=== PATIENT | female | born 1985 | race Caucasian/White ===

== ENCOUNTER 2019-01-09 08:20 | Inpatient (IN) | payer OTHER ==
--- NOTE | 2019-01-08 20:30 | Pre-op HX & Phy Repo 2 SIG ---
DATE OF ADMISSION: 01/09/2019 DATE OF SCHEDULED ADMISSION: 01/09/2019. HISTORY OF PRESENT ILLNESS: The patient is a 33-year-old female in overall stable health with a malfunctioning Canseco continent ileostomy with severe difficulty with intubation. The patient developed ulcerative colitis and in 2013 underwent abdominal colectomy with creation of a conventional Kady ileostomy. In July 2017, she underwent surgery in [place] including removal of the remaining sigmoid colon, rectum, and anus involving abdomino-perineal proctectomy and creation of a Canseco continent ileostomy. The patient did well intubating three times a day and not at all at night with her Canseco pouch. However, in 06/09/2018 in [place] she underwent total abdominal hysterectomy and revision of her Canseco continent ileostomy because of some difficulty with intubation. After that surgery, the patient had an infection, wound separation which was re-sutured and packed. Following this, the patient had more difficulty intubating and on 12/01/2018 and 12/13/2018 at her home in [place], she had to go to the emergency room and finally underwent a Canseco pouch endoscopy and a 26-[place]an Malagon catheter was placed with the inflated balloon so it could not come out. Since that time, she keeps the indwelling catheter to a drainage bag, but she has stool leaking around it and increasing peristomal skin irritation and peristomal pain. She is scheduled to undergo admission, pouch endoscopy and surgical revision of her malfunctioning Canseco continent ileostomy. She states that she does not have any incontinence despite the difficulty with intubation except leaking stool around the indwelling catheter. The patient states that she has had pouchitis since November 2018, which she says is chronic and she takes cefdinir. PAST MEDICAL HISTORY: Medications: albuterol, spironolactone for cystic acne, Xanax, cefdinir for pouchitis, Cleocin vaginal gel, Bentyl, atarax, lamotrigine for depression, methenamine-hyoscyamine for bladder spasms, and Elmiron for her bladder. ALLERGIES: Codeine, Reglan, sulfa and Vicryl sutures, which she was told by her surgeon when she got a wound infection. OPERATIONS: In addition to the above, she has undergone cholecystectomy, removal of a pilonidal cyst, and section. REVIEW OF SYSTEMS: She is 1, para 1. She has a history of interstitial cystitis, fibromyalgia, some chronic drainage from the perineum, and history of endometriosis. She states that she has perineal sinus. PHYSICAL EXAMINATION: The patient is 5 feet and 3 inches, approximately 150 pounds. She is arriving from [place] of [place] and will be examined upon arrival and dictated separately. IMPRESSION: 1. Malfunctioning Canseco continent intestinal reservoir continent ileostomy with severe difficulty with intubation. 2. History of ulcerative colitis. 3. STATUS POST MULTIPLE ABDOMINAL OPERATIONS: 3.1. Cholecystectomy. 3.2. section. 3.3. Abdominal colectomy and Kady ileostomy in 2013. 3.4. Canseco continent intestinal reservoir and abdomino-perineal proctectomy in 07/27/2017 3.5. Total abdominal hysterectomy with revision of Canseco continent ileostomy in 06/09/2018. (All of these operations done in other states). PLAN: The patient will be admitted and undergo insertion of a dual lumen PICC line, bowel prep with intravenous hydration to prevent otherwise inevitable dehydration in this patient with ileostomy, pouch endoscopy, and continuous drainage of the pouch to suction or gravity drainage in preparation for surgery 01/10/2019. I have had a full discussion with the patient regarding the nature of her condition, the nature of the surgery, indications, alternatives, options, and risks including bleeding, infection, injury to adjacent structures or organs, additional difficulties that could occur with her Canseco pouch function or structure, etc. I will have another complete discussion in person when she arrives from out of state. Jose Aceves M.D. : YEVGENIY JOB#: [id number] CC: FIDENCIO
[~2019-01-09] VITALS: Ht 165.1 cm; Wt 64.9 kg
[2019-01-09 09:20] VITALS: BP 110/66
--- NOTE | 2019-01-09 09:20 | NUR ---
NURSE NOTES: PATIENT RECEIVED A DIRECT ADMISSION TO ROOM 306-2. PT. AOX4, AMBULATORY. PATIENT AND SPOUSE ORIENTED TO ROOM. DISCUSSED PLAN OF CARE FOR THE DAY. QUESTIONS ANSWERED, NEEDS MET. WILL BE SEEN BY DR. CLAYTON TODAY. CALL LIGHT WITHIN REACH, BED IN LOWEST AND LOCKED POSITION.
[2019-01-09 10:09] LABS: BASOPHILS % (AUTO) 1.3 % (0.0-2.0); EOSINOPHILS % (AUTO) 8.4 % (0.0-3.0); HEMATOCRIT 40.7 % (37.0-47.0); HEMOGLOBIN 13.1 G/DL (12.0-16.0); LYMPHOCYTES % (AUTO) 28.4 % (20.0-45.0); MEAN CORPUSCULAR VOLUME 79 FL (80-99); MONOCYTES % (AUTO) 6.7 % (1.0-10.0); NEUTROPHILS % (AUTO) 55.2 % (45.0-75.0); PLATELET COUNT 464 K/UL (150-450); RED BLOOD COUNT 5.15 M/UL (4.20-5.40); WHITE BLOOD COUNT 8.3 K/UL (4.8-10.8)
[2019-01-09 10:12] LABS: APPEARANCE,URINE CLEAR; BILIRUBIN, URINE NEGATIVE (NEGATIVE); COLOR,URINE PALE YELLOW; GLUCOSE, URINE (UA) NEGATIVE (NEGATIVE); KETONES,URINE NEGATIVE (NEGATIVE); LEUKOCYTE ESTERASE ,URINE NEGATIVE (NEGATIVE); NITRITE,URINE NEGATIVE (NEGATIVE); PH,URINE 6 (4.5-8.0); PROTEIN,URINE NEGATIVE (NEGATIVE); UROBILINOGEN,URINE NORMAL MG/DL (0.0-1.0)
[2019-01-09 10:19] LABS: INR 0.9 (0.9-1.1)
[2019-01-09 10:23] LABS: ANION GAP 10 mmol/L (5-15); BLOOD UREA NITROGEN 5 mg/dL (7-18); CARBON DIOXIDE 27 MMOL/L (21-32); CHLORIDE 105 MMOL/L (98-107); CREATININE 0.7 MG/DL (0.55-1.30); POTASSIUM 3.7 MMOL/L (3.5-5.1); SODIUM 142 MMOL/L (136-145)
[2019-01-09 10:28] LABS: ALANINE AMINOTRANSFERASE 31 U/L (12-78); ALBUMIN 4.2 G/DL (3.4-5.0); ALKALINE PHOSPHATASE 60 U/L (46-116); ASPARTATE AMINO TRANSFERASE 18 U/L (15-37); BILIRUBIN,TOTAL 0.3 MG/DL (0.2-1.0)
[2019-01-09] MEDS ORDERED: Lidocaine 1% Plain 30 ml INJ ONE (10:30)
[2019-01-09] MEDS ORDERED: Heparin1,000 units/500ml Premix(Conc:2 units/ml) IV ONE (10:30)
--- NOTE | 2019-01-09 11:20 | NUR ---
RADIOLOGY DEPT., CHEST X-RAY DONE.-P.DYE
--- NOTE | 2019-01-09 11:20 | Diagnostic Imaging Report ---
Indication: Shortness of breath Technique: One view of the chest Comparison: none Findings: Lungs and pleural spaces are clear. Heart size is normal Impression: No acute process
[2019-01-09 11:28] VITALS: BP 121/78
--- NOTE | 2019-01-09 11:58 | NUR ---
*-* CASE MANAGEMENT NOTES *-* EMAIL RECEIVED FROM OMAR MAYO TO FAX CLINICALS AFTER 2N DAY IN HOUSE. JOVANNI POPE ASSIGNED PLS FAX CLINICALS TO [phone]
[2019-01-09] MEDS: Neomycin Sulfate 500mg Tab ORAL SCH ×3 (12:07→20:51)
--- NOTE | 2019-01-09 12:07 | Pre-Procedure Note/Attestation ---
Pre-Procedure Note/Attestation Complete Prior to Procedure Planned Procedure: not applicable Procedure Narrative: Canseco continent ileostomy pouch endoscopy Indications for Procedure Pre-Operative Diagnosis: malfunctioning Canseco continent ileostomy with inability to intubate Attestation I attest that I discussed the nature of the procedure; its benefits; risks and complications; and alternatives (and the risks and benefits of such alternatives ), prior to the procedure, with the patient (or the patient's legal malt liquors sales representative). I attest that, if there was a reasonable possibility of needing a blood transfusion, the patient (or the patient's legal malt liquors sales representative) was given the [facility] standardized written summary, pursuant to the Francisco Javier [place] Blood Safety Act ([place] Health and Safety Code # 1645, as amended). I attest that I re-evaluated the patient just prior to the surgery and that there has been no change in the patient's H&P, except as documented below: none Jose Aceves MD Jan 09, 2019 12:07
--- NOTE | 2019-01-09 13:31 | Brief Operative Note ---
Immediate Post Operative Note Operative Note Pre-op Diagnosis: malfunctioning Canseco continent ileostomy with inability to intubate Procedure: Canseco continent ileostomy pouch endoscopy Post-op Diagnosis: redundant and angulated access segment Post-op Diagnosis: same as pre-op Findings: consistent w/pre-op dx studies Surgeon: farida Anesthesia: other - none Specimen: none Complications: none Condition: stable Fluids: none Estimated Blood Loss: none Drains: other - 28 Malagon to Canseco pouch Implant(s) used?: No Jose Aceves MD Jan 09, 2019 13:31
--- NOTE | 2019-01-09 14:15 | Pre-Procedure Note/Attestation ---
Pre-Procedure Note/Attestation Complete Prior to Procedure Planned Procedure: left Procedure Narrative: PICC Indications for Procedure Pre-Operative Diagnosis: needs extermination inspector IV access Attestation I attest that I discussed the nature of the procedure; its benefits; risks and complications; and alternatives (and the risks and benefits of such alternatives ), prior to the procedure, with the patient (or the patient's legal wire rope sales representative). I attest that, if there was a reasonable possibility of needing a blood transfusion, the patient (or the patient's legal wire rope sales representative) was given the [facility] standardized written summary, pursuant to the Francisco Javier [place] Blood Safety Act ([place] Health and Safety Code # 1645, as amended). I attest that I re-evaluated the patient just prior to the surgery and that there has been no change in the patient's H&P, except as documented below: Will Cee MD Jan 09, 2019 14:15
--- NOTE | 2019-01-09 14:16 | Brief Operative Note ---
Immediate Post Operative Note Operative Note Pre-op Diagnosis: needs long term care pharmacist IV access Procedure: PICC Post-op Diagnosis: same as pre-op Surgeon: Jose Armando Wilcox Anesthesia: local Specimen: none Complications: none Condition: stable Fluids: none Implant(s) used?: No Will Wilcox MD Jan 09, 2019 14:16
--- NOTE | 2019-01-09 14:18 | NUR ---
LEFT UPPER EXTREMITY PICC LINE PLACEMENT BY DR. NURIS AMATO. FA
--- NOTE | 2019-01-09 14:23 | Diagnostic Imaging Report ---
Indications: Needs long-term IV access Technique: Ultrasound confirms patent compressible left basilic vein. Total sterile technique, including sterile probe cover and sterile gel, hat, mask, sterile gown, large sterile drape, and preparation with 2% chlorhexidine utilized. Local anesthesia with 1% lidocaine. Under real-time ultrasound guidance, puncture basilic vein using 21-gauge needle, documented and archived, passage 0.018 guidewire under direct fluoroscopy, which was used to determine appropriate catheter length, exchange for 4 Maldivian peel-away sheath. 4 Maldivian Bard dual-lumen power PICC cut to 46 cm. It was inserted through the peel-away sheath. Peel-away sheath and guidewire removed. Catheter fixed to the skin. Both catheter ports aspirated and flushed. Patient tolerated procedure well, without immediate complication. Digital radiograph documents satisfactory catheter tip position, at the cavoatrial junction. Total fluoroscopy time 13.4 seconds. Total dose area product [id number] [id number] Total number of images: 1 Impression: Successful placement of left arm PICC under sonographic and fluoroscopic guidance, as described above.
[2019-01-09 14:25] VITALS: BP 108/67
--- NOTE | 2019-01-09 14:26 | NUR ---
NURSE NOTES: PATIENT RETURNED FROM GI LAB AND PLACEMENT OF PICC LINE TO LEFT UPPER EXTREMITY. AOX4. UP TO BEDSIDE HAVING LUNCH. DENIES PAIN. VSS. AFEBRILE . ILEOSTOMY CONNECTED TO DRAINAGE BAG. DISCUSSED PLAN OF CARE THIS EVENING. VERBALIZED UNDERSTANDING. CALL LIGHT WITHIN REACH. SPOUSE AT BEDSIDE.
[2019-01-09] MEDS ORDERED: BENTYL10 MG/1 ML PO (15:04)
[2019-01-09] MEDS ORDERED: CEFDINIR300 MG PO (15:04)
[2019-01-09] MEDS ORDERED: VISTARIL50 MG ORAL (15:04)
[2019-01-09] MEDS ORDERED: LAMICTAL100 MG ORAL (15:04)
[2019-01-09] MEDS ORDERED: NEXPLANON68 MG SQ (15:04)
[2019-01-09] MEDS ORDERED: ELMIRON100 MG ORAL (15:04)
[2019-01-09] MEDS ORDERED: ALBUTEROL SULF8.5 GM INH (15:04)
[2019-01-09] MEDS ORDERED: SPIRONOLACTONE100 MG ORAL (15:04)
[2019-01-09] MEDS ORDERED: ESTRADIOL-NORE1 EACH PO (15:04)
[2019-01-09] MEDS ORDERED: XANAX0.25 MG ORAL (15:04)
[2019-01-09 16:00] VITALS: BP 99/66
--- NOTE | 2019-01-09 16:45 | Procedure Note ---
DATE OF PROCEDURE: 01/09/2019 ENDOSCOPY PROCEDURE REPORT ENDOSCOPIST: Jose Aceves M.D. ANESTHESIA: None. SEDATION: None. PRE-ENDOSCOPY DIAGNOSES: 1. Malfunctioning Canseco continent ileostomy with inability to intubate to evacuate stool. 2. History of ulcerative colitis. 3. Status post multiple abdominal operations including proctocolectomy and Canseco pouch with most recently surgery June 09, 2018, total abdominal hysterectomy and Canseco pouch revision, all done elsewhere. POST-ENDOSCOPY DIAGNOSES: 1. Malfunctioning Canseco continent ileostomy with inability to intubate to evacuate stool. 2. History of ulcerative colitis. 3. Status post multiple abdominal operations including proctocolectomy and Canseco pouch with most recently surgery June 09, 2018, total abdominal hysterectomy and Canseco pouch revision, all done elsewhere. ENDOSCOPY PERFORMED: Canseco continent ileostomy pouch endoscopy. FINDINGS: Elongated, redundant and angulated access segment. The pouch mucosa is completely normal. The nipple valve is well formed circumferentially. DESCRIPTION OF PROCEDURE: The patient was taken to the GI lab and without any anesthesia or sedation given or required, she was positioned supine. Initially, I irrigated her indwelling 26-[place]raltarian Malagon catheter placed several weeks ago during an emergency endoscopy in [place] when she could not get a catheter into her pouch. Once I irrigated this clear, I decompressed the balloon and took out the catheter. I used a GIF-P140 endoscope entering the stoma and under direct vision, the distance to the tip of the valve was 12 cm which in this patient should be approximately 7 cm. The pouch is entered. The pouch is distensible and well-formed. The mucosa is completely normal throughout. Retroflexed views revealed a circumferentially well-formed nipple valve although slightly shortened perhaps 3.5 to 4 cm instead of 5. Withdrawal views confirmed the above findings. After removing the endoscope, I was readily able to insert a 28-Gibralt[place] Malagon catheter into the pouch confirmed by irrigation, taped to the skin, dressing over the stoma and connected to a gravity drainage bag. The patient will be prepared for surgery laparotomy with revision of Canseco continent ileostomy in the morning. She tolerated the endoscopy well. Jose Aceves M.D. DR: Jerry JOB#: [id number] CC: FIDENCIO
--- NOTE | 2019-01-09 16:51 | Anethesia Preoperative Eval ---
Anesthesia Pre-op PMH/ROS General Date of Evaluation: Jan 09, 2019 Time of Evaluation: 16:47 Anesthesiologist: Gutierrez ASA Score: ASA 2 Mallampati Score Class I : Soft palate, uvula, fauces, pillars visible Class II: Soft palate, uvula, fauces visible Class III: Soft palate, base of uvula visible Class IV: Only hard plate visible Mallampati Classification: Class II Surgeon: Yola Diagnosis: Malfunctioning continent pouch Surgical Procedure: Revision of continent pouch Anesthesia History: none Family History: no anesthesia problems Allergies: Coded Allergies: CODEINE (Verified Allergy, Unknown, 01/09/19) METOCLOPRAMIDE (Verified Allergy, Unknown, 01/09/19) SULFA (SULFONAMIDE ANTIBIOTICS) (Verified Allergy, Unknown, 01/09/19) SUTURE (Verified Allergy, Unknown, 01/09/19) VICRYL CIPROFLOXACIN (Verified Adverse Reaction, Unknown, 01/09/19) ANGRY, CRYING, VERY EMOTIONAL. Medications: see eMAR Patient NPO?: Yes Past Medical History Cardiovascular: Denies: HTN, CAD, [place], valve dz, arrhythmia, other Pulmonary: Denies: asthma, COPD, TAMAR, other Gastrointestinal/Genitourinary: Reports: GERD, other - h/o UC s/p total colectomy; Denies: CRI, ESRD Neurologic/Psychiatric: Reports: depression/anxiety; Denies: dementia, CVA, TIA, other Endocrine: Denies: DM, hypothyroidism, steroids, other HEENT: Denies: cataract (L), cataract (R), glaucoma, EGEGIK (L), EGEGIK (R), other Hematology/Immune: Reports: anemia - mild; Denies: DVT, bleeding disorder, other Musculoskeletal/Integumentary: Denies: OA, RA, DJD, DDD, edema, other PMH Narrative: as above PSxH Narrative: multiple abdominal Sx, see H&P Anesthesia Pre-op Phys. Exam Physician Exam Last Vital Signs Date Time Temp Pulse Resp B/P (MAP) Pulse Ox O2 Delivery O2 Flow Rate FiO2 01/09/19 16:00 98.3 74 20 99/66 (77) 97 01/09/19 09:37 Room Air Constitutional: NAD Neurologic: CN 2-12 intact Cardiovascular: RRR, no M/R/G Respiratory: CTA Gastrointestinal: S/NT/ND Airway Exam Mallampati Score: Class II MO: full Neck: flexible ROM: full Teeth: intact Dentures: no upper, no lower Anesthesia Pre-op A/P Labs Hematology Test 01/09/19 10:00 White Blood Count 8.3 K/UL (4.8-10.8) Red Blood Count 5.15 M/UL (4.20-5.40) Hemoglobin 13.1 G/DL (12.0-16.0) Hematocrit 40.7 % (37.0-47.0) Mean Corpuscular Volume 79 FL (80-99) L Mean Corpuscular Hemoglobin 25.4 PG (27.0-31.0) L Mean Corpuscular Hemoglobin Concent 32.2 G/DL (32.0-36.0) Red Cell Distribution Width 12.0 % (11.6-14.8) Platelet Count 464 K/UL (150-450) H Mean Platelet Volume 5.5 FL (6.5-10.1) L Neutrophils (%) (Auto) 55.2 % (45.0-75.0) Lymphocytes (%) (Auto) 28.4 % (20.0-45.0) Monocytes (%) (Auto) 6.7 % (1.0-10.0) Eosinophils (%) (Auto) 8.4 % (0.0-3.0) H Basophils (%) (Auto) 1.3 % (0.0-2.0) Coagulation Test 01/09/19 10:00 Prothrombin Time 9.9 SEC (9.30-11.50) Prothromb Time International Ratio 0.9 (0.9-1.1) Activated Partial Thromboplast Time 32 SEC (23-33) Chemistry Test 01/09/19 10:00 Sodium Level 142 MMOL/L (136-145) Potassium Level 3.7 MMOL/L (3.5-5.1) Chloride Level 105 MMOL/L (98-107) Carbon Dioxide Level 27 MMOL/L (21-32) Anion Gap 10 mmol/L (5-15) Blood Urea Nitrogen 5 mg/dL (7-18) L Creatinine 0.7 MG/DL (0.55-1.30) Estimat Glomerular Filtration Rate > 60 mL/min (>60) Glucose Level 91 MG/DL (74-106) Calcium Level 9.0 MG/DL (8.5-10.1) Total Bilirubin 0.3 MG/DL (0.2-1.0) Aspartate Amino Transf (AST/SGOT) 18 U/L (15-37) Alanine Aminotransferase (ALT/SGPT) 31 U/L (12-78) Alkaline Phosphatase 60 U/L (46-116) Total Protein 8.3 G/DL (6.4-8.2) H Albumin 4.2 G/DL (3.4-5.0) Globulin 4.1 g/dL Albumin/Globulin Ratio 1.0 (1.0-2.7) Risk Assessment & Plan Assessment: ASA 2 Plan: GA with ETT, PONV prevention Status Change Before Surgery: No Pre-Antibiotics Drug: as scheduled Valentin Whitley MD Jan 09, 2019 16:51
--- NOTE | 2019-01-09 16:56 | General Progress Note ---
Progress Note Progress Note H&P dictated. Full discussion with patient and Endoscopy revealed elongated, redundant and angulated access segment. Normal pouch and valve Jose Aceves MD Jan 09, 2019 16:56
[2019-01-09] MEDS: D5 1/2NS w/KCl 20mEq 1,000 ML IV SCH (17:46)
[2019-01-09] MEDS ORDERED: NS Irrig 1000ml ONE (18:33)
--- NOTE | 2019-01-09 18:35 | NUR ---
NURSE NOTES: PATIENT DOING WELL. TOLERATING CLEAR LIQUIDS. PRE-OP COMPLETED. SEEN BY FORREST PEPE THIS EVENING. SPUSE PRESENT AT THE TIME. AMBULATING AROUND UNIT.
--- NOTE | 2019-01-09 19:39 | NUR ---
HAND-OFF: Report given to SAMAN HIRSCH RN.
[2019-01-09 20:00] VITALS: BP 110/76
[2019-01-09] MEDS: Ampicillin/Sulbactam Sod 3 GM in NS 110 ML IV SCH (23:13)
[2019-01-10] VITALS (17 sets, daily range): BP systolic 90–129; BP diastolic 50–70
[2019-01-10] MEDS: D5 1/2NS w/KCl 20mEq 1,000 ML IV SCH (03:00)
--- NOTE | 2019-01-10 03:15 | Pre-op HX & Phy Repo 2 SIG ---
DATE OF ADMISSION: 01/09/2019 SUBJECTIVE: The [place] and is examined. She is well developed and well nourished, 5 foot 3 inches, approximately 150 pounds, in stable condition with an indwelling catheter in her Canseco continent ileostomy pouch, which is plugged. OBJECTIVE: HEENT: Within normal limits. LUNGS: Clear. HEART: Regular rhythm. BREASTS: Without masses. ABDOMEN: Soft. There is a lower midline scar and a transverse suprapubic scar from her prior operations. There is no evidence of abdominal wall hernia. The stoma of her Canseco continent ileostomy is low in the right lower quadrant and well-formed. PELVIC: Status post hysterectomy. RECTAL: Status post proctectomy. EXTREMITIES: Without edema. Pulses 2+ femoral to pedal bilaterally. NEUROLOGIC: Physiologic. IMPRESSION: 1. Malfunctioning Canseco continent ileostomy with severe inability to intubate, to evacuate stool. 2. History of ulcerative colitis. 3. Depression. 4. Interstitial cystitis. 5. Fibromyalgia. 6. STATUS POST MULTIPLE ABDOMINAL OPERATIONS: 6.1. Cholecystectomy. 6.2. section. 6.3. Abdominal colectomy and Kady ileostomy in 2013. 6.4. Canseco continent intestinal reservoir and abdominoperineal proctectomy performed in [place] July 27, 2017. 6.5. Total abdominal hysterectomy with revision of Canseco continent ileostomy performed in [place] June 09, 2018. PLAN: The patient will be admitted and undergo insertion of a dual lumen PICC line. She will receive intravenous hydration during her bowel prep. A pouch endoscopy will be performed and she will have a catheter inserted to continuous gravity drainage in preparation for surgery 01/10/2019. I have had a complete discussion with the patient regarding her surgery indications, alternatives, options, and risks. Jose Aceves M.D. DR: CYNTHIA/GAYATRI JOB#: [id number] CC:
[2019-01-10] MEDS: Ampicillin/Sulbactam Sod 3 GM in NS 110 ML IV SCH ×4 (05:28→23:29)
[2019-01-10] MEDS ORDERED: Heparin 5000 units/ml inj SUBQ SCH (05:30)
[2019-01-10 05:46] LABS: BASOPHILS % (AUTO) 1.1 % (0.0-2.0); HEMATOCRIT 38.2 % (37.0-47.0); HEMOGLOBIN 12.5 G/DL (12.0-16.0); LYMPHOCYTES % (AUTO) 23.4 % (20.0-45.0); MEAN CORPUSCULAR VOLUME 79 FL (80-99); MONOCYTES % (AUTO) 8.8 % (1.0-10.0); NEUTROPHILS % (AUTO) 55.8 % (45.0-75.0); PLATELET COUNT 402 K/UL (150-450); RED BLOOD COUNT 4.82 M/UL (4.20-5.40); RED CELL DISTRIBUTION WIDTH 13.2 % (11.6-14.8); WHITE BLOOD COUNT 7.3 K/UL (4.8-10.8)
[2019-01-10 06:09] LABS: ALANINE AMINOTRANSFERASE 28 U/L (12-78); ALBUMIN 3.6 G/DL (3.4-5.0); ALKALINE PHOSPHATASE 52 U/L (46-116); ANION GAP 8 mmol/L (5-15); ASPARTATE AMINO TRANSFERASE 20 U/L (15-37); BILIRUBIN,TOTAL 0.6 MG/DL (0.2-1.0); BLOOD UREA NITROGEN 3 mg/dL (7-18); CALCIUM 8.3 MG/DL (8.5-10.1); CARBON DIOXIDE 26 MMOL/L (21-32); CHLORIDE 107 MMOL/L (98-107); CREATININE 0.7 MG/DL (0.55-1.30); FERRITIN 31 NG/ML (8-388); POTASSIUM 3.5 MMOL/L (3.5-5.1); SODIUM 141 MMOL/L (136-145)
--- NOTE | 2019-01-10 07:00 | Pre-Procedure Note/Attestation ---
Pre-Procedure Note/Attestation Complete Prior to Procedure Planned Procedure: not applicable Procedure Narrative: laparotomy and revision of Canseco Continent Ileostomy; possible gastrostomy; curette and cauterize perineal and pilonidal sinus tracts Indications for Procedure Pre-Operative Diagnosis: malfunctioning Canseco continent ileostomy; chronic perineal and pilonidal sinus tracts Attestation I attest that I discussed the nature of the procedure; its benefits; risks and complications; and alternatives (and the risks and benefits of such alternatives ), prior to the procedure, with the patient (or the patient's legal career representative). I attest that, if there was a reasonable possibility of needing a blood transfusion, the patient (or the patient's legal career representative) was given the [place] [facility] standardized written summary, pursuant to the Francisco Javier [place] Blood Safety Act ([place] Health and Safety Code # 1645, as amended). I attest that I re-evaluated the patient just prior to the surgery and that there has been no change in the patient's H&P, except as documented below: none Jose Aceves MD Jan 10, 2019 07:00
[2019-01-10] MEDS ORDERED: NeoSporin Gu Irrig 1ml Amp IRRIG ONE (07:20)
[2019-01-10] MEDS ORDERED: Bacitracin 50000 Units Vial ONE (07:20)
[2019-01-10] MEDS ORDERED: Rocuronium Bromide 50mg/5ml Inj IV ONE (07:26)
[2019-01-10] MEDS ORDERED: fentaNYL 100 mcg/2 mL IV ONE (07:27)
[2019-01-10] MEDS ORDERED: Propofol 200mg/20ml IV ONE (07:27)
[2019-01-10] MEDS ORDERED: Lidocaine 1% MPF 10mg/ml 5ml ONE (07:27)
[2019-01-10] MEDS ORDERED: Midazolam 2mg/2ml Inj ONE ×2 (07:27→09:20)
[2019-01-10] MEDS ORDERED: LR 1000ml ONE (07:30)
[2019-01-10] MEDS ORDERED: NS Irrig 1000ml ONE ×2 (07:30→18:32)
[2019-01-10] MEDS ORDERED: Sterile Water Irrig 1000ml IRRIG ONE (07:30)
--- NOTE | 2019-01-10 07:30 | NUR ---
NURSE NOTES: PATIENT SENT TO SURGERY PRIOR TO DAY SHIFT. REPORT RECEIVED FROM NIGHT RN.
[2019-01-10] MEDS ORDERED: Dexamethasone 4mg/ml vial ONE (07:40)
[2019-01-10] MEDS ORDERED: LR 1000ml 1,000 ML IVLG SCH (08:01)
[2019-01-10] MEDS ORDERED: LORazepam Inj 2mg/ml 1ml IV PRN (08:15)
[2019-01-10] MEDS ORDERED: fentaNYL 100 mcg/2 mL IV PRN (08:15)
[2019-01-10] MEDS ORDERED: Hydromorphone 0.5mg/0.5ml inj IVP PRN (08:15)
[2019-01-10] MEDS ORDERED: DiphenhydrAMINE 50mg/ml Inj IVP PRN ×2 (08:15→10:00)
[2019-01-10] MEDS ORDERED: Ketorolac 30mg Inj IV PRN ×2 (08:15→14:00)
[2019-01-10] MEDS ORDERED: Midazolam 2mg/2ml Inj IVP PRN (08:15)
--- NOTE | 2019-01-10 08:18 | NUR ---
HAND-OFF: Report given to CARIE Woodard. Patient sent to surgery in stable condition. True ileo output of 820cc. Urine output of 1800cc.
--- NOTE | 2019-01-10 09:44 | Immediate Post-Op Evaluation ---
Immediate Post-Op Evalulation Immediate Post-Op Evalulation Procedure: continent intestinal reservoir repair Date of Evaluation: Jan 10, 2019 Time of Evaluation: 09:44 IV Fluids: 1.5L Blood Products: 0 Estimated Blood Loss: 50 Urinary Output: 150 Blood Pressure Systolic: 112 Blood Pressure Diastolic: 65 Pulse Rate: 86 Respiratory Rate: 16 O2 Sat by Pulse Oximetry: 100 Temperature (Fahrenheit): 97.6 Pain Score (1-10): 0 Nausea: No Vomiting: No Complications 0 Patient Status: awake, reacts, patent, none Hydration Status: adequate Drug: On floor Given Within 1 Hr of Incision: Yes Leslie Craft MD Jan 10, 2019 09:44
--- NOTE | 2019-01-10 09:48 | Brief Operative Note ---
Immediate Post Operative Note Operative Note Pre-op Diagnosis: malfunctioning Canseco continent ileostomy; chronic perineal and pilonidal sinus tracts Procedure: laparotomy and revision of Canseco Pouch partial valve desussception; curette and cauterize perineal and pilonidal sinus tracts Post-op Diagnosis: same Post-op Diagnosis: same as pre-op Findings: consistent w/pre-op dx studies Surgeon: farida Special Librarian: jose m Anesthesiologist: sylwia Anesthesia: general Specimen: yes - portion of omentum, pelvic cyst Complications: none Condition: stable Fluids: see anesthesia record Estimated Blood Loss: volume - 50cc Drains: other - 28 Malagon to Canseco Pouch Implant(s) used?: No Jose Aceves MD Jan 10, 2019 09:48
[2019-01-10] MEDS ORDERED: PCA HYDROmorphone 1mg/ml 30 ML IV PRN (10:00)
[2019-01-10] MEDS ORDERED: LORazepam 1mg tab SL PRN (10:00)
[2019-01-10] MEDS ORDERED: Naloxone 0.4mg/ml Inj IVP PRN (10:00)
[2019-01-10] MEDS ORDERED: Rate Change PCA 1 Each MISC PRN (10:00)
--- NOTE | 2019-01-10 11:16 | NUR ---
*-* INSURANCE *-* ALL CLINICALS AND REVIEWS HAVE BEEN FAXED TO: AYLEEN TAYLOR ASSIGNED PLS FAX CLINICALS TO [phone]
--- NOTE | 2019-01-10 11:20 | NUR ---
NURSE NOTES: PATIENT RETURNED FROM SURGERY VIA PACU ON BED. AOX4. ABDOMINAL SURGICAL SITE C/D/I. LUNGS BILATERALLY DIMINISHED. SKIN WARM AND DRY.ILEOSTOMY CATHETER ATTACHED TO DRAINAGE BAG PATENT AND SECURED. RICE CATHETER PATENT AND SECURED TO RIGHT THIGH. STRAW-COLORED URINE WITH NO SEDIMENTS PRESENT.STEVEN PICC INTACT WITH IVFS AND RESEARCH DIETITIAN DILAUDID ATTACHED. SETTINGS VERIFIED AGAINST MD ORDER. PATIENT STATES PAIN 5/10 ON PAIN SCALE. RETURN DEMONSTRATION SUCCESSFUL. QUESTIONS ANSWERED AND NEEDS MET AT THIS TIME. BED IN LOW AND LOCKED POSITION. CALL LIGHT WITHIN REACH. SPOUSE AT BEDSIDE. REPORT RECEIVED FROM KRIS [employer] SCIENCE TECHNICIAN.
[2019-01-10] MEDS: D5 1/4NS w/KCl 20mEq 1,000 ML IV SCH ×2 (13:09→21:23)
[2019-01-10] MEDS ORDERED: Tubing IV Secondary IV ONE (13:42)
[2019-01-10] MEDS ORDERED: NS 275ml ONE (13:42)
--- NOTE | 2019-01-10 14:20 | NUR ---
CASE MANAGEMENT:REVIEW 01/09/19 33 YR OLD FEMALE HERE FOR ELECTIVE SURGERY SI:ILEOSTOMY MALFUNCTION 97.9 77 20 110/66 100% ON RA IS: COLMENARES CONTINENT ILEOSTOMY POUCH ENDOSCOPY : TO MED/SURG POST OP 3 01/10/19 SI: MALFUNCTIONING COLMENARES CONTINENT ILEOSTOMY CHRONIC PERINEAL AND PILONIDAL SINUS TRACTS 98.3 75 18 92/57 98% on ra IS: TO SURGERY FOR: REVISION OF POUCH PARTIAL VALVE DESSUSCEPTION CURETTE & CAUTERIZE PERINEAL AND PILONIDAL SINUS TRACTS : TO MED/SURG POST OP INTERQUAL CRITERIA MET
--- NOTE | 2019-01-10 16:45 | Operative Note - Dictated ---
DATE OF OPERATION: 01/10/2019 SURGEON: Jose Aceves M.D. RESPIRATORY COORDINATOR SURGEON: Mark Villarreal M.D. ANESTHESIOLOGIST: Dr. Leslie Zapata. TYPE OF ANESTHESIA: General endotracheal. PREOPERATIVE DIAGNOSES: 1. 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 2. History of ulcerative colitis. 3. Chronic perineal and pilonidal sinus tracts. 4. STATUS POST MULTIPLE ABDOMINAL OPERATIONS: 4.1. Cholecystectomy. 4.2. section. 4.3. Abdominal colectomy and Kady ileostomy in 2013. 4.4. Canseco continent ileostomy and abdominal-perineal proctectomy in July 2017. 4.5. Total abdominal hysterectomy with revision of Canseco continent ileostomy in May 2018. (All these operations were done in other states). POSTOPERATIVE DIAGNOSES: 1. 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 2. History of ulcerative colitis. 3. Chronic perineal and pilonidal sinus tracts. 4. STATUS POST MULTIPLE ABDOMINAL OPERATIONS: 4.1. Cholecystectomy. 4.2. section. 4.3. Abdominal colectomy and Kady ileostomy in 2013. 4.4. Canseco continent ileostomy and abdominal-perineal proctectomy in July 2017. 4.5. Total abdominal hysterectomy with revision of Canseco continent ileostomy in May 2018. (All these operations were done in other states). OPERATION PERFORMED: 1. Laparotomy with revision of Canseco continent ileostomy partial valve dessusception. 2. Excision of pelvic cyst and omental remnant. 3. Curetting and cauterization of chronic perineal and pilonidal sinus tracts. DESCRIPTION OF PROCEDURE: The patient was taken to the operating room and under general endotracheal anesthesia with sequential compression device stockings and Malagon catheter in place, she had been given preoperative intravenous antibiotics and subcutaneous heparin. After initiating general anesthesia, the patient was turned into the left lateral decubitus position. The pilonidal sinus was curetted and cauterized and packed. There was a cavity down to the sacrum approximately 1.5 cm. Near the anterior part of the proctectomy scar is a chronic sinus tract that was cauterized and dressed with dry gauze. The patient was then returned to supine position and prepped and draped in usual fashion. Previous lower midline incision was reopened extending upwards above the umbilicus ultimately down to the pubis. The patient had a lower midline prior scar and a Pfannenstiel scar. The stoma of the Canseco pouch was to the right of midline in the Pfannenstiel scar itself very close to the pubis. There were only a few adhesions from the omental remnant to the abdominal wall which were taken down and a small portion of omentum resected ligating with 0 silk. There were adhesions of the pouch to the pelvis that were mobilized elevating the pouch and the afferent bowel. There was a small loculated fluid cystic collection and the wall was excised given for pathology. The 28-Nigerian Malagon catheter was put through the stoma into the pouch and the afferent bowel manually occluded. The pouch was distended with 400 mL of saline, but there was incontinence around the catheter and when the catheter was removed, there was significant incontinence. Catheter was reinserted and the pouch decompressed. The pouch anatomy was unusual because it appeared that the pouch was created in a rotated fashion with the mesentery anterior and the pouch wall posterior. Initially I made a pouch enterotomy, which was ultimately recognized to be in the collar and it was closed with continuous locking 2-0 chromic imbricated by 3-0 silk. The pouch was rotated so we could see more of the posterior aspect and made another pouch enterotomy. The 28-Nigerian Malagon catheter was readily grasped and brought through. The nipple valve was grasped with [place] clamps and readily reformed to nearly 6 cm in length. Using the linear stapler 60 blue cartridge, a row of debbie was placed away from the mesentery. The mesentery was actually anterior rather than the typical posterior. Through a separate small pouch enterotomy at the apex of the pouch the linear stapler 60 lower blade placed through the enterotomy into the lumen of the valve and then fired to staple the valve to the anterior pouch wall. The small enterotomy was closed with continuous locking 3-0 chromic imbricated with 3-0 silk. Now, the pouch enterotomy was closed with continuous locking 2-0 chromic imbricated with 3-0 silk. The afferent bowel was manually occluded. Pouch was again distended with 400 mL of saline. There was no sign of any extravasation. There was slight incontinence around the catheter. Catheter was removed and there was minimal incontinence. Catheter was reintroduced and the pouch decompressed. The patient has had an indwelling catheter for over a month and stenting the nipple valve open. I felt this would resolve with a short period of healing time. The field was irrigated and hemostasis was secured. The bladder and ureters had been avoided. The pouch was positioned back in the pelvis transversely and the bowel loops were placed anatomically. A 28-Nigerian Malagon positioned in the apex of the pouch and sutured to the skin with two sutures of 2-0 silk. It was flushed and connected to a gravity drainage bag. After ascertaining that hemostasis was secure, the midline incision was closed in one layer with continuous #1 looped PDS. Antibiotic soaked laps had been used to protect the incision during the procedure and the [place] retractor had been used. Now additional antibiotic irrigation was utilized and the skin closed with debbie. Dry sterile dressings were applied. Final sponge and needle counts were correct. The patient tolerated the procedure well and left the operating room in good condition. Jose Aceves M.D. DR: YEVGENIY JOB#: [id number] CC: FIDENCIO
--- NOTE | 2019-01-10 16:47 | NUR ---
NURSE NOTES: PATIENT DOING VERY WELL POST OPERATIVELY. PAIN MANAGED WHILE ON DILAUDID DIRECTOR OF OPTIMIZATION. VSS. USING INCENTIVE SPIROMETRY DIRECTED. RETURN DEMONSTRATION SUCCESSFUL. PATIENT REMAINS STABLE.BED IN LOW AND LOCKED IN POSITION. CALL LIGHT WITHIN REACH.
[2019-01-10] MEDS ORDERED: PCA Education Pamphlet MISC ONE (17:00)
--- NOTE | 2019-01-10 18:55 | NUR ---
HAND-OFF: Report given to SAMAN HIRSCH RN.
[2019-01-10] MEDS: PCA shift volume MISC SCH (19:11)
--- NOTE | 2019-01-10 19:30 | NUR ---
NURSE NOTES: Received report from CARIE Woodard. Patient is resting in bed alert and oriented with ileo draining serosanguineous fluid to gravity bag. Flushed 20cc of NS per protocol. PLANT PATHOLOGIST Dilaudid pump and remote at patient's side. Instructed patient to press button when green to deliver medication. PICC line dressing is c/d/i with no c/o of pain at this time. No SOB on room air. SCDs are on bilateral lower legs. at bedside. Will continue plan of care.
[2019-01-10] MEDS: LORazepam 1mg tab SL PRN (23:38)
[2019-01-11] VITALS (7 sets, daily range): BP systolic 90–101; BP diastolic 55–65
[2019-01-11] MEDS: Ampicillin/Sulbactam Sod 3 GM in NS 110 ML IV SCH ×4 (05:07→23:56)
[2019-01-11 06:02] LABS: BASOPHILS % (AUTO) 0.3 % (0.0-2.0); EOSINOPHILS % (AUTO) 0.2 % (0.0-3.0); HEMATOCRIT 33.9 % (37.0-47.0); HEMOGLOBIN 11.2 G/DL (12.0-16.0); LYMPHOCYTES % (AUTO) 10.4 % (20.0-45.0); MEAN CORPUSCULAR VOLUME 79 FL (80-99); NEUTROPHILS % (AUTO) 80.1 % (45.0-75.0); PLATELET COUNT 374 K/UL (150-450); RED BLOOD COUNT 4.28 M/UL (4.20-5.40); RED CELL DISTRIBUTION WIDTH 13.1 % (11.6-14.8); WHITE BLOOD COUNT 15.3 K/UL (4.8-10.8)
[2019-01-11 06:20] LABS: ANION GAP 2 mmol/L (5-15); BLOOD UREA NITROGEN 4 mg/dL (7-18); CALCIUM 8.3 MG/DL (8.5-10.1); CARBON DIOXIDE 29 MMOL/L (21-32); CHLORIDE 107 MMOL/L (98-107); CREATININE 0.7 MG/DL (0.55-1.30); POTASSIUM 4.1 MMOL/L (3.5-5.1); SODIUM 138 MMOL/L (136-145)
--- NOTE | 2019-01-11 07:13 | NUR ---
HAND-OFF: Report given to CARIE Aguirre. Patient is in stable condition. MD Aceves notified of elevated WBCs from AM CBC labs. No c/o nausea, cramping, or bloating during the PM shift. Tolerating APPLE PACKING HEADER dilaudid.
[2019-01-11] MEDS: PCA shift volume MISC SCH ×2 (07:16→19:00)
--- NOTE | 2019-01-11 07:21 | NUR ---
NURSE NOTES: Pt awake is at bedside. Plan of care to include pain management, monitoring of intake , and output
[2019-01-11] MEDS: D5 1/4NS w/KCl 20mEq 1,000 ML IV SCH ×2 (09:04→17:58)
--- NOTE | 2019-01-11 09:45 | NUR ---
NURSE NOTES: Pain was initially 4/10 pain increased as she returned to bed to separate locations rectum, and abdomen
--- NOTE | 2019-01-11 09:49 | NUR ---
increased to 08/30 Addendum: 01/11/19 at 1044 by Carla Renee RN will reassess pain level. Pt verbalized pain after ambulating down hallway, when returned to bed could not get comfortable.
--- NOTE | 2019-01-11 10:57 | General Progress Note ---
Progress Note Progress Note AVSS Comfortable with Dilaudid LEGAL ADMINISTRATOR. Ambulated already Chest clear Cor reg rhythm Abdomen soft, mildly distended, incision clean, stoma pink 12 hrs overnight: urine 1650 BCIR ileo neg - small amount enteric fluid WBC 15,300 Hgb 11.2 BMP-wnl Ferritin 31 Imp. Ileus Plan: NPO, continuous drainage of Canseco pouch; continue colindres f/u labs with iron/B12/folic acid Jose Aceves MD Jan 11, 2019 10:57
[2019-01-11] MEDS ORDERED: Naloxone 0.4mg/ml Inj IVP PRN (11:00)
[2019-01-11] MEDS ORDERED: DiphenhydrAMINE 50mg/ml Inj IVP PRN (11:00)
[2019-01-11] MEDS ORDERED: Rate Change PCA 1 Each MISC PRN (11:00)
[2019-01-11] MEDS ORDERED: PCA HYDROmorphone 1mg/ml 30 ML IV PRN (11:00)
--- NOTE | 2019-01-11 11:49 | NUR ---
NURSE NOTES: Pt is currently comfortable. Provided with antibiotic therapy at this time denies nausea /vomiting. No noted dermatological note or reported. Call light is in reach. SCD on and functioning. IS is at bedside, instructions provided. Current plan will be followed
--- NOTE | 2019-01-11 14:31 | NUR ---
*-* INSURANCE *-* ALL CLINICALS AND REVIEWS HAVE BEEN FAXED TO: AYLEEN TAYLOR ASSIGNED PLS FAX CLINICALS TO [phone]
--- NOTE | 2019-01-11 15:23 | 48 Hour Post Anesthesia Eval ---
Post Anesthesia Evaluation Procedure: continent intestinal reservoir repair Date of Evaluation: Jan 11, 2019 Time of Evaluation: 15:22 Blood Pressure Systolic: 102 0: 56 Pulse Rate: 74 Respiratory Rate: 20 Temperature (Fahrenheit): 97.6 O2 Sat by Pulse Oximetry: 98 Airway: patent Nausea: No Vomiting: No Pain Intensity: 3 Hydration Status: adequate Cardiopulmonary Status: stable Mental Status/LOC: patient returned to baseline Follow-up Care/Observations: n/a Post-Anesthesia Complications: none Follow-up care needed: N/A Valentin Whitley MD Jan 11, 2019 15:23
--- NOTE | 2019-01-11 15:49 | NUR ---
NURSE NOTES: Zofran given for nausea , pt denies feeling a sensation of fullness or bloating. Informed of importance of letting me know if nausea is unrelieved, So Dr Aceves could be contacted immediately. Verbalized understanding, ice chips given do to dry mouth, educated on importance to only eat the ice chips ,and if the ice was to melt not to drink the water. Pt repositioned in bed, legs elevated and pillow placed under small of back. Call light in reach. Pt walked full hallway prior to returning to bed walking 3 separate times
--- NOTE | 2019-01-11 17:21 | Cardiology Report ---
APPROVED REPORT EKG Measurement Heart [id number] NM [id number] Normal sinus rhythm Normal ECG
--- NOTE | 2019-01-11 18:21 | NUR ---
NURSE NOTES: Perineal bandages changed, presence of moderate serous sanguineus drainage . Pt experienced some discomfort flinching while gauze was removed. States she is reluctant to use PALEOBOTANIST pump due to sensation of nausea and drowsiness. " I do not like how it makes me feel, I am in pain 4/10 but I feel drowsy afterwards.
--- NOTE | 2019-01-11 20:02 | NUR ---
HAND-OFF: Report given to Alma made aware that bandage, was changed, Pt true ileostomy output was 10 cc with flush of 80cc green in color urine output 1700 remains npo . Complained of abdominal cramping ativan offered and refused stated she will take it later in evening
[2019-01-11] MEDS: LORazepam 1mg tab SL PRN (20:19)
[2019-01-12] VITALS (9 sets, daily range): BP systolic 91–102; BP diastolic 54–62
--- NOTE | 2019-01-12 00:24 | NUR ---
NURSE NOTE: Pt is A/Ox4 with stable VS. Her is at the bedside. Orders reviewed, physical assessment completed. Pt states that her pain is minimal, 3/10. Abdominal bandages are clean, dry, and intact. Ileo and Malagon catheter are intact. PICC line dressing is clean, dry, and intact. Call trejo is within reach, will continue to monitor.
[2019-01-12] MEDS: D5 1/4NS w/KCl 20mEq 1,000 ML IV SCH ×2 (03:53→13:34)
[2019-01-12] MEDS: Ampicillin/Sulbactam Sod 3 GM in NS 110 ML IV SCH ×3 (05:47→18:16)
--- NOTE | 2019-01-12 06:25 | NUR ---
NURSE NOTE: Pt refused filing writer to do her posterior dressing. She requested for Dr. Aceves to do the dressing change this AM.
[2019-01-12 06:43] LABS: EOSINOPHILS % (AUTO) 9.5 % (0.0-3.0); HEMATOCRIT 33.5 % (37.0-47.0); HEMOGLOBIN 10.7 G/DL (12.0-16.0); LYMPHOCYTES % (AUTO) 23.9 % (20.0-45.0); MEAN CORPUSCULAR VOLUME 80 FL (80-99); NEUTROPHILS % (AUTO) 55.7 % (45.0-75.0); PLATELET COUNT 330 K/UL (150-450); RED BLOOD COUNT 4.21 M/UL (4.20-5.40); RED CELL DISTRIBUTION WIDTH 13.7 % (11.6-14.8); WHITE BLOOD COUNT 11.7 K/UL (4.8-10.8)
[2019-01-12] MEDS: PCA shift volume MISC SCH ×2 (07:06→19:14)
--- NOTE | 2019-01-12 07:23 | NUR ---
HAND-OFF: Report given to Cara.
[2019-01-12 07:34] LABS: ANION GAP 2 mmol/L (5-15); BLOOD UREA NITROGEN 3 mg/dL (7-18); CALCIUM 7.8 MG/DL (8.5-10.1); CARBON DIOXIDE 31 MMOL/L (21-32); CHLORIDE 107 MMOL/L (98-107); CREATININE 0.7 MG/DL (0.55-1.30); POTASSIUM 3.7 MMOL/L (3.5-5.1); SODIUM 140 MMOL/L (136-145)
--- NOTE | 2019-01-12 07:38 | NUR ---
NURSE NOTES: Current plan will be followed to include pain management, and monitoring of intake and output. Pt remains NPO
--- NOTE | 2019-01-12 08:12 | NUR ---
CASE MANAGEMENT:REVIEW 01/11/19 SI:DARRIAN CONTINENT ILEOSTOMY POUCH ENDOSCOPY 98.0 64 14 95/57 98% ON RA WBC 15.3 BUN 4 CA+ 8.3 IS: IV CHIROPRACTIC PHYSICIAN IV FLAGYL @6HR IV ZOSYN @HR IV DEXTROSE @100ML/HR LAMICTAL PO QHS IV TORADOL Q6HR/PRN : TO MED/SURG POST OP 3 [facility] CASE MANAGEMENT:REVIEW 01/12/19 SI:DARRIAN CONTINENT ILEOSTOMY POUCH ENDOSCOPY 98.5 90 16 91/59 97% ON RA H/H 10.7/33.5 BUN 3 CA+ 7.8 IS: IV CHIROPRACTIC PHYSICIAN IV FLAGYL @6HR IV ZOSYN @HR IV DEXTROSE @100ML/HR LAMICTAL PO QHS IV TORADOL Q6HR/PRN : TO MED/SURG POST OP 3 [facility]
[2019-01-12 08:30] LABS: IRON 14 ug/dL (50-175)
[2019-01-12] MEDS ORDERED: Naloxone 0.4mg/ml Inj IVP PRN (09:48)
[2019-01-12] MEDS ORDERED: Vitamin B12 1000mcg/ml Inj IM SCH (10:00)
[2019-01-12] MEDS ORDERED: Rate Change PCA 1 Each MISC PRN (10:00)
--- NOTE | 2019-01-12 10:23 | General Progress Note ---
Progress Note Progress Note AVSS Ambulated Abdomen soft, mild distention, incision clean, stoma pink Urine 3150 BCIR ileo 70 enteric WBC down 11,700 Hgb down 10.7 Iron 14 Ferritin 31 B12 489 Folic acid 14.1 Imp. Ileus Severe pre-admission iron deficiency Plan: NPO, continue Malagon, SALES CENTER MANAGER + toradol prn Venofer IV B12 IM x 1 f/u labs Jose Aceves MD Jan 12, 2019 10:23
[2019-01-12] MEDS ORDERED: PCA HYDROmorphone 1mg/ml 30 ML IV PRN ×2 (11:00)
--- NOTE | 2019-01-12 13:31 | NUR ---
RD ASSESSMENT & RECOMMENDATIONS SEE CARE ACTIVITY FOR COMPLETE ASSESSMENT DAILY ESTIMATED NEEDS: Needs based on Surgery/ 56.7kg abw 25-30 kcals/kg 6742-6158 total kcals 1-2 g protein/kg 57-114 g total protein 25-30 mL/kg 4618-9208 total fluid mLs NUTRITION DIAGNOSIS: Altered GI function R/T h/o UC, admitted w/ malfunctioning Canseco continent intestinal reservoir continent ileostomy with severe difficulty with intubation as evidenced by s/p ex lap, revision of Canseco Pouch partial valve dessusception, w/ post op ileus, NPO. CURRENT DIET:NPO PO DIET RECOMMENDATIONS: DIET PER MD ADDITIONAL RECOMMENDATIONS: * Weekly standing weight monitoring * Monitor NPO status -> ability to start oral diet vs need for TPN * Monitor lytes, replete as needed
[2019-01-12] MEDS: Ketorolac 30mg Inj IV PRN (13:35)
[2019-01-12] MEDS ORDERED: NS Irrig 1000ml ONE (13:42)
--- NOTE | 2019-01-12 14:02 | NUR ---
*-* INSURANCE *-* ALL CLINICALS AND REVIEWS HAVE BEEN FAXED TO: AYLEEN TAYLOR ASSIGNED PLS FAX CLINICALS TO [phone]
--- NOTE | 2019-01-12 16:00 | NUR ---
NURSE NOTES: Pt ambulated in hallway x3 , states she feels better , requires minimal moderate assistance to return to bed. Toradol given x i no further complaints of pain at this time. Assisted with repositioning. No verbalizations of n/v
--- NOTE | 2019-01-12 19:36 | NUR ---
NURSE NOTES: Dressing to perineal area less drainage than yesterday serous in color, more comfortable to dressing change. Ileostomy output is progressing color is darker and consistency is not longer translucent. Remains not have an odor. Ice chips provided. IS encouraged. No noted side effects related to antibiotic use. Pt is inquiring about when she can eat informed her that Dr Aceves determines that by evaluating output ratio, and if he feels intake will be tolerated. True Ileostomy Output 220 Urine Output 2220
--- NOTE | 2019-01-12 19:42 | NUR ---
HAND-OFF: Report given to Alma DARNELL made cabral that pt had to be repostioned picc line would not fuction with pt laying on her left side Toradol x1 Zofran x1 True Ileostomy output 220 flushed with 80cc Urine Output 2220 Ambulated x 3 Perineal Dressing Changed .
[2019-01-12] MEDS: Iron Sucrose 100 MG in NS 55 ML IV SCH (20:23)
[2019-01-12] MEDS: Dyna-Hex 2% Top Sol 2oz TOPIC SCH (21:52)
--- NOTE | 2019-01-12 22:33 | NUR ---
NURSE NOTE: PICC line was not functioning. After multiple attempts of repositioning, flushing, and deep breathing Dr. Aceves was paged at 2100 for Cathflo order. Pt complained of nausea, Zofran given x1. Pt expressed that the INCOME TAX ADVISOR bolus makes her feel "too sleepy". Pt reassured that she can request Toradol PRN. Pt score is 3/10. Will continue to monitor.
[2019-01-12] MEDS ORDERED: Cathflo Alteplase 2mg Inj INJ SCH (23:00)
--- NOTE | 2019-01-12 23:10 | NUR ---
NURSE NOTE: Cathflo usage was successful, the PICC line is functional. Both lumens are patent and blood return is present. IV fluids resumed.
[2019-01-13] VITALS (8 sets, daily range): BP systolic 88–102; BP diastolic 56–65
[2019-01-13] MEDS: D5 1/4NS w/KCl 20mEq 1,000 ML IV SCH (00:25)
[2019-01-13] MEDS: Ampicillin/Sulbactam Sod 3 GM in NS 110 ML IV SCH ×5 (00:25→23:59)
[2019-01-13] MEDS: Ketorolac 30mg Inj IV PRN ×4 (00:26→20:30)
[2019-01-13] MEDS: PCA shift volume MISC SCH ×2 (07:00→19:00)
[2019-01-13 07:03] LABS: ALANINE AMINOTRANSFERASE 17 U/L (12-78); ALBUMIN 2.5 G/DL (3.4-5.0); ALBUMIN/GLOBULIN RATIO 0.8 (1.0-2.7); ALKALINE PHOSPHATASE 39 U/L (46-116); ANION GAP 9 mmol/L (5-15); ASPARTATE AMINO TRANSFERASE 12 U/L (15-37); BILIRUBIN,TOTAL 0.4 MG/DL (0.2-1.0); BLOOD UREA NITROGEN 3 mg/dL (7-18); CALCIUM 7.2 MG/DL (8.5-10.1); CARBON DIOXIDE 24 MMOL/L (21-32); CHLORIDE 111 MMOL/L (98-107); CREATININE 0.5 MG/DL (0.55-1.30); POTASSIUM 3.3 MMOL/L (3.5-5.1); SODIUM 144 MMOL/L (136-145)
[2019-01-13 07:09] LABS: BASOPHILS % (AUTO) 0.8 % (0.0-2.0); EOSINOPHILS % (AUTO) 11.3 % (0.0-3.0); HEMATOCRIT 29.3 % (37.0-47.0); HEMOGLOBIN 9.9 G/DL (12.0-16.0); LYMPHOCYTES % (AUTO) 16.1 % (20.0-45.0); MEAN CORPUSCULAR VOLUME 78 FL (80-99); MONOCYTES % (AUTO) 10.3 % (1.0-10.0); NEUTROPHILS % (AUTO) 61.5 % (45.0-75.0); PLATELET COUNT 281 K/UL (150-450); RED BLOOD COUNT 3.75 M/UL (4.20-5.40); WHITE BLOOD COUNT 10.2 K/UL (4.8-10.8)
--- NOTE | 2019-01-13 07:27 | NUR ---
HAND-OFF: Report given to Carla.
[2019-01-13] MEDS ORDERED: Naloxone 0.4mg/ml Inj IVP PRN (09:06)
[2019-01-13] MEDS ORDERED: Rate Change PCA 1 Each MISC PRN (09:15)
--- NOTE | 2019-01-13 09:20 | General Progress Note ---
Progress Note Progress Note AVSS Feeling well. Need for her albuterol inhaler prn asthma. Also takes urogesic blue for interstitial cystitis - will resume after colindres removed Abdomen soft, incision clean. Pilonidal and perineal sinus tracts clean Urine 3570 BCIR ileo 400 WBC down 10.200 Hgb down 9.9 - on Venofer K 3.3 Imp. Ileus resolving Plan; continue npo, indwelling catheter to Vesna Price Venofer f/u labs Jose Aceves MD Jan 13, 2019 09:20
--- NOTE | 2019-01-13 09:28 | NUR ---
NURSE NOTES: RT called at 1569 for stat orders for nebulizer, per Dr Aceves States s she feels as if she is having an asthma flare up. Current plan to include pain management, monitoring of intake and output. Urine clear yellow no signs of sediment or odor. Ileostomy output has increased consistency is thicker in comparison to yesterday. Able to flush catheter freely rapid return of ileostomy output
--- NOTE | 2019-01-13 09:28 | NUR ---
RESPIRATORY NOTE: No respiratory medication ordered. Cara DARNELL aware. Waiting for orders.
[2019-01-13] MEDS ORDERED: Albuterol/Ipratropium 3ml neb HHN ONE (09:45)
[2019-01-13] MEDS ORDERED: Albuterol/Ipratropium 3ml neb HHN PRN (09:45)
[2019-01-13] MEDS ORDERED: Tubing IV Secondary IV ONE (09:59)
[2019-01-13] MEDS ORDERED: NS Irrig 1000ml ONE (09:59)
[2019-01-13] MEDS: D5 1/2NS w/KCl 40meq 1000ml 1,000 ML IV SCH ×2 (10:36→22:30)
[2019-01-13] MEDS ORDERED: PCA HYDROmorphone 1mg/ml 30 ML IV PRN (11:00)
--- NOTE | 2019-01-13 14:52 | NUR ---
NURSE NOTES: Pt urine inocencio , darker than output from start of shift, will follow up with Dr Brennen Aceves Pt stated " I am starving, when is he going to let me eat, conversation had in am with Dr Aceves reinforced 1-[address] Aceves.
[2019-01-13 17:04] LABS: APPEARANCE,URINE CLEAR; BILIRUBIN, URINE NEGATIVE (NEGATIVE); GLUCOSE, URINE (UA) NEGATIVE (NEGATIVE); KETONES,URINE 3+ (NEGATIVE); LEUKOCYTE ESTERASE ,URINE 2+ (NEGATIVE); NITRITE,URINE NEGATIVE (NEGATIVE); PH,URINE 7 (4.5-8.0); PROTEIN,URINE NEGATIVE (NEGATIVE); UROBILINOGEN,URINE NORMAL MG/DL (0.0-1.0)
[2019-01-13 17:06] LABS: COLOR,URINE YELLOW
--- NOTE | 2019-01-13 17:12 | NUR ---
NURSE NOTES: Will reassess v/s due to low results pt baseline diastolic blood pressure at times recorded in the 90 range
--- NOTE | 2019-01-13 17:36 | NUR ---
CASE MANAGEMENT: REVIEW SI: MALFUNCTIONING COLMENARES CONTINENT ILEOSTOMY WITH INABILITY TO INTUBATE COLMENARES CONTINENT ILEOSTOMY POUCH ENDOSCOPY 01/10 T 98.4 HR 79 RR 15 BP 88/62 SAT 97% ROOM AIR H/H 9.9/29.3 K 3.3 IS: STAFF AIR TACTICAL OFFICER DILAUDID D5 1/2 NS w/KCl IVF @ 100ML/HR VENOFER IV QHS FLAGYL IV Q6HR UNASYN IV Q6HR NPO MED/SURG STATUS DCP: PATIENT IS FROM HOME
--- NOTE | 2019-01-13 20:17 | NUR ---
NURSE NOTES: Pt urine taken to lab. Pt has not used WIRE STRIPPER all shift . Toradol is q6 hours , will follow up with Dr Aceves. Bandages to abdomen changed, due to gauze falling out while walking. Very minimal drainage, around stoma. Urine Remains Emily In Color No Sediment True Ileostomy Output 370 thin gel like consistency no odor , dark brown , rust, in color PICC Line required trouble shoot x 1 , due to positioning of pt arm Refused rectal bandages to be changed
--- NOTE | 2019-01-13 20:23 | NUR ---
HAND-OFF: Report given to Madison DARNELL.
[2019-01-13] MEDS: Iron Sucrose 100 MG in NS 55 ML IV SCH (20:29)
[2019-01-13] MEDS: Dyna-Hex 2% Top Sol 2oz TOPIC SCH (20:41)
--- NOTE | 2019-01-13 20:52 | NUR ---
NURSE NOTES: Dr Aceves returned call gave instruction to encourage CREDENTIALING ASSISTANT Toradol could not be increased
--- NOTE | 2019-01-13 23:24 | NUR ---
NURSES NOTE: Met pt in bed, A/OX4, able to let needs be known. Pt shows no outward s/s of distress. Breathing pattern is even and unlabored on RA. PICC line in L arm is clean, intact, with no symptoms of infection. Malagon is draining appropriately. Urine is dark in color. Urine sample collected and awaiting results. Ileo is flushed Q3H, patent, draining appropriately. Pt on LOG ROPER Dilaudid however does not prefer to use pump as she feels too sedated. Pt made aware Dr would like her to use pump and Toradol order would not be increased. All due meds given. Dressing at abdomen and rectal area changed. Patient will continue to be monitored. Bed at lowest level. Call light within reach.
[2019-01-14] VITALS: BP 94/60
[2019-01-14 04:00] VITALS: BP 90/60
[2019-01-14] MEDS: D5 1/2NS w/KCl 40meq 1000ml 1,000 ML IV SCH ×3 (05:15→22:53)
[2019-01-14] MEDS: Ketorolac 30mg Inj IV PRN ×3 (05:29→20:07)
[2019-01-14] MEDS: Ampicillin/Sulbactam Sod 3 GM in NS 110 ML IV SCH ×4 (05:29→19:33)
[2019-01-14 05:47] LABS: BASOPHILS % (AUTO) 1.2 % (0.0-2.0); EOSINOPHILS % (AUTO) 13.2 % (0.0-3.0); HEMOGLOBIN 8.8 G/DL (12.0-16.0); LYMPHOCYTES % (AUTO) 15.2 % (20.0-45.0); MEAN CORPUSCULAR VOLUME 84 FL (80-99); MONOCYTES % (AUTO) 6.9 % (1.0-10.0); NEUTROPHILS % (AUTO) 63.7 % (45.0-75.0); PLATELET COUNT 278 K/UL (150-450); RED BLOOD COUNT 3.45 M/UL (4.20-5.40); RED CELL DISTRIBUTION WIDTH 14.1 % (11.6-14.8); WHITE BLOOD COUNT 9.5 K/UL (4.8-10.8)
[2019-01-14] MEDS: PCA shift volume MISC SCH (07:00)
--- NOTE | 2019-01-14 07:45 | NUR ---
HAND OFF: Report given to CARIE FORD Patient left in stable condition. Endorsed f/u with labs due to numbers being skewed from PICC line draw. A traditional lab draw to be made by lab department for successful lab numbers. MACHINIST/MACHINE BUILDER pump not used by pt entire NOC shift.
[2019-01-14 08:00] VITALS: BP 109/65
[2019-01-14 08:13] LABS: ALANINE AMINOTRANSFERASE 24 U/L (12-78); ALBUMIN 3.3 G/DL (3.4-5.0); ALBUMIN/GLOBULIN RATIO 0.8 (1.0-2.7); ALKALINE PHOSPHATASE 50 U/L (46-116); ANION GAP 9 mmol/L (5-15); ASPARTATE AMINO TRANSFERASE 17 U/L (15-37); BILIRUBIN,TOTAL 0.5 MG/DL (0.2-1.0); BLOOD UREA NITROGEN 3 mg/dL (7-18); CALCIUM 8.8 MG/DL (8.5-10.1); CARBON DIOXIDE 26 MMOL/L (21-32); CHLORIDE 107 MMOL/L (98-107); CREATININE 0.7 MG/DL (0.55-1.30); POTASSIUM 4.4 MMOL/L (3.5-5.1); SODIUM 142 MMOL/L (136-145)
[2019-01-14] MEDS ORDERED: Rate Change PCA 1 Each MISC PRN (09:30)
[2019-01-14] MEDS ORDERED: Naloxone 0.4mg/ml Inj IVP PRN (09:30)
[2019-01-14] MEDS ORDERED: PCA HYDROmorphone 1mg/ml 30 ML IV PRN (09:33)
--- NOTE | 2019-01-14 09:44 | General Progress Note ---
Progress Note Progress Note AVSS Ambulating often. Pain controlled with Toradol Abdomen soft, incision clean Urine 1825 BCIR ileo 940 WBC 9500 Hgb down j8.8 albumin 3.3 U/A - ? UTI Imp: Resolving ileus Plan: continue NPO Urine C&S and d/c Malagon Resume her urogesic blue for interstitial cystitis prn f/u labs - continue Jose Myrick MD Jan 14, 2019 09:44
[2019-01-14 11:51] VITALS: BP 103/64
[2019-01-14] MEDS: [UNRECOGNIZED DRUG - MIXTURE] ORAL PRN (12:08)
[2019-01-14 15:50] VITALS: BP 95/62
[2019-01-14] MEDS ORDERED: PCA shift volume MISC SCH (19:00)
--- NOTE | 2019-01-14 19:45 | NUR ---
HAND-OFF: Report given to CARIE Gunderson.
[2019-01-14 20:00] VITALS: BP 112/64
--- NOTE | 2019-01-14 20:00 | NUR ---
NURSE NOTES: Received report from AM RN Ester Eastman. Patient lying in bed with at bedside. Patient is alert and oriented and lethargic. Ileostomy is draining green fluid to collection drainage bag. AM RN emptied 600cc of fluid at 1930. Patient states they are voiding fine via the bedside commode. Patient c/o abdominal pain 5/10. Medication administered per eMAR. Abdominal dressing is c/d/i. STEVEN PICC is c/d/i and asymptomatic running fluids at 100ml/hr. Call light within reach will continue plan of care.
[2019-01-14] MEDS: Dyna-Hex 2% Top Sol 2oz TOPIC SCH (20:06)
[2019-01-14] MEDS: NS IV SCH ×2 (20:59→22:54)
[2019-01-14] MEDS: IRON SUCROSE IV SCH ×2 (20:59→22:54)
--- NOTE | 2019-01-14 22:00 | NUR ---
NURSE NOTES: Patient c/o strong nausea not relieved by Zofran. MD Aceves contacted for orders. New medication administered via eMAR.
[2019-01-14] MEDS: LORazepam 1mg tab SL PRN (22:22)
--- NOTE | 2019-01-14 22:22 | NUR ---
NURSE NOTES: Patient ambulating in hallways with , steady gait. C/o of "jitteriness" and restlessness. VSS checked and stable. Ativan PRN given per eMAR. Will continue to monitor.
[2019-01-15] VITALS: BP 113/66
[2019-01-15] MEDS: Ampicillin/Sulbactam Sod 3 GM in NS 110 ML IV SCH ×2 (00:07→05:21)
[2019-01-15 04:00] VITALS: BP 95/69
[2019-01-15 06:28] LABS: EOSINOPHILS % (AUTO) 12.2 % (0.0-3.0); HEMOGLOBIN 10.5 G/DL (12.0-16.0); LYMPHOCYTES % (AUTO) 17.3 % (20.0-45.0); MEAN CORPUSCULAR VOLUME 79 FL (80-99); MONOCYTES % (AUTO) 7.6 % (1.0-10.0); PLATELET COUNT 376 K/UL (150-450); RED BLOOD COUNT 4.03 M/UL (4.20-5.40); RED CELL DISTRIBUTION WIDTH 13.1 % (11.6-14.8); WHITE BLOOD COUNT 10.2 K/UL (4.8-10.8)
[2019-01-15 06:48] LABS: ANION GAP 10 mmol/L (5-15); BLOOD UREA NITROGEN 3 mg/dL (7-18); CALCIUM 8.5 MG/DL (8.5-10.1); CARBON DIOXIDE 24 MMOL/L (21-32); CHLORIDE 109 MMOL/L (98-107); CREATININE 0.6 MG/DL (0.55-1.30); POTASSIUM 4.1 MMOL/L (3.5-5.1); SODIUM 143 MMOL/L (136-145)
--- NOTE | 2019-01-15 07:42 | NUR ---
HAND-OFF: Report given to CARIE Aguirre. Patient resting in bed in stable condition.
[2019-01-15 08:00] VITALS: BP 149/75
--- NOTE | 2019-01-15 08:03 | NUR ---
NURSE NOTES: FC is no longer present, states she is not having difficulty urinating. Continues NPO, with ileostomy flush at q3. Current paln will be followed to include , monitoring of I and O
--- NOTE | 2019-01-15 08:42 | General Progress Note ---
Progress Note Progress Note AVSS Had nausea last night but resolved. Abdomen soft, flat, healing nicely Urine 2049 (voiding well) BCIR ileo 740 Hgb up 10.5 Imp. Improved Plan: clear liquid diet d/c antibiotics Jose Aceves MD Jan 15, 2019 08:42
[2019-01-15] MEDS ORDERED: LORazepam 1mg tab SL PRN ×2 (08:45→10:00)
[2019-01-15] MEDS ORDERED: Ketorolac 30mg Inj IV PRN (09:30)
[2019-01-15] MEDS: D5 1/2NS w/KCl 40meq 1000ml 1,000 ML IV SCH ×2 (11:12→21:07)
[2019-01-15 12:00] VITALS: BP 100/69
--- NOTE | 2019-01-15 12:17 | NUR ---
CASE MANAGEMENT: REVIEW 01/15/19 SI: POD# 5 COLMENARES CONTINENT ILEOSTOMY POUCH ENDOSCOPY 97.8 83 18 95/69 97% ON RA BUN 3 H/H 10.5/32. IS: IVF DEXTROSE @100ML/HR IV FE SUCROSE @HS X5 BAGS : 3E MED/SURG UNIT DCP: PATIENT IS FROM HOME PLAN: START ON CLEAR Addendum: 01/15/19 at 1233 by HI GARCIA LVN CASE MANAGEMENT: REVIEW 01/14/19 SI: POD# 4 COLMENARES CONTINENT ILEOSTOMY POUCH ENDOSCOPY 98.5 88 19 109/65 98% ON RA BUN 3 H/H 8.8/29.0 IS: IVF DEXTROSE @100ML/HR IV FE SUCROSE @HS X5 BAGS IV CORK PAINTER AND GRADER BID IV METRONIDAZOLE Q6HR IV UNASYN 26HR : 3E MED/SURG UNIT DCP: PATIENT IS FROM HOME PLAN: START ON CLEAR IN AM MARY RICE
--- NOTE | 2019-01-15 13:20 | NUR ---
NURSE NOTES: Pt tolerated breakfast without complaints of nausea. Lunch served stated she was still full. popsicle and apple juice consumed . Given Zofran for verbalizations of nausea states it is unrelated to meals
--- NOTE | 2019-01-15 15:35 | NUR ---
NURSE NOTES: Pt ambulated in hallway several times this shift. Ranulfoan given IVP for concerns with nausea. Verbalized effectiveness. States she does not to take COMPAZINE .per pt could not handle her bx after t was administered.
--- NOTE | 2019-01-15 15:36 | NUR ---
RD ASSESSMENT & RECOMMENDATIONS SEE CARE ACTIVITY FOR COMPLETE ASSESSMENT DAILY ESTIMATED NEEDS: Needs based on Surgery/ 56.7kg abw 25-30 kcals/kg 1669-9623 total kcals 1-2 g protein/kg 57-114 g total protein 25-30 mL/kg 0922-0289 total fluid mLs NUTRITION DIAGNOSIS: Altered GI function R/T h/o UC, admitted w/ malfunctioning Canseco continent intestinal reservoir continent ileostomy with severe difficulty with intubation as evidenced by s/p ex lap, revision of Canseco Pouch partial valve dessusception, diet now advanced to CLD. CURRENT DIET:CLEAR LIQUID DIET PO DIET RECOMMENDATIONS: Advance diet per MD -> BCIR LOW RESIDUE ADDITIONAL RECOMMENDATIONS: * Weekly standing weight monitoring * Diet advancement per MD * Monitor PO acceptance and tolerance * Monitor lytes, replete as needed
--- NOTE | 2019-01-15 15:40 | NUR ---
*-* INSURANCE *-* ALL CLINICALS AND REVIEWS HAVE BEEN FAXED TO: AYLEEN TAYLOR ASSIGNED PLS FAX CLINICALS TO [phone]
[2019-01-15 16:00] VITALS: BP 99/63
--- NOTE | 2019-01-15 19:44 | NUR ---
NURSE NOTES: Pt reach 100c cc at end of shift. Took over one hour to eat each meal, tolerated . Verbalized nausea x1. Oncoming nurse made aware to decrease fluids to 50cc/hr. Pt ambulated several times in hallway. Urine output 1800 dark yellow in color. True Ileostomy output 570, flushed with 80cc. Color sandra brown gel like consistency , but flowing well, no odor. Bandages changed by charge nurse. Complained pain 4/ yet stated she wanted the Toradol later. Will continue to be monitored , for possible GI distress related to resumption of meal intake. Pt is aware not to throw away urine for urine to be monitored. Current plan of care will be followed
--- NOTE | 2019-01-15 19:52 | NUR ---
HAND-OFF: Report given to Chavez DARNELL.
[2019-01-15 20:00] VITALS: BP 101/71
--- NOTE | 2019-01-15 20:30 | NUR ---
NURSE NOTES: Receive report from CARIE Aguirre. Patient is ambulating in hallways with at side. Tolerating well with no c/o pain or SOB on room air. Feeling slightly nauseous, given Zofran x1. ileostomy draining light brown liquid to gravity collection bag. Flushed 20cc of NS per order. Perineal dressing replaced and abdominal dressing reinforced. Surgical site intact. Drinking liquids and tolerating well. Patient urinating without complication. Will continue plan of care.
[2019-01-15] MEDS: Dyna-Hex 2% Top Sol 2oz TOPIC SCH (21:06)
[2019-01-15] MEDS: NS IV SCH (21:07)
[2019-01-15] MEDS: IRON SUCROSE IV SCH (21:07)
[2019-01-16] VITALS: BP 99/73
[2019-01-16] MEDS ORDERED: D5 1/2NS w/KCl 40meq 1000ml 1,000 ML IV SCH (00:15)
[2019-01-16 04:00] VITALS: BP 115/75
[2019-01-16 05:32] LABS: BASOPHILS % (AUTO) 0.9 % (0.0-2.0); EOSINOPHILS % (AUTO) 11.1 % (0.0-3.0); HEMATOCRIT 34.8 % (37.0-47.0); HEMOGLOBIN 11.3 G/DL (12.0-16.0); LYMPHOCYTES % (AUTO) 19.7 % (20.0-45.0); MEAN CORPUSCULAR VOLUME 80 FL (80-99); MONOCYTES % (AUTO) 9.8 % (1.0-10.0); NEUTROPHILS % (AUTO) 58.5 % (45.0-75.0); PLATELET COUNT 428 K/UL (150-450); RED BLOOD COUNT 4.38 M/UL (4.20-5.40); RED CELL DISTRIBUTION WIDTH 13.2 % (11.6-14.8); WHITE BLOOD COUNT 10.5 K/UL (4.8-10.8)
[2019-01-16 05:33] LABS: ANION GAP 9 mmol/L (5-15); BLOOD UREA NITROGEN 2 mg/dL (7-18); CALCIUM 8.9 MG/DL (8.5-10.1); CARBON DIOXIDE 25 MMOL/L (21-32); CHLORIDE 107 MMOL/L (98-107); CREATININE 0.6 MG/DL (0.55-1.30); POTASSIUM 4.6 MMOL/L (3.5-5.1); SODIUM 141 MMOL/L (136-145)
--- NOTE | 2019-01-16 07:30 | NUR ---
NURSE NOTES: Patient is up in room awake and able to verbalize needs. Stable. Denies severe pain or SOB. Patient encouraged to use call light for assistance, verbalized understanding. Patient's PICC is running IVF as ordered. Patient's ileo is draining to bag as ordered, will monitor output. Plan of care discussed with patient. Will continue to monitor.
--- NOTE | 2019-01-16 07:54 | NUR ---
HAND-OFF: Report given to CARIE Sanders. Patient in stable condition.
[2019-01-16 08:00] VITALS: BP 114/73
--- NOTE | 2019-01-16 09:00 | NUR ---
NURSE NOTES: Patient ambulated around hallway. Linens and towels provided. Bed changed. Will continue to monitor.
--- NOTE | 2019-01-16 11:34 | NUR ---
*-* INSURANCE *-* UPDATED CLINICALS AND REVIEWS HAVE BEEN FAXED TO: AYLEEN TAYLOR ASSIGNED PLS FAX CLINICALS TO [phone]
--- NOTE | 2019-01-16 11:47 | NUR ---
NURSE NOTES: D/C IV fluids as ordered. PICC flushed, patent, difficulty getting blood return. Dressing changed by surgeon. Will continue to monitor.
--- NOTE | 2019-01-16 11:51 | General Progress Note ---
Progress Note Progress Note AVSS Tolerated clear liquid diet well. Abdomen soft, flat, incision clean urine 3100 BCIR ileo 1140 WBC 15,300 Hgb 11.2 Platelets down 374,000 Urine C&S no growth so far Imp: Leukocytosis ? etiology Plan: full liquid diet blood C&S for any temp elevation f/u labs - may need CT scan abd+pelvis Maintain continuous drainage of Canseco Pouch Jose Aceves MD Jan 16, 2019 11:51
[2019-01-16 12:00] VITALS: BP 102/67
[2019-01-16] MEDS ORDERED: Albuterol/Ipratropium 3ml neb HHN PRN (12:00)
--- NOTE | 2019-01-16 12:43 | NUR ---
CASE MANAGEMENT: REVIEW 01/16/19 SI: POD# 6 COLMENARES CONTINENT ILEOSTOMY POUCH ENDOSCOPY 98.2 78 15 114/73 98% ON RA BUN 2 H/H 11.3/34.8. IS: IV FE SUCROSE @HS X3 BAGS LAMICTAL PO QHS : 3E MED/SURG UNIT DCP: PATIENT IS FROM HOME PLAN: START ON FULL LIQ DIET MAINTAIN CONT DRAINAGE OF COLMENARES POUCH
[2019-01-16] MEDS ORDERED: Fluconazole 150mg tab ORAL SCH (13:00)
[2019-01-16] MEDS: Nystatin Susp 500,000 units/5ml ORAL SCH ×3 (13:42→21:18)
[2019-01-16 16:00] VITALS: BP 119/77
--- NOTE | 2019-01-16 16:36 | NUR ---
NURSE NOTES: Spoke to to clarify lab order and new order received. Order read back and carried out.
--- NOTE | 2019-01-16 19:30 | NUR ---
HAND-OFF: Report given to Venus DARNELL. Patient is stable.
--- NOTE | 2019-01-16 19:38 | NUR ---
NURSES NOTE: Pt in bed, with by her side. A/O X4, communicative, able to express needs. No outward s/s of distress noted. Breathing pattern is even and unlabored on RA. Ileo is patent, draining via gravity to be flushed Q3H. Dressing, abdominal area, is dry, clean, intact. Patient denies pain at this moment. PICC line STEVEN hep locked. All due meds will be given. Patient will continue to be monitored. Bed at lowest level, call light within reach.
[2019-01-16 20:00] VITALS: BP 109/94
[2019-01-16] MEDS: Dyna-Hex 2% Top Sol 2oz TOPIC SCH (20:55)
[2019-01-16] MEDS: IRON SUCROSE IV SCH (21:18)
[2019-01-16] MEDS: NS IV SCH (21:18)
[2019-01-16] MEDS: Ketorolac 30mg Inj IV PRN (22:20)
[2019-01-17] VITALS: BP 104/62
[2019-01-17 04:00] VITALS: BP 98/55
[2019-01-17 05:23] LABS: BASOPHILS % (AUTO) 1.2 % (0.0-2.0); EOSINOPHILS % (AUTO) 10.7 % (0.0-3.0); HEMATOCRIT 35.7 % (37.0-47.0); HEMOGLOBIN 11.4 G/DL (12.0-16.0); LYMPHOCYTES % (AUTO) 19.1 % (20.0-45.0); MEAN CORPUSCULAR VOLUME 80 FL (80-99); MONOCYTES % (AUTO) 8.8 % (1.0-10.0); NEUTROPHILS % (AUTO) 60.2 % (45.0-75.0); PLATELET COUNT 446 K/UL (150-450); RED BLOOD COUNT 4.46 M/UL (4.20-5.40); RED CELL DISTRIBUTION WIDTH 13.5 % (11.6-14.8); WHITE BLOOD COUNT 11.3 K/UL (4.8-10.8)
[2019-01-17 06:20] LABS: ALANINE AMINOTRANSFERASE 24 U/L (12-78); ALBUMIN 3.3 G/DL (3.4-5.0); ALBUMIN/GLOBULIN RATIO 0.9 (1.0-2.7); ALKALINE PHOSPHATASE 45 U/L (46-116); ANION GAP 11 mmol/L (5-15); ASPARTATE AMINO TRANSFERASE 17 U/L (15-37); BILIRUBIN,TOTAL 0.4 MG/DL (0.2-1.0); BLOOD UREA NITROGEN 6 mg/dL (7-18); CARBON DIOXIDE 25 MMOL/L (21-32); CHLORIDE 105 MMOL/L (98-107); CREATININE 0.7 MG/DL (0.55-1.30); POTASSIUM 3.6 MMOL/L (3.5-5.1); SODIUM 141 MMOL/L (136-145)
--- NOTE | 2019-01-17 07:13 | NUR ---
HAND OFF: Report given to CARIE Ordaz. Pt left in stable condition. PICC line draw successful for AM labs. No temperature noted through out NOC shift. No complaints of catheter dislodgement. Collecting bag draining appropriately with no significant report of cramping/discomfort. Full liquid diet tolerated well thus far. Slight spike in WBC count from AM labs. Endorsed to CARIE Sanders.
--- NOTE | 2019-01-17 07:30 | NUR ---
NURSE NOTES: Patient is in bed awake and able to verbalize needs. Stable. Denies pain or SOB. Plan of care discussed with patient. Catheter in place, no c/o cramping or discomfort, will continue to monitor placement of catheter as well as output. Dressing is c/d/i. Patient's PICC is patent, dressing is c/d/i. Patient in bed in locked and lowest position with call light within reach. Will continue to monitor.
[2019-01-17 08:00] VITALS: BP 107/67
[2019-01-17] MEDS: [UNRECOGNIZED DRUG - MIXTURE] ORAL PRN (08:05)
[2019-01-17] MEDS: Nystatin Susp 500,000 units/5ml ORAL SCH ×4 (08:06→20:22)
--- NOTE | 2019-01-17 09:41 | NUR ---
*-* INSURANCE *-* UPDATED CLINICALS AND REVIEWS HAVE BEEN FAXED TO: [facility] ASSIGNED P[facility] FAX CLINICALS TO [phone]
--- NOTE | 2019-01-17 11:36 | NUR ---
CASE MANAGEMENT: REVIEW 01/17/19 SI: POD# 7 COLMENARES CONTINENT ILEOSTOMY POUCH ENDOSCOPY 97.7 81 20 107/67 98 % ON RA; FIO2 21 WBC 11.3 BUN 6 H/H 11.4/35.7 IS: IV TORADOL Q6/PRN IV ZOFRAN Q4/PRN LAMICTAL PO QHS NYSTATIN PO QID : 3E MED/SURG UNIT DCP: PATIENT IS FROM HOME PLAN: MAY NEED CT ABD/PEL MAINTAIN CONT DRAINAGE OF COLMENARES POUCH
[2019-01-17 12:00] VITALS: BP 97/63
--- NOTE | 2019-01-17 13:58 | NUR ---
RD ASSESSMENT & RECOMMENDATIONS SEE CARE ACTIVITY FOR COMPLETE ASSESSMENT DAILY ESTIMATED NEEDS: Needs based on Surgery/ 56.7kg abw 25-30 kcals/kg 3456-8675 total kcals 1-2 g protein/kg 57-114 g total protein 25-30 mL/kg 2131-2668 total fluid mLs NUTRITION DIAGNOSIS: Altered GI function R/T h/o UC, admitted w/ malfunctioning Canseco continent intestinal reservoir continent ileostomy with severe difficulty with intubation as evidenced by s/p ex lap, revision of Canseco Pouch partial valve dessusception, diet now advanced to FLD. CURRENT DIET:FULL LIQUID DIET PO DIET RECOMMENDATIONS: Advance diet per MD -> BCIR LOW RESIDUE ADDITIONAL RECOMMENDATIONS: * Weekly standing weight monitoring * Diet advancement per MD * Monitor PO acceptance and tolerance * Monitor lytes, replete as needed
--- NOTE | 2019-01-17 15:29 | General Progress Note ---
Progress Note Progress Note AVSS Tolerating full liquid diet Rash of left anterior chest ? irritation from gown Abdomen soft, healing nicely Urine 1800 BCIR ileo 1390 WBC 11,300 Hgb 11.4 urine C&S no growth Imp. Improving Plan: BCIR low residue diet f/u labs maintain indwelling catheter to Canseco pouch to continuous drainage Jose Aceves MD Jan 17, 2019 15:29
[2019-01-17] MEDS ORDERED: Hydrocortisone 1% Cr 15gm TOPIC PRN (15:30)
[2019-01-17 16:00] VITALS: BP 103/66
[2019-01-17] MEDS ORDERED: Tubing IV Secondary IV ONE (16:20)
[2019-01-17] MEDS ORDERED: NS 500ML ONE (16:20)
[2019-01-17] MEDS ORDERED: NS Irrig 1000ml ONE (16:20)
--- NOTE | 2019-01-17 19:20 | NUR ---
HAND-OFF: Report given to Leonieo RN. Patient is stable.
--- NOTE | 2019-01-17 19:20 | NUR ---
NURSE NOTES: Receive a report from CARIE Sanders. Round is done. Pt is awake and alert. No acute distress noted. Denies pain at this moment but will request if needed. Ileostomy is drained with natural gravity with dark greenish drainage. PICC lines are on H/L. No N/V noted. Call light within reach. Will continue to monitor.
[2019-01-17 20:00] VITALS: BP 106/68
--- NOTE | 2019-01-17 20:20 | NUR ---
NURSE NOTES: Request Zofran before Venofer running 15-20min in advance. Pt states that she had some reactions after Compazine IVS. Provide Zofran per pt's request. Dressing change done on ileostomy site d/t dampness. Will continue to monitor.
[2019-01-17] MEDS: Dyna-Hex 2% Top Sol 2oz TOPIC SCH (20:22)
[2019-01-17] MEDS: Ketorolac 30mg Inj IV PRN (20:22)
[2019-01-17] MEDS: Iron Sucrose 100 MG in NS 55 ML IV SCH (20:49)
--- NOTE | 2019-01-17 21:00 | NUR ---
NURSE NOTES: No nausea noted. Pain level is decreased by pt's remark. Noted less flow from ileostomy and done NS 20ml flush and flushed back with brownish drainage. Encourage for oral hydration and provide grape juice to loosen drainage. Will continue to monitor.
[2019-01-18] VITALS: BP 91/57
[2019-01-18 04:30] VITALS: BP 112/64
--- NOTE | 2019-01-18 05:10 | NUR ---
NURSE NOTES: Provide Tylenol for SEBASTIAN but denies pain on surgery area. No N/V noted. Labs are withdrawn via PICC. Ileostomy site dressing got soaked and changed with 4x4 gauze and ABD. Site is clear without discharge. Noted brownish drainage after flushing. Will continue to monitor.
--- NOTE | 2019-01-18 06:00 | NUR ---
NURSE NOTES: SEBASTIAN is getting better by pt's remark. No acute distress noted. Will continue to monitor. 12hrs output Urine: 450ml Ileostomy: 345ml
[2019-01-18 06:52] LABS: BASOPHILS % (AUTO) 1.1 % (0.0-2.0); EOSINOPHILS % (AUTO) 8.8 % (0.0-3.0); HEMATOCRIT 36.8 % (37.0-47.0); HEMOGLOBIN 11.9 G/DL (12.0-16.0); LYMPHOCYTES % (AUTO) 19.7 % (20.0-45.0); MEAN CORPUSCULAR VOLUME 79 FL (80-99); MONOCYTES % (AUTO) 9.4 % (1.0-10.0); PLATELET COUNT 485 K/UL (150-450); RED BLOOD COUNT 4.63 M/UL (4.20-5.40); RED CELL DISTRIBUTION WIDTH 13.4 % (11.6-14.8); WHITE BLOOD COUNT 10.8 K/UL (4.8-10.8)
[2019-01-18 07:08] LABS: ALANINE AMINOTRANSFERASE 20 U/L (12-78); ALBUMIN 3.4 G/DL (3.4-5.0); ALBUMIN/GLOBULIN RATIO 0.9 (1.0-2.7); ALKALINE PHOSPHATASE 51 U/L (46-116); ANION GAP 11 mmol/L (5-15); ASPARTATE AMINO TRANSFERASE 17 U/L (15-37); BILIRUBIN,TOTAL 0.2 MG/DL (0.2-1.0); BLOOD UREA NITROGEN 6 mg/dL (7-18); CALCIUM 8.9 MG/DL (8.5-10.1); CARBON DIOXIDE 24 MMOL/L (21-32); CHLORIDE 104 MMOL/L (98-107); CREATININE 0.7 MG/DL (0.55-1.30); POTASSIUM 3.8 MMOL/L (3.5-5.1); SODIUM 139 MMOL/L (136-145)
--- NOTE | 2019-01-18 07:30 | NUR ---
HAND-OFF: Report given to CARIE Ellis.
--- NOTE | 2019-01-18 07:30 | NUR ---
NURSE NOTES: Pt lying in bed w/ at bedside, bed in lowest position, and call light within reach. Pt A&Ox4, VSS, and in no apparent distress. STEVEN PICC line intact/asymptomatic & H/L'd; ileo to gravity drainage; and surgical dressing C/D/I. Pt has no complaints or concerns at this time. Will continue to monitor.
[2019-01-18 08:00] VITALS: BP 106/63
--- NOTE | 2019-01-18 09:03 | General Progress Note ---
Progress Note Progress Note AVSS Tolerated BCIR low residue diet with ileo effluent thicker now Abdomen soft, incision healing Perineum clean, pilonidal sinus tract clean Urine 1900 BCIR ileo 1265 WBC 10,800 Hgb 11.9 Platelets 485,000 albumin 3.4 Imp. Improving Plan: Maintain BCIR low residue diet and indwelling Canseco pouch catheter to continuous drainage Venofer f/u labs Begin RN supervised BCIR self-intubations 24-48 hours Jose Aceves MD Jan 18, 2019 09:03
[2019-01-18] MEDS: Nystatin Susp 500,000 units/5ml ORAL SCH ×4 (09:37→20:26)
[2019-01-18] MEDS: Ascorbic Acid 500mg tab ORAL PRN ×3 (11:17→23:52)
[2019-01-18 12:00] VITALS: BP 100/62
[2019-01-18 16:00] VITALS: BP 105/66
--- NOTE | 2019-01-18 19:10 | NUR ---
NURSE NOTES: Receive a report from CARIE Ellis. Round is done. Denies pain but request pain medication before bedtime. Noted thick drainage via ileostomy. Has been flushing with taking Vit C 500mg 1t po. Refuses to drink grape juice d/t making gas. Will provide another dose of Vit C 500mg 1 t po. Will continue to monitor.
--- NOTE | 2019-01-18 19:10 | NUR ---
HAND-OFF: Report given to CARIE Antoine.
[2019-01-18] MEDS: Dyna-Hex 2% Top Sol 2oz TOPIC SCH (19:34)
[2019-01-18 20:00] VITALS: BP 97/62
[2019-01-18] MEDS: Ketorolac 30mg Inj IV PRN (20:27)
--- NOTE | 2019-01-18 21:30 | NUR ---
NURSE NOTES: Pain relieved after Toradol 30mg IVP. Noted wet gauze around ileostomy dressing and done change dressing with gauze and ABD. Ileostomy site is clear. Still noted thick drainage via ileostomy. Flushing done with NS 20ml two times and 20ml came out. Will continue to monitor.
[2019-01-18] MEDS: Iron Sucrose 100 MG in NS 55 ML IV SCH (21:35)
--- NOTE | 2019-01-18 23:40 | NUR ---
NURSE NOTES: Pt complains for fullness. Done more flushing via ileostomy with NS 20ml+30ml+20ml. Noted slow flow of drainage. After coming out flow, pt feels a little bit comfortable. Provide Vit C 500mg 1 t po medication. Will continue to monitor.
[2019-01-19] VITALS (7 sets, daily range): BP systolic 92–108; BP diastolic 49–72
--- NOTE | 2019-01-19 04:00 | NUR ---
NURSE NOTES: Request for extra flushing despite routine and more flushing. Drainage is drained with thick conditions. Will continue to monitor.
--- NOTE | 2019-01-19 06:00 | NUR ---
NURSE NOTES: No acute distress noted. Denies pain. Done blood withdraw by peripheral line. Will continue to follow up. 12hr output Urine: 1650ml Ileostomy: 240ml-190ml(flushing)=50ml
[2019-01-19 06:26] LABS: BASOPHILS % (AUTO) 0.9 % (0.0-2.0); EOSINOPHILS % (AUTO) 6.4 % (0.0-3.0); HEMATOCRIT 36.4 % (37.0-47.0); HEMOGLOBIN 11.9 G/DL (12.0-16.0); LYMPHOCYTES % (AUTO) 20.5 % (20.0-45.0); MEAN CORPUSCULAR VOLUME 80 FL (80-99); MONOCYTES % (AUTO) 9.6 % (1.0-10.0); NEUTROPHILS % (AUTO) 62.6 % (45.0-75.0); PLATELET COUNT 522 K/UL (150-450); RED BLOOD COUNT 4.53 M/UL (4.20-5.40); RED CELL DISTRIBUTION WIDTH 13.9 % (11.6-14.8); WHITE BLOOD COUNT 11.6 K/UL (4.8-10.8)
[2019-01-19 06:36] LABS: ANION GAP 8 mmol/L (5-15); BLOOD UREA NITROGEN 6 mg/dL (7-18); CALCIUM 8.9 MG/DL (8.5-10.1); CARBON DIOXIDE 27 MMOL/L (21-32); CHLORIDE 106 MMOL/L (98-107); CREATININE 0.7 MG/DL (0.55-1.30); POTASSIUM 4.3 MMOL/L (3.5-5.1); SODIUM 141 MMOL/L (136-145)
--- NOTE | 2019-01-19 07:15 | NUR ---
HAND-OFF: Report given to Earnest Mcfadden. Round is done. Pt is about to start to have breakfast. No acute distress noted.
--- NOTE | 2019-01-19 07:26 | NUR ---
NURSE NOTES: Received report from CARIE Antoine. Rounding done with outgoing nurse. Pt a/o x 4, in bed, having breakfast. is at bedside. Rt ileostomy bag is in placed, patent. Abdominal dressing is C/D/I but pt wants us to change the dressing after she finish breakfast. Bed in lowest position, call light within reach. Will continue to monitor.
--- NOTE | 2019-01-19 08:10 | NUR ---
NURSE NOTES: Patient is ambulating hallway in stable condition.
[2019-01-19] MEDS: Nystatin Susp 500,000 units/5ml ORAL SCH ×4 (08:26→21:05)
--- NOTE | 2019-01-19 08:40 | NUR ---
NURSE NOTES: Abdominal surgical site dressing was changed. Dressing is C/D/I.
--- NOTE | 2019-01-19 10:03 | NUR ---
CASE MANAGEMENT: REVIEW 01/18/19 SI: POD# 8 COLMENARES CONTINENT ILEOSTOMY POUCH ENDOSCOPY 97.9 77 18 106/63 98 % ON RA BUN 6 IS: IV FE SUCROSE 2 OF 5 BAGS QHS IV TORADOL Q6/PRN IV ZOFRAN Q4/PRN LAMICTAL PO QHS NYSTATIN PO QID : 3E MED/SURG UNIT DCP: PATIENT IS FROM HOME PLAN: START BCIR LOW RESIDUE DIET CONT DRAINAGE OF COLMENARES POUCH BEGIN BCIR SELF INTUBATION CASE MANAGEMENT: REVIEW 01/19/19 SI: POD# 9 CLOMENARES CONTINENT ILEOSTOMY POUCH ENDOSCOPY 98.4 83 20 97/63 99% ON RA BUN 6 WBC 11.6 IS: IV FE SUCROSE 2 OF 5 BAGS QHS IV TORADOL Q6/PRN IV ZOFRAN Q4/PRN LAMICTAL PO QHS NYSTATIN PO QID : 3E MED/SURG UNIT DCP: PATIENT IS FROM HOME PLAN: BCIR SELF INTUBATION 24/48HRS
--- NOTE | 2019-01-19 10:32 | NUR ---
*-* INSURANCE *-* UPDATED CLINICALS AND REVIEWS HAVE BEEN FAXED TO: [facility] ASSIGNED PLS FAX CLINICALS TO [phone]
--- NOTE | 2019-01-19 10:59 | General Progress Note ---
Progress Note Progress Note AVSS Had cramping and thick ileo output - better now Abdomen soft, lower incision with erythema and debbie removed no fluctuance Urine 2000 BCIR ileo 470 (only 50cc overnight despite irrigating) - ate BCIR diet 60% WBC 11,600 up Hgb 11.9 Platelets up 522,000 Imp. Abdominal pain and decreased Canseco pouch ileo output Leukocytosis Plan: STAT CT scan abd+pelvis with oral and IV contrast Jose Aceves MD Jan 19, 2019 10:59
[2019-01-19] MEDS ORDERED: Omnipaque-300 100ml vial INJ PRN (11:00)
--- NOTE | 2019-01-19 13:06 | NUR ---
NURSE NOTES: patient left the unit for CT scan with stable condition.
--- NOTE | 2019-01-19 13:29 | NUR ---
NURSE NOTES: patient came back to the unit from CT scan with stable condition.
[2019-01-19] MEDS ORDERED: NS Irrig 1000ml ONE (15:26)
--- NOTE | 2019-01-19 15:52 | NUR ---
NURSE NOTES: Patient is ambulating hallway with steady gait. Pt stat "I feel better".
--- NOTE | 2019-01-19 18:52 | NUR ---
NURSE NOTES: patient is walking hallway and assists patient.
--- NOTE | 2019-01-19 19:41 | NUR ---
HAND-OFF: Report given to Frances DARNELL. Patient is A/O x4 and stable condition.
--- NOTE | 2019-01-19 19:45 | NUR ---
NURSE NOTES: Received patient on bed, awake and verbally responsive with RP on the bedside. No SOB. not in any form of respiratory distress. with ileostomy and PICC Line. bed locked and in lowest position. call light and light button within easy reach. will continue plan of care.
[2019-01-19] MEDS: Iron Sucrose 100 MG in NS 55 ML IV SCH (21:05)
[2019-01-19] MEDS: Dyna-Hex 2% Top Sol 2oz TOPIC SCH (21:06)
[2019-01-20 04:00] VITALS: BP 103/60
[2019-01-20] MEDS ORDERED: Cathflo Alteplase 2mg Inj INJ SCH ×2 (04:00)
[2019-01-20 05:23] LABS: BASOPHILS % (AUTO) 1.2 % (0.0-2.0); HEMATOCRIT 37.1 % (37.0-47.0); LYMPHOCYTES % (AUTO) 22.4 % (20.0-45.0); MEAN CORPUSCULAR VOLUME 80 FL (80-99); MONOCYTES % (AUTO) 8.5 % (1.0-10.0); NEUTROPHILS % (AUTO) 61.8 % (45.0-75.0); PLATELET COUNT 507 K/UL (150-450); RED BLOOD COUNT 4.64 M/UL (4.20-5.40); RED CELL DISTRIBUTION WIDTH 13.6 % (11.6-14.8); WHITE BLOOD COUNT 9.8 K/UL (4.8-10.8)
[2019-01-20 05:24] LABS: ANION GAP 9 mmol/L (5-15); BLOOD UREA NITROGEN 6 mg/dL (7-18); CALCIUM 8.7 MG/DL (8.5-10.1); CARBON DIOXIDE 26 MMOL/L (21-32); CHLORIDE 106 MMOL/L (98-107); CREATININE 0.7 MG/DL (0.55-1.30); POTASSIUM 3.9 MMOL/L (3.5-5.1); SODIUM 140 MMOL/L (136-145)
[2019-01-20] MEDS: Ascorbic Acid 500mg tab ORAL PRN (06:05)
[2019-01-20] MEDS: Ketorolac 30mg Inj IV PRN ×2 (06:19→20:10)
--- NOTE | 2019-01-20 06:28 | NUR ---
nurse's notes: noted thick ileo output even if flushed with 40cc NS x2; vitamin c given as ordered; true ileo output this shift was 430; total UOP was 800; will continue to monitor.
--- NOTE | 2019-01-20 07:30 | NUR ---
NURSE NOTES: Received report from Frances DARNELL. Patient is awake and oriented, no acute distress noted, reporting no pain at this time. Patient is having breakfast and states she is tolerating diet well. STEVEN PICC intact, per report from nightshift RN catheter is patent s/p cathoflo administration. Ileo to gravity drainage. Patient updated on plan of care for the day. Side rails upx2, bed low and locked, call light within reach.
--- NOTE | 2019-01-20 07:38 | NUR ---
HAND-OFF: Report given to CARIE hendricks.
[2019-01-20 08:00] VITALS: BP 111/64
[2019-01-20] MEDS: Nystatin Susp 500,000 units/5ml ORAL SCH ×4 (09:09→20:04)
[2019-01-20] MEDS ORDERED: NS Irrig 1000ml ONE (09:46)
[2019-01-20] MEDS ORDERED: Albuterol/Ipratropium 3ml neb HHN PRN (10:12)
--- NOTE | 2019-01-20 10:40 | General Progress Note ---
Progress Note Progress Note AVSS doing well overall. CT scan negative Abdomen soft. Jason removed and steristrips applied BCIR ileo catheter removed - reinserts readily Urine 1320 BCIR ileo 1770 including oral contrast WBC 9800 Hgb 12 Platelets down 507,000 BMP ok Imp. Improved Plan:RN supervised BCIR self-intubations q3h am to hs and prn anticipate discharge in AM full instructions/limitations/supplies provided/discussed Rx -- none F/U 01/23 and prn Jose Aceves MD Jan 20, 2019 10:40
--- NOTE | 2019-01-20 10:45 | NUR ---
NURSE NOTES: Medication reconciliation reviewed with Dr. Aceves and entered, patient to continue all home medications except for Cefdinir per MD.
[2019-01-20 12:00] VITALS: BP 108/68
[2019-01-20 16:00] VITALS: BP 107/70
--- NOTE | 2019-01-20 18:20 | NUR ---
NURSE NOTES: Total ileo output for shift: +350ml Total urine output: 400mL Patient self intubating without difficulty, tolerating diet, provided with discharge supplies.
--- NOTE | 2019-01-20 19:09 | NUR ---
HAND-OFF: Report given to Frances DARNELL.
[2019-01-20] MEDS: Dyna-Hex 2% Top Sol 2oz TOPIC SCH (19:38)
[2019-01-20] MEDS: Iron Sucrose 100 MG in NS 55 ML IV SCH (19:38)
--- NOTE | 2019-01-20 19:54 | NUR ---
NURSE NOTES: Received patient awake, sitting on the bedside. NO SOB. respirations even and unlabored. Denies any pain or discomfort. bed locked and in lowest position. call light and light button within easy reach.will continue plan of care.
[2019-01-20 19:58] VITALS: BP 109/68
--- NOTE | 2019-01-21 03:08 | NUR ---
Nurse's Notes: patient adept at self-intubating as witnessed by her nurses; colindres in stoma attached to a leg bag; patient discharged with spouse John; discharge instructions given; verbalized understanding; all belongings including own medications given to them; in no apparent distress at this time; stable; no complaints.
--- NOTE | 2019-01-22 09:14 | Discharge Summary ---
Discharge Summary Hospital Course Date of Admission Jan 09, 2019 at 09:04 Date of Discharge Jan 21, 2019 at 03:02 Admitting Diagnosis malfunctioning Canseco continent ileostomy Reason for Hospitalization: elective surgery LORI Martinez is a 33 year old female who was admitted on Jan 09, 2019 at 09:04 for malfunctioning Canseco continent ileostomy. 33-year-old female in overall stable health with a malfunctioning Canseco continent ileostomy with severe difficulty with intubation. The patient developed ulcerative colitis and in 2013 underwent abdominal colectomy with creation of a conventional Kady ileostomy. In July 2017, she underwent surgery in [place], including removal of the remaining sigmoid colon, rectum, and anus, involving abdomino-perineal proctectomy and creation of a Canseco continent ileostomy. The patient did well intubating three times a day and not at all at night with her Canseco pouch. However, in 06/09/2018 in [place] she underwent total abdominal hysterectomy and revision of her Canseco continent ileostomy because of some difficulty with intubation. After that surgery, the patient had an infection, wound separation which was re- sutured and packed. Following this, the patient had more difficulty intubating and on 12/01/2018 and 12/13/2018 at her home in [place], she had to go to the emergency room and finally underwent a Canseco pouch endoscopy and a 26-Togolese Malagon catheter was placed with the inflated balloon so it could not come out. Since that time, she kept the indwelling catheter to a drainage bag, but she had stool leaking around it and increasing peristomal skin irritation and peristomal pain, but no incontinence. 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 Patient was scheduled to undergo admission, pouch endoscopy and surgical revision of her malfunctioning Canseco continent ileostomy. Procedures s/p 01/09/[address] Yola Canseco continent ileostomy pouch endoscopy. s/p 01/10/[address] Aceves 1. Laparotomy with revision of Canseco continent ileostomy, partial valve dessusception. 2. Excision of pelvic cyst and omental remnant. 3. Curetting and cauterization of chronic perineal and pilonidal sinus tracts. Hospital Course patient admitted patient undergone on a day of admission 01/09 Canseco continent ileostomy pouch endoscopy, which revealed elongated, redundant and angulated access segment pouch mucosa was completely normal the nipple valve was well formed circumferentially patient subsequently undergone on 01/10 laparotomy with revision of Canseco continent ileostomy, partial valve dessusception. Excision of pelvic cyst and omental remnant. Curetting and cauterization of chronic perineal and pilonidal sinus tracts patient tolerated procedure well postoperatively pain management was addressed with Dilaudid SCIENTIFIC ADVISOR patient was on empiric antibiotics. patient initially was n.p.o. continuous drainage of Canseco pouch was maintained Malagon catheter was continued patient was ambulating without difficulties incentive spirometry was encouraged while in the bed labs and intake and output were closely monitored initial mild leukocytosis postoperatively was trending down hemoglobin trended down anemia work-up revealed low iron 14, low ferritin 31, B12 -489 and folate- 14.1 P patient continued with n.p.o. status Malagon catheter and SCIENTIFIC ADVISOR continued Toradol was added for breakthrough pain patient started on IV Venofer B12 intramuscularly x1 administered leukocytosis resolved , patient remained afebrile albuterol inhaler was on board as needed for asthma urine culture was negative ileus was gradually resolving incision remained clean labs and strict intake and output were clsoely followed patient had a history of interstitial cystitis; home medication for interstitial cystitis continued ileus resolved patient started on clear liquid diet antibiotic stopped continued drainage of Canseco pouch was maintained diet was gradually advanced to BCIR low residue diet as tolerated indwelling catheter was maintained to Canseco pouch to continuous drainage incision was healing well labs revealed mild leukocytosis debbie removed of the incision , no fluctuance noted patient reported abdominal pain , decreased Canseco pouch ileo output noted along with mild leukocytosis patient subsequently undergone CT scan of abdomen and pelvis , which revealed no acute findings patient started on RN supervised self intubation every 3 hours a.m. to hs and as needed patient was able to perform self intubation well full instruction/limitations/supplies provided/discussed patient to follow-up in the office on 01/23 and as needed patient was stable for discharge FINAL DIAGNOSES: 1. 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 2. History of ulcerative colitis. 3. Chronic perineal and pilonidal sinus tracts. 4. STATUS POST MULTIPLE ABDOMINAL OPERATIONS: 4.1. Cholecystectomy. 4.2. section. 4.3. Abdominal colectomy and Kady ileostomy in 2013. 4.4. Canseco continent ileostomy and abdominal-perineal proctectomy in July 2017. 4.5. Total abdominal hysterectomy with revision of Canseco continent ileostomy in May 2018. (All these operations were done in other states). 5. Laparotomy with revision of Canseco continent ileostomy, partial valve dessusception. Excision of pelvic cyst and omental remnant. Curetting and cauterization of chronic perineal and pilonidal sinus tracts -01/10/19 6. Ileus-resolved 7. Anemia of iron deficiency Discharge Medications Continued Medications: Albuterol Sulfate* (Albuterol Sulfate Mdi*) 8.5 Gm Hfa.aer.ad 2 PUFF INH Q3H, #1 INH 0 Refills (This prescription has been renewed) Alprazolam* (Xanax*) 0.25 Mg Tablet 0.25 MG ORAL TID PRN for PRN Agitation/Anxiety, #30 TAB 0 Refills (This prescription has been renewed) Dicyclomine Hcl (Bentyl) 10 Mg/1 Ml Ampul 10 MG PO PRN, AMP (This prescription has been renewed) Etonogestrel (Nexplanon) 68 Mg Implant 68 MG SQ, EA (This prescription has been renewed) Hydroxyzine Pamoate* (Vistaril*) 50 Mg Capsule 10 MG ORAL QHS, #20 TAB 0 Refills (This prescription has been renewed) Lamotrigine* (Lamictal*) 100 Mg Tablet 200 MG ORAL QHS, #30 TAB 0 Refills (This prescription has been renewed) Pentosan Polysulfate Sodium* (Elmiron*) 100 Mg Cap 100 MG ORAL TID, CAP (This prescription has been renewed) Spironolactone* (Spironolactone*) 100 Mg Tablet 50 MG ORAL BID, TAB (This prescription has been renewed) Discontinued Medications: Cefdinir (Cefdinir) 300 Mg Capsule 300 MG PO BID, CAP Discharge Discharge Disposition Patient was discharged home Discharge Instructions Discharge Instructions Special Instructions I have been assigned to complete a D/C Summary on this account. I was not involved in the patient management July Rivas NP Jan 22, 2019 09:14
--- NOTE | 2019-01-22 13:35 | NUR ---
*-* INSURANCE *-* UPDATED CLINICALS AND REVIEWS HAVE BEEN FAXED TO: ALYEEN FARRIS [facility] ASSIGNED PLS FAX CLINICALS TO [phone] Addendum: 01/22/19 at 1337 by MARY KEARNS CM DISCHARGE SUMMARY HAS BEEN FAXED
== END 2019-01-21 03:02 | disposition home or self-care (01) | DRG 327 ==
LOC: 3E 09:04
PROC: 02HV33Z Insertion of Infusion Device into Superior Vena Cava, Percutaneous Approach (ICD-10-PCS; principal; 2019-01-09 13:16)
PROC: 0DJD8ZZ Inspection of Lower Intestinal Tract, Via Natural or Artificial Opening Endoscopic (ICD-10-PCS; principal; 2019-01-09 13:16)
PROC: 0WQ6XZ2 Repair Neck, Stoma, External Approach (ICD-10-PCS; 2019-01-10)
PROC: 0DBU0ZZ Excision of Omentum, Open Approach (ICD-10-PCS; 2019-01-10)
PROC: 0WBH0ZZ Excision of Retroperitoneum, Open Approach (ICD-10-PCS; 2019-01-10)
DX: K94.13 Enterostomy malfunction (principal); K91.850 Pouchitis; K56.7 Ileus, unspecified; Y83.3 Surgical operation with formation of external stoma as the cause of abnormal reaction of the patient, or of later complication, without mention of misadventure at the time of the procedure; Z88.6 Allergy status to analgesic agent; Z88.2 Allergy status to sulfonamides; Z88.8 Allergy status to other drugs, medicaments and biological substances; M79.7 Fibromyalgia; Z90.49 Acquired absence of other specified parts of digestive tract; Z87.19 Personal history of other diseases of the digestive system; F32.9 Major depressive disorder, single episode, unspecified; N30.10 Interstitial cystitis (chronic) without hematuria; Z90.710 Acquired absence of both cervix and uterus; D50.9 Iron deficiency anemia, unspecified
CPT/HCPCS: 36415; 36569; 71045; 74177; 76937; 80048; 80053; 81001; 81003; 81025; 82607; 82728; 82746; 83540; 83735; 84100; 85025; 85610; 85730; 86850; 86900; 86901; 87081; 87086; 93005; 94003; 94150; 94640; 94664; J2250; J2405; J7620

== ENCOUNTER 2019-10-30 13:49 | Inpatient (IN) | payer OTHER ==
[~2019-10-30] VITALS: Ht 165.1 cm; Wt 64.5 kg
[~2019-10-30 13:49] MED LIST: ALBUTEROL SULF8.5 GM INH; BENTYL10 MG/1 ML PO; CEFDINIR300 MG PO; ELMIRON100 MG ORAL; ESTRADIOL-NORE1 EACH PO; LAMICTAL100 MG ORAL; NEXPLANON68 MG SQ; SPIRONOLACTONE100 MG ORAL; VISTARIL50 MG ORAL; XANAX0.25 MG ORAL
[2019-10-30 14:07] VITALS: BP 118/76
--- NOTE | 2019-10-30 14:11 | Emergency Room Report ---
History of Present Illness General Chief Complaint: General Complaint Source: Patient Present Illness HPI Patient is a 34-year-old female past medical history of colitis status post Hoang pouch ileostomy placement in December here with Dr. Aceves who presents to the ER for malfunctioning Hoang pouch. Per patient she started noticing occasional malfunctioning over the past month. She complains of some pain around the site. She denies any fever or chills. She denies any nausea or vomiting. Patient just flew in from [place] where she resides prior to arrival. Patient denies any chest pain or shortness of breath. Allergies: Coded Allergies: CODEINE (Verified Allergy, Unknown, 01/09/19) METOCLOPRAMIDE (Verified Allergy, Unknown, 01/09/19) SULFA (SULFONAMIDE ANTIBIOTICS) (Verified Allergy, Unknown, 01/09/19) SUTURE (Verified Allergy, Unknown, 01/09/19) VICRYL CIPROFLOXACIN (Verified Adverse Reaction, Unknown, 01/09/19) ANGRY, CRYING, VERY EMOTIONAL. COVID-19 Screening Contact w/high risk pt: No Experienced COVID-19 symptoms?: No COVID-19 Testing performed MULTIPLE RESAW OPERATOR: No Patient History Now: No Reviewed Nursing Documentation: PMH: Agreed; PSxH: Agreed Nursing Documentation-PMH Hx Cardiac Problems: No Hx Asthma: Yes Hx Cancer: No Hx Gastrointestinal Problems: Yes Hx Neurological Problems: No Review of Systems All Other Systems: negative except mentioned in HPI Physical Exam Vital Signs Date Time Temp Pulse Resp B/P (MAP) Pulse Ox O2 Delivery O2 Flow Rate FiO2 10/30/19 13:54 97.9 100 22 118/76 (90) 98 Room Air Sp02 EP Interpretation: reviewed, normal General Appearance: no apparent distress, alert, GCS 15, non-toxic Head: normocephalic, atraumatic Eyes: bilateral eye normal inspection, bilateral eye PERRL ENT: dry mucus membranes Neck: full range of motion, supple/symm/no masses Respiratory: chest non-tender, lungs clear, normal breath sounds, speaking full sentences Cardiovascular #1: regular rate, rhythm, no edema Gastrointestinal: other - Right lower quadrant ileostomy site with Malagon catheter in place mild tenderness to palpation with no guarding or rebound tenderness multiple old healed abdominal surgical incision sites Rectal: deferred Genitourinary: no CVA tenderness Musculoskeletal: normal range of motion, no calf tenderness Neurologic: network technical analyst III-XII nml as tested, oriented x3 Psychiatric: no suicidal/homicidal ideation Skin: no rash Lymphatic: no adenopathy Medical Decision Making Diagnostic Impression: Primary Impression: malfunctioning hoang continent ileostomy Additional Impression: Hypokalemia ER Course Patient given IV fluids and kept n.p.o. Patient preop. Patient mildly hypokalemic with potassium of 3.3. 10 mEq of IV potassium chloride ordered. Patient to be admitted for further treatment and evaluation. Laboratory Tests Test 10/30/19 14:14 White Blood Count 9.8 K/UL (4.8-10.8) Red Blood Count 5.10 M/UL (4.20-5.40) Hemoglobin 14.5 G/DL (12.0-16.0) Hematocrit 43.9 % (37.0-47.0) Mean Corpuscular Volume 86 FL (80-99) Mean Corpuscular Hemoglobin 28.5 PG (27.0-31.0) Mean Corpuscular Hemoglobin Concent 33.1 G/DL (32.0-36.0) Red Cell Distribution Width 11.8 % (11.6-14.8) Platelet Count 440 K/UL (150-450) Mean Platelet Volume 5.3 FL (6.5-10.1) L Neutrophils (%) (Auto) 64.2 % (45.0-75.0) Lymphocytes (%) (Auto) 25.2 % (20.0-45.0) Monocytes (%) (Auto) 6.2 % (1.0-10.0) Eosinophils (%) (Auto) 2.7 % (0.0-3.0) Basophils (%) (Auto) 1.7 % (0.0-2.0) Prothrombin Time 11.9 SEC (9.30-11.50) H Prothrombin Time INR 1.1 (0.9-1.1) Activated Partial Thromboplast Time 34 SEC (23-33) H Urine Color Yellow Urine Appearance Clear Urine pH 5 (4.5-8.0) Urine Specific [place] 1.020 (1.005-1.035) Urine Protein Negative (NEGATIVE) Urine Glucose (UA) Negative (NEGATIVE) Urine Ketones 4+ (NEGATIVE) H Urine Blood 3+ (NEGATIVE) H Urine Nitrite Negative (NEGATIVE) Urine Bilirubin Negative (NEGATIVE) Urine Urobilinogen Normal MG/DL (0.0-1.0) Urine Leukocyte Esterase Negative (NEGATIVE) Urine RBC Pending Urine WBC Pending Urine Squamous Epithelial Cells Pending Urine Bacteria Pending Urine HCG, Qualitative Negative (NEGATIVE) Sodium Level 139 MMOL/L (136-145) Potassium Level 3.3 MMOL/L (3.5-5.1) L Chloride Level 102 MMOL/L (98-107) Carbon Dioxide Level 23 MMOL/L (21-32) Anion Gap 14 mmol/L (5-15) Blood Urea Nitrogen 6 mg/dL (7-18) L Creatinine 0.7 MG/DL (0.55-1.30) Estimated Glomerular Filtration Rate > 60 mL/min (>60) Glucose Level 82 MG/DL (74-106) Calcium Level 9.1 MG/DL (8.5-10.1) Total Bilirubin 0.9 MG/DL (0.2-1.0) Aspartate Amino Transferase (AST) 24 U/L (15-37) Alanine Aminotransferase (ALT) 35 U/L (12-78) Alkaline Phosphatase 50 U/L (46-116) Total Protein 8.3 G/DL (6.4-8.2) H Albumin 4.5 G/DL (3.4-5.0) Globulin 3.8 g/dL Albumin/Globulin Ratio 1.2 (1.0-2.7) Lipase 94 U/L (73-393) Last Vital Signs Date Time Temp Pulse Resp B/P (MAP) Pulse Ox O2 Delivery O2 Flow Rate FiO2 10/30/19 14:07 100 22 Room Air 10/30/19 14:07 97.9 118/76 98 Disposition: ADMITTED INPATIENT Condition: Critical Additional Instructions: Please note that this report is being documented using 5app technology. This can lead to erroneous entry secondary to incorrect interpretation by the dictating instrument. Angie Myers M.D. Oct 30, 2019 14:11
[2019-10-30 14:54] LABS: BASOPHILS % (AUTO) 1.7 % (0.0-2.0); EOSINOPHILS % (AUTO) 2.7 % (0.0-3.0); HEMATOCRIT 43.9 % (37.0-47.0); HEMOGLOBIN 14.5 G/DL (12.0-16.0); LYMPHOCYTES % (AUTO) 25.2 % (20.0-45.0); MEAN CORPUSCULAR VOLUME 86 FL (80-99); MONOCYTES % (AUTO) 6.2 % (1.0-10.0); NEUTROPHILS % (AUTO) 64.2 % (45.0-75.0); PLATELET COUNT 440 K/UL (150-450); RED CELL DISTRIBUTION WIDTH 11.8 % (11.6-14.8); WHITE BLOOD COUNT 9.8 K/UL (4.8-10.8)
[2019-10-30 14:59] LABS: APPEARANCE,URINE CLEAR; BILIRUBIN, URINE NEGATIVE (NEGATIVE); COLOR,URINE YELLOW; GLUCOSE, URINE (UA) NEGATIVE (NEGATIVE); KETONES,URINE 4+ (NEGATIVE); LEUKOCYTE ESTERASE ,URINE NEGATIVE (NEGATIVE); NITRITE,URINE NEGATIVE (NEGATIVE); PH,URINE 5 (4.5-8.0); PROTEIN,URINE NEGATIVE (NEGATIVE); UROBILINOGEN,URINE NORMAL MG/DL (0.0-1.0)
[2019-10-30 15:04] LABS: INR 1.1 (0.9-1.1)
[2019-10-30 15:07] LABS: ANION GAP 14 mmol/L (5-15); BLOOD UREA NITROGEN 6 mg/dL (7-18); CALCIUM 9.1 MG/DL (8.5-10.1); CARBON DIOXIDE 23 MMOL/L (21-32); CHLORIDE 102 MMOL/L (98-107); CREATININE 0.7 MG/DL (0.55-1.30); POTASSIUM 3.3 MMOL/L (3.5-5.1); SODIUM 139 MMOL/L (136-145)
[2019-10-30 15:11] LABS: ALANINE AMINOTRANSFERASE 35 U/L (12-78); ALBUMIN 4.5 G/DL (3.4-5.0); ALBUMIN/GLOBULIN RATIO 1.2 (1.0-2.7); ALKALINE PHOSPHATASE 50 U/L (46-116); ASPARTATE AMINO TRANSFERASE 24 U/L (15-37); BILIRUBIN,TOTAL 0.9 MG/DL (0.2-1.0)
[2019-10-30 16:20] VITALS: BP 116/76
--- NOTE | 2019-10-30 16:27 | General Progress Note ---
Progress Note Progress Note Patient admitted via ER because of inability to intubate her Canseco continent ileostomy - local ER out of state inserted 18Fr Guthrie sump which she connected to drainage bag. Her usual 30Fr catheters and 24 Fr catheters would not enter the pouch with resistance deep into access segment Abdomen soft, mild distention. c/o natalia-umbilical pain x few months Imp: Malfunctioning Canseco continent ileostomy with inability to catheterize Plan; IV hydration; f/u labs Canseco pouch endoscopy tomorrow + PICC insertion Surgery scheduled for 11/01 - may need pre-op CT scan as well as endoscopy Jose Aceves MD Oct 30, 2019 16:27
[2019-10-30] MEDS ORDERED: Dicyclomine 10mg Cap ORAL PRN (17:45)
[2019-10-30] MEDS ORDERED: ALPRAZolam 0.25mg tab ORAL PRN (17:57)
--- NOTE | 2019-10-30 17:59 | Diagnostic Imaging Report ---
EXAM: XR Chest, 1 View CLINICAL HISTORY: PREOP TECHNIQUE: Frontal view of the chest. COMPARISON: 01/09/2019. FINDINGS: Lungs: The lungs are well aerated. Pleural space: Unremarkable. No pneumothorax. Heart: Cardiomediastinal silhouette unremarkable Mediastinum: See above. Bones/joints: Gentle levoscoliosis of the lower thoracic spine. Osteopenia. The ribs are grossly unremarkable. IMPRESSION: No active disease.
[2019-10-30] MEDS ORDERED: [UNRECOGNIZED DRUG - MIXTURE] ORAL PRN (18:15)
[2019-10-30] MEDS ORDERED: Lidocaine 1% Plain 30 ml INJ ONE (18:45)
[2019-10-30] MEDS ORDERED: Heparin1,000 units/500ml Premix(Conc:2 units/ml) IV ONE (18:45)
[2019-10-30] MEDS ORDERED: Albuterol ud Inhalation HHN PRN (19:00)
[2019-10-30 20:00] VITALS: BP 111/62
[2019-10-30] MEDS: Dyna-Hex 2% Top Sol 2oz TOPIC SCH (20:00)
[2019-10-30] MEDS: ELMIRON 100 MG ORAL SCH (20:26)
[2019-10-30] MEDS: D5 1/2NS w/KCl 20mEq 1,000 ML IV SCH (20:26)
[2019-10-31] VITALS: BP 116/69
[2019-10-31 04:00] VITALS: BP 107/68
[2019-10-31] MEDS: D5 1/2NS w/KCl 20mEq 1,000 ML IV SCH ×2 (05:54→16:00)
[2019-10-31 06:30] LABS: ANION GAP 9 mmol/L (5-15); BLOOD UREA NITROGEN 3 mg/dL (7-18); CALCIUM 8.7 MG/DL (8.5-10.1); CARBON DIOXIDE 25 MMOL/L (21-32); CHLORIDE 109 MMOL/L (98-107); CREATININE 0.7 MG/DL (0.55-1.30); POTASSIUM 4.3 MMOL/L (3.5-5.1); SODIUM 143 MMOL/L (136-145)
[2019-10-31 06:33] LABS: ALANINE AMINOTRANSFERASE 30 U/L (12-78); ALBUMIN 3.7 G/DL (3.4-5.0); ALBUMIN/GLOBULIN RATIO 1.2 (1.0-2.7); ALKALINE PHOSPHATASE 38 U/L (46-116); ASPARTATE AMINO TRANSFERASE 18 U/L (15-37); BILIRUBIN,TOTAL 0.9 MG/DL (0.2-1.0)
[2019-10-31 06:46] LABS: BASOPHILS % (AUTO) 1.9 % (0.0-2.0); EOSINOPHILS % (AUTO) 6.6 % (0.0-3.0); HEMATOCRIT 42.2 % (37.0-47.0); HEMOGLOBIN 13.8 G/DL (12.0-16.0); LYMPHOCYTES % (AUTO) 34.4 % (20.0-45.0); MEAN CORPUSCULAR VOLUME 86 FL (80-99); MONOCYTES % (AUTO) 9.9 % (1.0-10.0); NEUTROPHILS % (AUTO) 47.2 % (45.0-75.0); PLATELET COUNT 348 K/UL (150-450); RED BLOOD COUNT 4.88 M/UL (4.20-5.40); RED CELL DISTRIBUTION WIDTH 11.9 % (11.6-14.8); WHITE BLOOD COUNT 6.7 K/UL (4.8-10.8)
[2019-10-31 08:00] VITALS: BP 98/65
--- NOTE | 2019-10-31 08:22 | Pre-Procedure Note/Attestation ---
Pre-Procedure Note/Attestation Complete Prior to Procedure Planned Procedure: not applicable Procedure Narrative: Canseco continent ileostomy pouch endoscopy Indications for Procedure Pre-Operative Diagnosis: malfunctioning Canseco pouch with inability to intubate Attestation I attest that I discussed the nature of the procedure; its benefits; risks and complications; and alternatives (and the risks and benefits of such alternatives ), prior to the procedure, with the patient (or the patient's legal insurance sales representative). I attest that, if there was a reasonable possibility of needing a blood transfusion, the patient (or the patient's legal insurance sales representative) was given the [facility] of Health Services standardized written summary, pursuant to the Francisco Javier Luttrell Blood Safety Act ([place] Health and Safety Code # 1645, as amended). I attest that I re-evaluated the patient just prior to the surgery and that there has been no change in the patient's H&P, except as documented below: none Jose Aceves MD Oct 31, 2019 08:22
[2019-10-31] MEDS ORDERED: Lidocaine 1% Plain 30 ml INJ ONE (09:00)
[2019-10-31] MEDS ORDERED: Heparin1,000 units/500ml Premix(Conc:2 units/ml) IV ONE (09:00)
[2019-10-31] MEDS: ELMIRON 100 MG ORAL SCH ×3 (09:28→18:41)
--- NOTE | 2019-10-31 11:15 | Pre-op HX & Phy Repo 2 SIG ---
DATE OF ADMISSION: 10/30/2019 EMERGENCY ADMISSION FROM EMERGENCY ROOM Admitted from the emergency room on October 30, 2019. HISTORY OF PRESENT ILLNESS: The patient is a 34-year-old female in overall stable health, who presents with a malfunctioning Canseco continent ileostomy with recent acute inability to intubate her pouch to evacuate stool and gas. The patient underwent surgery in December, because of complications of prior surgery done elsewhere. All of which will be listed at the end of this dictation. She could not intubate and had an endoscopy in November 2018 and had incontinence around the catheter, underwent surgery on January 10, 2019 with revision of a partial valve involving her Canseco continent ileostomy pouch. The patient did well until recent two months when she started having difficulty with intubation, but no incontinence. She had to go to local emergency room and the only catheter they can insert was an 18-Bahamian Elbert Sump nasogastric tube. Her usual 30-Bahamian catheters or 24-Bahamian catheters could not enter the pouch. Since that time, she has kept this 18-Bahamian catheter taped in place to drainage bag and was advised to urgently come to [place]. She presented to our emergency room. The patient was stable and was admitted. She also has a history of chronic pouchitis. She usually takes cefdinir, but that did not affect her inability to catheterize her continent ileostomy pouch. PAST MEDICAL HISTORY AND MEDICATIONS: Albuterol for asthma as needed, spironolactone for cystic acne, Xanax for anxiety, cefdinir for pouchitis, clindamycin vaginal gel, Bentyl for cramping, cataracts, lamotrigine for depression, methenamine-hyoscyamine for bladder spasms and Elmiron for bladder spasms. ALLERGIES: Codeine, Reglan, and sulfa. She does not tolerate Cipro sometimes orally, but was not allergic to it. She had a wound infection in the past and her surgeon told her was because she was allergic to Vicryl without much other evidence of that. REVIEW OF SYSTEMS: 1, para 1. She has a history of interstitial cystitis, fibromyalgia, chronic perineal sinus tracts and history of endometriosis. OPERATIONS: She has had multiple abdominal operations. Please see complete list at the end of this dictation. PHYSICAL EXAMINATION: GENERAL: The patient is well developed and well nourished. VITAL SIGNS: She presents afebrile with mild tachycardia, but stable vital signs and dehydration and tachycardia, resolved. She is 5 feet 3 inches, approximately 150 pounds HEENT: Within normal limits. LUNGS: Clear. HEART: Regular rhythm. BREASTS: Without masses. ABDOMEN: Soft with a lower midline scar and a transverse suprapubic scar. The stoma of the Canseco continent ileostomy is low in the right lower quadrant with an 18-Bahamian Elbert Sump nasogastric tube in place for drainage. There is no evidence of abdominal wall hernia. PELVIC: Status post hysterectomy. RECTAL: Status post proctectomy with chronic perineal sinus tracts. EXTREMITIES: Without edema. Pulses 2+ femoral to pedal bilaterally. NEUROLOGIC: Physiologic. IMPRESSION: 1. Malfunctioning Canseco continent ileostomy with inability to intubate her pouch. 2. History of ulcerative colitis. 3. History of depression. 4. History of interstitial cystitis. 5. History of asthma. 6. History of fibromyalgia. 7. STATUS POST MULTIPLE ABDOMINAL OPERATIONS: 7.1. Cholecystectomy. 7.2. section. 7.3. Abdominal colectomy and Kady ileostomy in 2013. 7.4. Canseco continent ileostomy and abdominal perineal proctectomy performed in [place] July 27, 2017. 7.5. Total abdominal hysterectomy with revision of Canseco continent ileostomy performed in [place] June 09, 2018. 7.6. Laparotomy with revision of Canseco continent ileostomy partially slipped valve with excision of pelvic cyst and omental remnant and curetting and cauterization of chronic perineal and pilonidal sinus tracts January 10, 2019. ADDITIONAL INFORMATION: The patient presented with potassium 3.3 after hydration, it came to 4.3. White count 6700, hemoglobin 13.8. Chemistry stable within normal limits. Albumin 3.7. The patient will undergo endoscopy of her Canseco continent ileostomy and insertion of a dual lumen PICC line for stable venous access. She will then require surgical revision to correct her difficulty based on the endoscopic findings. Jose Aceves M.D. DR: FERNANDO JOB#: [id number] CC:
[2019-10-31 12:00] VITALS: BP 117/62
--- NOTE | 2019-10-31 13:36 | Brief Operative Note ---
Immediate Post Operative Note Operative Note Pre-op Diagnosis: malfunctioning Canseco pouch with inability to intubate Procedure: Canseco pouch endoscopy Post-op Diagnosis: angulation of valve segment Post-op Diagnosis: same as pre-op Findings: consistent w/pre-op dx studies Surgeon: farida Anesthesia: other - none Specimen: none Complications: none Condition: stable Fluids: none Estimated Blood Loss: none Drains: other - 26 Fr Malagon to Canseco pouch Implant(s) used?: No Jose Aceves MD Oct 31, 2019 13:36
--- NOTE | 2019-10-31 15:32 | Pre-Procedure Note/Attestation ---
Pre-Procedure Note/Attestation Complete Prior to Procedure Planned Procedure: not applicable Procedure Narrative: PICC Indications for Procedure Pre-Operative Diagnosis: needs predatory animal exterminator IV access Attestation I attest that I discussed the nature of the procedure; its benefits; risks and complications; and alternatives (and the risks and benefits of such alternatives ), prior to the procedure, with the patient (or the patient's legal student services representative). I attest that, if there was a reasonable possibility of needing a blood transfusion, the patient (or the patient's legal student services representative) was given the [facility] of Health Services standardized written summary, pursuant to the Francisco Javier Pema Blood Safety Act ([place] Health and Safety Code # 1645, as amended). I attest that I re-evaluated the patient just prior to the surgery and that there has been no change in the patient's H&P, except as documented below: Will Cee MD Oct 31, 2019 15:32
--- NOTE | 2019-10-31 15:33 | Brief Operative Note ---
Immediate Post Operative Note Operative Note Pre-op Diagnosis: needs long term care social worker IV access Procedure: PICC Post-op Diagnosis: same as pre-op Surgeon: Jose Armando Wilcox Anesthesia: local Specimen: none Complications: none Fluids: none Implant(s) used?: No Will Wilcox MD Oct 31, 2019 15:33
[2019-10-31 16:00] VITALS: BP 115/60
--- NOTE | 2019-10-31 16:14 | Procedure Note ---
DATE OF PROCEDURE: 10/31/2019 ENDOSCOPY PROCEDURE REPORT ENDOSCOPIST: Jose Aceves MD. ANESTHESIA: None. SEDATION: None. PRE-ENDOSCOPY DIAGNOSES: 1. Malfunctioning Canseco continent ileostomy with inability to catheterize. 2. History of ulcerative colitis. 3. Status post multiple operations including proctocolectomy and continent ileostomy with revision in December 2018. POST-ENDOSCOPY DIAGNOSES: 1. Malfunctioning Canseco continent ileostomy with inability to catheterize. 2. History of ulcerative colitis. 3. Status post multiple operations including proctocolectomy and continent ileostomy with revision in December 2018. ENDOSCOPY PERFORMED: Canseco continent ileostomy pouch endoscopy. DESCRIPTION OF PROCEDURE: The patient was positioned supine in the GI lab without any sedation or anesthesia given or required. I removed the indwelling 18-Irish Hemphill Sump nasogastric tube, which was placed at her home in [place] nearly two weeks ago when she could not catheterize to evacuate stool. I then used the GIF-P140 endoscope and entered the stoma. The access segment is straight, but there was a steep at least 90-degree angulation near the tip of the valve segment with the distance from the stoma orifice to the valve tip approximately 10 cm. The pouch itself is distensible and there is no evidence of pouchitis or ulcerations. Retroflexed views could not completely visualize the valve because of the patient's discomfort and . Withdrawal views confirmed the above findings. After removing the endoscope, I was able to fairly readily manipulated 26-Irish Malagon catheter into her pouch confirmed by irrigation, taped to the skin and connected to a gravity drainage bag. The patient will require surgical revision of her Canseco pouch valve angulation. She tolerated the endoscopy well. Jose Aceves M.D. DR: FERNANDO JOB#: [id number] CC:
--- NOTE | 2019-10-31 17:33 | Diagnostic Imaging Report ---
Indications: Needs long-term IV access Technique: Ultrasound confirms patent compressible left basilic vein. Total sterile technique, including sterile probe cover and sterile gel, hat, mask, sterile gown, large sterile drape, and preparation with 2% chlorhexidine utilized. Local anesthesia with 1% lidocaine. Under real-time ultrasound guidance, puncture basilic vein using 21-gauge needle, documented and archived, passage 0.018 guidewire under direct fluoroscopy, which was used to determine appropriate catheter length, exchange for 4 Rwandan peel-away sheath. 4 Rwandan Bard dual-lumen power PICC cut to 46 cm. It was inserted through the peel-away sheath. Peel-away sheath and guidewire removed. Catheter fixed to the skin. Both catheter ports aspirated and flushed. Patient tolerated procedure well, without immediate complication. Digital radiograph documents satisfactory catheter tip position, at the cavoatrial junction. Total fluoroscopy time 10.4 seconds. Total dose area product [id number] mGym2 Total number of images: 1 Impression: Successful placement of left arm PICC under sonographic and fluoroscopic guidance, as described above.
[2019-10-31 20:00] VITALS: BP 116/72
[2019-10-31] MEDS: Dyna-Hex 2% Top Sol 2oz TOPIC SCH (20:09)
[2019-11-01] VITALS: BP 96/58
[2019-11-01 04:00] VITALS: BP 99/63
[2019-11-01] MEDS: D5 1/2NS w/KCl 20mEq 1,000 ML IV SCH ×2 (04:35→13:13)
[2019-11-01 06:33] LABS: EOSINOPHILS % (AUTO) 6.7 % (0.0-3.0); HEMOGLOBIN 12.6 G/DL (12.0-16.0); LYMPHOCYTES % (AUTO) 37.6 % (20.0-45.0); MEAN CORPUSCULAR VOLUME 86 FL (80-99); MONOCYTES % (AUTO) 8.8 % (1.0-10.0); NEUTROPHILS % (AUTO) 44.9 % (45.0-75.0); PLATELET COUNT 305 K/UL (150-450); RED BLOOD COUNT 4.42 M/UL (4.20-5.40); RED CELL DISTRIBUTION WIDTH 11.8 % (11.6-14.8); WHITE BLOOD COUNT 6.5 K/UL (4.8-10.8)
[2019-11-01 07:07] LABS: ALANINE AMINOTRANSFERASE 33 U/L (12-78); ALBUMIN 3.5 G/DL (3.4-5.0); ALBUMIN/GLOBULIN RATIO 1.2 (1.0-2.7); ALKALINE PHOSPHATASE 39 U/L (46-116); ANION GAP 9 mmol/L (5-15); ASPARTATE AMINO TRANSFERASE 18 U/L (15-37); BILIRUBIN,TOTAL 0.6 MG/DL (0.2-1.0); BLOOD UREA NITROGEN 1 mg/dL (7-18); CALCIUM 8.8 MG/DL (8.5-10.1); CARBON DIOXIDE 26 MMOL/L (21-32); CHLORIDE 108 MMOL/L (98-107); CREATININE 0.7 MG/DL (0.55-1.30); PHOSPHORUS 3.8 MG/DL (2.5-4.9); POTASSIUM 3.6 MMOL/L (3.5-5.1); SODIUM 143 MMOL/L (136-145)
[2019-11-01 08:00] VITALS: BP 114/70
[2019-11-01] MEDS: ELMIRON 100 MG ORAL SCH ×3 (09:05→18:51)
[2019-11-01 12:00] VITALS: BP 112/71
--- NOTE | 2019-11-01 12:33 | General Progress Note ---
Progress Note Progress Note AVSS BCIr ileo catheter draining well Abdomen soft Urine 2700 BCIR fileo 120 Hgb 12.6 albumin 3.5 Imp: Malfunctioning Canseco continent ileostomy with inability to intubate Plan: bowel prep surgery in AM Full discussion re options (revise valve, new valve and stoma with possible relocation, possible gastrostomy) and risks (bleeding, infection, injury to adjacent structures or organs, DVT despite prophylaxis, recurrent difficulties with Canseco pouch and/or stoma, etc.; all questions answered Start IV antibiotics tonight Pre-op SQ heparin in AM Jose Aceves MD Nov 01, 2019 12:33
[2019-11-01] MEDS: Neomycin Sulfate 500mg Tab ORAL SCH ×3 (12:57→20:53)
[2019-11-01 16:00] VITALS: BP 129/80
[2019-11-01 20:00] VITALS: BP 112/74
[2019-11-01] MEDS: Dyna-Hex 2% Top Sol 2oz TOPIC SCH (20:53)
[2019-11-02] VITALS (14 sets, daily range): BP systolic 89–127; BP diastolic 46–79
[2019-11-02] MEDS: Ampicillin/Sulbactam Sod 3 GM in NS 110 ML IV SCH ×5 (00:29→23:31)
--- NOTE | 2019-11-02 07:27 | Anethesia Preoperative Eval ---
Anesthesia Pre-op PMH/ROS General Date of Evaluation: Nov 02, 2019 Time of Evaluation: 06:34 Anesthesiologist: Coleman ASA Score: ASA 2 Mallampati Score Class I : Soft palate, uvula, fauces, pillars visible Class II: Soft palate, uvula, fauces visible Class III: Soft palate, base of uvula visible Class IV: Only hard plate visible Mallampati Classification: Class II Surgeon: Yola Diagnosis: Malfunctionimg Canseco Pouch Surgical Procedure: Revision Malfunctionimg Canseco Pouch Anesthesia History: none Family History: no anesthesia problems Allergies: Coded Allergies: CODEINE (Verified Allergy, Unknown, 01/09/19) METOCLOPRAMIDE (Verified Allergy, Unknown, 01/09/19) SULFA (SULFONAMIDE ANTIBIOTICS) (Verified Allergy, Unknown, 01/09/19) SUTURE (Verified Allergy, Unknown, 01/09/19) VICRYL CIPROFLOXACIN (Verified Adverse Reaction, Unknown, 01/09/19) ANGRY, CRYING, VERY EMOTIONAL. Medications: see eMAR Patient NPO?: Yes Past Medical History Pulmonary: Reports: asthma Gastrointestinal/Genitourinary: Reports: other - Ulcerative Colitis Neurologic/Psychiatric: Reports: other - Fibromyalgia PSxH Narrative: 1. Malfunctioning Canseco continent ileostomy with inability to intubate her pouch. 2. History of ulcerative colitis. 3. History of depression. 4. History of interstitial cystitis. 5. History of asthma. 6. History of fibromyalgia. 7. STATUS POST MULTIPLE ABDOMINAL OPERATIONS: 7.1. Cholecystectomy. 7.2. section. 7.3. Abdominal colectomy and Kady ileostomy in 2013. 7.4. Canseco continent ileostomy and abdominal perineal proctectomy performed in [place] July 27, 2017. 7.5. Total abdominal hysterectomy with revision of Canseco continent ileostomy performed in [place] June 09, 2018. 7.6. Laparotomy with revision of Canseco continent ileostomy partially slipped valve with excision of pelvic cyst and omental remnant and curetting and cauterization of chronic perineal and pilonidal sinus tracts January 10, 2019. Anesthesia Pre-op Phys. Exam Physician Exam Last Vital Signs Date Time Temp Pulse Resp B/P (MAP) Pulse Ox O2 Delivery O2 Flow Rate FiO2 11/02/19 04:00 98.4 89 18 111/69 (83) 98 11/01/19 09:00 Room Air 11/01/19 08:22 21 Constitutional: NAD Neurologic: CN 2-12 intact Cardiovascular: RRR Respiratory: CTA Gastrointestinal: S/NT/ND Airway Exam Mallampati Score: Class II MO: full ROM: limited Teeth: missing, intact Anesthesia Pre-op A/P Labs Labs Test 10/30/19 14:14 10/31/19 05:30 11/01/19 04:00 White Blood Count 9.8 K/UL (4.8-10.8) 6.7 K/UL (4.8-10.8) 6.5 K/UL (4.8-10.8) Red Blood Count 5.10 M/UL (4.20-5.40) 4.88 M/UL (4.20-5.40) 4.42 M/UL (4.20-5.40) Hemoglobin 14.5 G/DL (12.0-16.0) 13.8 G/DL (12.0-16.0) 12.6 G/DL (12.0-16.0) Hematocrit 43.9 % (37.0-47.0) 42.2 % (37.0-47.0) 38.0 % (37.0-47.0) Mean Corpuscular Volume 86 FL (80-99) 86 FL (80-99) 86 FL (80-99) Mean Corpuscular Hemoglobin 28.5 PG (27.0-31.0) 28.3 PG (27.0-31.0) 28.6 PG (27.0-31.0) Mean Corpuscular Hemoglobin Concent 33.1 G/DL (32.0-36.0) 32.7 G/DL (32.0-36.0) 33.2 G/DL (32.0-36.0) Red Cell Distribution Width 11.8 % (11.6-14.8) 11.9 % (11.6-14.8) 11.8 % (11.6-14.8) Platelet Count 440 K/UL (150-450) 348 K/UL (150-450) 305 K/UL (150-450) Mean Platelet Volume 5.3 FL (6.5-10.1) 5.7 FL (6.5-10.1) 5.6 FL (6.5-10.1) Neutrophils (%) (Auto) 64.2 % (45.0-75.0) 47.2 % (45.0-75.0) 44.9 % (45.0-75.0) Lymphocytes (%) (Auto) 25.2 % (20.0-45.0) 34.4 % (20.0-45.0) 37.6 % (20.0-45.0) Monocytes (%) (Auto) 6.2 % (1.0-10.0) 9.9 % (1.0-10.0) 8.8 % (1.0-10.0) Eosinophils (%) (Auto) 2.7 % (0.0-3.0) 6.6 % (0.0-3.0) 6.7 % (0.0-3.0) Basophils (%) (Auto) 1.7 % (0.0-2.0) 1.9 % (0.0-2.0) 2.0 % (0.0-2.0) Prothrombin Time 11.9 SEC (9.30-11.50) 11.0 SEC (9.30-11.50) Prothromb Time International Ratio 1.1 (0.9-1.1) 1.0 (0.9-1.1) Activated Partial Thromboplast Time 34 SEC (23-33) 32 SEC (23-33) Urine Color Yellow Urine Appearance Clear Urine pH 5 (4.5-8.0) Urine Specific [place] 1.020 (1.005-1.035) Urine Protein Negative (NEGATIVE) Urine Glucose (UA) Negative (NEGATIVE) Urine Ketones 4+ (NEGATIVE) Urine Blood 3+ (NEGATIVE) Urine Nitrite Negative (NEGATIVE) Urine Bilirubin Negative (NEGATIVE) Urine Urobilinogen Normal MG/DL (0.0-1.0) Urine Leukocyte Esterase Negative (NEGATIVE) Urine RBC 2-4 /HPF (0 - 2) Urine WBC 0-2 /HPF (0 - 2) Urine Squamous Epithelial Cells Few /LPF (NONE/OCC) Urine Bacteria Occasional /HPF (NONE) Urine HCG, Qualitative Negative (NEGATIVE) Sodium Level 139 MMOL/L (136-145) 143 MMOL/L (136-145) 143 MMOL/L (136-145) Potassium Level 3.3 MMOL/L (3.5-5.1) 4.3 MMOL/L (3.5-5.1) 3.6 MMOL/L (3.5-5.1) Chloride Level 102 MMOL/L (98-107) 109 MMOL/L (98-107) 108 MMOL/L (98-107) Carbon Dioxide Level 23 MMOL/L (21-32) 25 MMOL/L (21-32) 26 MMOL/L (21-32) Anion Gap 14 mmol/L (5-15) 9 mmol/L (5-15) 9 mmol/L (5-15) Blood Urea Nitrogen 6 mg/dL (7-18) 3 mg/dL (7-18) 1 mg/dL (7-18) Creatinine 0.7 MG/DL (0.55-1.30) 0.7 MG/DL (0.55-1.30) 0.7 MG/DL (0.55-1.30) Estimat Glomerular Filtration Rate > 60 mL/min (>60) > 60 mL/min (>60) > 60 mL/min (>60) Glucose Level 82 MG/DL (74-106) 91 MG/DL (74-106) 79 MG/DL (74-106) Calcium Level 9.1 MG/DL (8.5-10.1) 8.7 MG/DL (8.5-10.1) 8.8 MG/DL (8.5-10.1) Total Bilirubin 0.9 MG/DL (0.2-1.0) 0.9 MG/DL (0.2-1.0) 0.6 MG/DL (0.2-1.0) Aspartate Amino Transf (AST/SGOT) 24 U/L (15-37) 18 U/L (15-37) 18 U/L (15-37) Alanine Aminotransferase (ALT/SGPT) 35 U/L (12-78) 30 U/L (12-78) 33 U/L (12-78) Alkaline Phosphatase 50 U/L (46-116) 38 U/L (46-116) 39 U/L (46-116) Total Protein 8.3 G/DL (6.4-8.2) 6.9 G/DL (6.4-8.2) 6.5 G/DL (6.4-8.2) Albumin 4.5 G/DL (3.4-5.0) 3.7 G/DL (3.4-5.0) 3.5 G/DL (3.4-5.0) Globulin 3.8 g/dL 3.2 g/dL 3.0 g/dL Albumin/Globulin Ratio 1.2 (1.0-2.7) 1.2 (1.0-2.7) 1.2 (1.0-2.7) Lipase 94 U/L (73-393) Phosphorus Level 3.8 MG/DL (2.5-4.9) Magnesium Level 2.0 MG/DL (1.8-2.4) Risk Assessment & Plan Assessment: ASA 2 Plan: GA Status Change Before Surgery: No Pre-Antibiotics Drug: Liam Barcenas MD Nov 02, 2019 07:27
[2019-11-02] MEDS ORDERED: fentaNYL 100 mcg/2 mL IV ONE ×3 (08:48→12:13)
[2019-11-02] MEDS: D5 1/2NS w/KCl 20mEq 1,000 ML IV SCH (08:55)
[2019-11-02] MEDS: ELMIRON 100 MG ORAL SCH ×4 (08:55→18:39)
[2019-11-02] MEDS ORDERED: Lidocaine 1% Plain 30 ml INJ ONE ×2 (08:56→10:39)
[2019-11-02] MEDS ORDERED: Heparin 5000 units/ml inj SUBQ ONE (10:00)
--- NOTE | 2019-11-02 11:41 | Pre-Procedure Note/Attestation ---
Pre-Procedure Note/Attestation Complete Prior to Procedure Planned Procedure: not applicable Procedure Narrative: laparotomy with revision of Canseco pouch, possible stoma relocation, possible gastrostomy Indications for Procedure Pre-Operative Diagnosis: malfunctioning Canseco pouch with inability to intubate Attestation I attest that I discussed the nature of the procedure; its benefits; risks and complications; and alternatives (and the risks and benefits of such alternatives ), prior to the procedure, with the patient (or the patient's legal security representative). I attest that, if there was a reasonable possibility of needing a blood transfusion, the patient (or the patient's legal security representative) was given the [place] [facility] standardized written summary, pursuant to the Francisco Javier Pema Blood Safety Act ([place] Health and Safety Code # 1645, as amended). I attest that I re-evaluated the patient just prior to the surgery and that there has been no change in the patient's H&P, except as documented below:none Jose Aceves MD Nov 02, 2019 11:41
[2019-11-02] MEDS ORDERED: Sterile Water Irrig 1000ml IRRIG ONE (12:00)
[2019-11-02] MEDS ORDERED: Ampicillin/Sulbactam Sod 3 GM in NS 110 ML IV SCH (12:00)
[2019-11-02] MEDS ORDERED: LR 1000ml ONE (12:00)
[2019-11-02] MEDS ORDERED: NeoSporin Gu Irrig 1ml Amp IRRIG ONE (12:09)
[2019-11-02] MEDS ORDERED: Bacitracin 50000 Units Vial ONE (12:09)
[2019-11-02] MEDS ORDERED: Rocuronium Bromide 50mg/5ml Inj IV ONE (12:12)
[2019-11-02] MEDS ORDERED: Midazolam 2mg/2ml Inj ONE ×2 (12:13→14:14)
[2019-11-02] MEDS ORDERED: Lidocaine 1% MPF 10mg/ml 5ml ONE (12:13)
[2019-11-02] MEDS ORDERED: NS Irrig 1000ml IRRIG ONE (13:00)
[2019-11-02] MEDS ORDERED: Ketorolac 30mg Inj ONE (13:02)
[2019-11-02] MEDS ORDERED: LR 1000ml 1,000 ML IVLG SCH (13:03)
--- NOTE | 2019-11-02 13:06 | Immediate Post-Op Evaluation ---
Immediate Post-Op Evalulation Immediate Post-Op Evalulation Procedure: REvision of hoang pouch Date of Evaluation: Nov 02, 2019 Time of Evaluation: 14:47 IV Fluids: 2L Blood Products: 0 Estimated Blood Loss: 50 Urinary Output: 150 Blood Pressure Systolic: 91 Blood Pressure Diastolic: 46 Pulse Rate: 90 Respiratory Rate: 16 O2 Sat by Pulse Oximetry: 100 Pain Score (1-10): 0 Nausea: No Vomiting: No Complications 0 Patient Status: awake, reacts, patent, none Hydration Status: adequate Drug: Flagyl and unasyn Given Within 1 Hr of Incision: Yes Leslie Zapata MD Nov 02, 2019 13:06
[2019-11-02] MEDS ORDERED: DiphenhydrAMINE 50mg/ml Inj IVP PRN ×2 (13:15→15:00)
[2019-11-02] MEDS ORDERED: Ketorolac 30mg Inj IV PRN (13:15)
[2019-11-02] MEDS ORDERED: LORazepam Inj 2mg/ml 1ml IV PRN (13:15)
[2019-11-02] MEDS ORDERED: Midazolam 2mg/2ml Inj IVP PRN (13:15)
[2019-11-02] MEDS ORDERED: Hydromorphone 0.5mg/0.5ml inj IVP PRN (13:15)
[2019-11-02] MEDS ORDERED: fentaNYL 100 mcg/2 mL IV PRN (13:15)
[2019-11-02] MEDS ORDERED: Surgicel 4in x 8in TOPIC ONE (14:25)
--- NOTE | 2019-11-02 14:46 | 48 Hour Post Anesthesia Eval ---
Post Anesthesia Evaluation Procedure: REvision of hoang pouch Date of Evaluation: Nov 02, 2019 Airway: patent Nausea: No Vomiting: No Hydration Status: adequate Cardiopulmonary Status: at baseline Mental Status/LOC: patient returned to baseline Post-Anesthesia Complications: 0 Follow-up care needed: N/A - further care as per primary team Leslie Zapata MD Nov 02, 2019 14:46
[2019-11-02] MEDS ORDERED: PCA HYDROmorphone 1mg/ml 30 ML IV PRN (14:52)
--- NOTE | 2019-11-02 14:56 | Brief Operative Note ---
Immediate Post Operative Note Operative Note Pre-op Diagnosis: malfunctioning Hoang continent ileostomy Procedure: revision of Hoang continent ileostomy valve and stoma Post-op Diagnosis: malfunctioning Hoang continent ileostomy Post-op Diagnosis: same as pre-op Findings: consistent w/pre-op dx studies Surgeon: farida Rover Tender: jose m Anesthesiologist: sylwia Anesthesia: general Specimen: yes - hoang pouch stoma Complications: none Condition: stable Fluids: see anesthesia record Estimated Blood Loss: volume - 50cc Drains: other - DIONNE to deep pelvis; 28 Malagon to Hoang Pouch Implant(s) used?: No Jose Aceves MD Nov 02, 2019 14:56
[2019-11-02] MEDS ORDERED: Rate Change PCA 1 Each MISC PRN (15:00)
[2019-11-02] MEDS ORDERED: PCA Education Pamphlet MISC ONE (15:00)
[2019-11-02] MEDS ORDERED: Naloxone 0.4mg/ml Inj IVP PRN (15:00)
[2019-11-02] MEDS ORDERED: HYDROmorphone 1mg/ml Carpuject SUBQ PRN (15:00)
[2019-11-02] MEDS: D5 1/4NS w/KCl 20mEq 1,000 ML IV SCH ×2 (17:44→23:31)
--- NOTE | 2019-11-02 18:29 | Operative Note - Dictated ---
DATE OF OPERATION: 11/02/2019 SURGEON: Dr. Jose Aceves MD. ADDITIONAL SURGEON: Mark Villarreal MD. ANESTHESIOLOGIST: Dr. Zapata. TYPE OF ANESTHESIA: General endotracheal. PREOPERATIVE DIAGNOSES: 1. 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 2. History of ulcerative colitis. 3. STATUS POST MULTIPLE ABDOMINAL OPERATIONS: 3.1. Cholecystectomy. 3.2. section. 3.3. Abdominal colectomy and Kady ileostomy in 2013. 3.4. Canseco continent ileostomy with abdomino-perineal proctectomy in July 2017. 3.5. Total abdominal hysterectomy with revision of Canseco continent ileostomy in May 2018 (All these operations were done in other states[place] 3.6. Laparotomy with revision of Canseco continent ileostomy, partial valve dessusception in December 2018. POSTOPERATIVE DIAGNOSES: 1. 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 2. History of ulcerative colitis. 3. STATUS POST MULTIPLE ABDOMINAL OPERATIONS: 3.1. Cholecystectomy. 3.2. section. 3.3. Abdominal colectomy and Kady ileostomy in 2013. 3.4. Canseco continent ileostomy with abdomino-perineal proctectomy in July 2017. 3.5. Total abdominal hysterectomy with revision of Canseco continent ileostomy in May 2018 (All these operations were done in other states). 3.6. Laparotomy with revision of Canseco continent ileostomy, partial valve dessusception in December 2018. OPERATION PERFORMED: Laparotomy with revision of Canseco continent ileostomy valve and stoma. DESCRIPTION OF PROCEDURE: The patient was taken to the operating room and under general anesthesia with sequential compression device stockings and Malagon catheter in place and having received preoperative intravenous antibiotics and subcutaneous heparin, she was prepped and draped in usual fashion. Previous lower midline incision was reopened from just above the umbilicus to the pubis, excising two areas of thick wide scar. There were almost no adhesions in the abdominal cavity. There were several collections of loculated peritoneal fluid in the pelvis and these were all evacuated. The pouch was elevated out of the pelvis. The afferent bowel identified was evident as I placed a 28-Moroccan Malagon through the stoma low in the right lower quadrant into the pouch that the access segment was very redundant. The afferent bowel was manually occluded and the pouch was distended with 500 mL of saline. Upon removing the catheter, there was no incontinence. The catheter was reintroduced and the pouch decompressed. The stoma was taken down with a transversely oriented elliptical incision and brought into the abdominal cavity. A pouch enterotomy was created and the nipple valve was readily identified and grasped. It was well formed measuring at least 5 cm. A row of debbie using the linear stapler 60 without the pin blue cartridge was utilized avoiding the mesentery stapling the valve. Then, several horizontal mattress sutures of 2-0 Prolene on SH needles were placed from the outer surface of the pouch through the valve and back out to help completely stabilize the valve and align it properly. The catheter could now be readily introduced into the apex of the pouch. Pouch was tested by manually occluding the afferent bowel distending the pouch with 450 mL of saline. There was no extravasation and when the catheter was removed, no incontinence. Catheter was reintroduced and the pouch decompressed. The areas of loculated fluid had been present at prior surgery and I felt it was advisable to put a drain. A large round Koko drain was placed into the deep pelvis, sutured to the skin with 2-0 nylon skin suture. Some bleeding from the epigastric artery was closed with 3-0 silk sutures from within the abdomen. The pouch in the bowel loops replaced anatomically with the pouch line transversely across the pelvis. The bladder and ureters had been protected. The collar was tightened with interrupted 3-0 silk sutures. The redundant access segment was brought back through the same site. I narrowed the skin opening medial and lateral with 4-0 Monocryl suture and then excised the redundancy and the stoma was primarily matured with continuous 2-0 chromic locking suture starting at the 3 and 9 o'clock positions. One additional [id number] was placed superiorly for complete hemostasis. A very satisfactory stoma was achieved. The catheter, 28-Moroccan Malagon was appropriately positioned in the apex of the pouch and sutured to the skin with two sutures of 2-0 silk. It was flushed and connected to gravity drainage bag. The abdomen and pelvis was carefully inspected and hemostasis was satisfactory. Midline incision was closed in one layer with #1 looped PDS. Antibiotic irrigation was utilized and skin closed with debbie. The pouch catheter was sutured in place with two sutures of 2-0 silk. The patient tolerated the procedure well and left the operating room in stable condition. Jose Aceves M.D. DR: YEVGENIY JOB#: [id number] CC:
[2019-11-02] MEDS: PCA shift volume MISC SCH (19:00)
[2019-11-02] MEDS: Dyna-Hex 2% Top Sol 2oz TOPIC SCH (20:13)
[2019-11-03] VITALS (7 sets, daily range): BP systolic 91–105; BP diastolic 57–66
[2019-11-03] MEDS: Ketorolac 30mg Inj IV PRN ×3 (02:38→23:55)
[2019-11-03] MEDS: Ampicillin/Sulbactam Sod 3 GM in NS 110 ML IV SCH ×4 (05:14→23:56)
[2019-11-03 07:01] LABS: ANION GAP 6 mmol/L (5-15); BLOOD UREA NITROGEN 3 mg/dL (7-18); CALCIUM 8.1 MG/DL (8.5-10.1); CARBON DIOXIDE 28 MMOL/L (21-32); CHLORIDE 104 MMOL/L (98-107); CREATININE 0.6 MG/DL (0.55-1.30); POTASSIUM 3.7 MMOL/L (3.5-5.1); SODIUM 138 MMOL/L (136-145)
[2019-11-03] MEDS: PCA shift volume MISC SCH ×2 (07:15→19:22)
[2019-11-03 07:36] LABS: BASOPHILS % (AUTO) 0.4 % (0.0-2.0); EOSINOPHILS % (AUTO) 0.2 % (0.0-3.0); HEMATOCRIT 35.1 % (37.0-47.0); HEMOGLOBIN 11.6 G/DL (12.0-16.0); LYMPHOCYTES % (AUTO) 9.7 % (20.0-45.0); MEAN CORPUSCULAR VOLUME 86 FL (80-99); MONOCYTES % (AUTO) 8.3 % (1.0-10.0); NEUTROPHILS % (AUTO) 81.4 % (45.0-75.0); PLATELET COUNT 305 K/UL (150-450); RED BLOOD COUNT 4.08 M/UL (4.20-5.40); RED CELL DISTRIBUTION WIDTH 11.7 % (11.6-14.8); WHITE BLOOD COUNT 13.5 K/UL (4.8-10.8)
[2019-11-03] MEDS: ELMIRON 100 MG ORAL SCH ×3 (08:54→18:46)
[2019-11-03] MEDS: D5 1/4NS w/KCl 20mEq 1,000 ML IV SCH ×3 (08:59→23:56)
[2019-11-03] MEDS ORDERED: Rate Change PCA 1 Each MISC PRN (09:00)
[2019-11-03] MEDS ORDERED: Naloxone 0.4mg/ml Inj IVP PRN (09:01)
--- NOTE | 2019-11-03 09:20 | General Progress Note ---
Progress Note Progress Note AVSS c/o pain and nausea - added Toradol IV and she stopped using OPERATIONS CHIEF dilaudid but continuous basal infusion going in. Tongue coated chest clear cor reg rhythm abdomen mild soft distention, incision clean, stoma pink, DIONNE in place LLQ overnight 12 hours: urine 400 BCIR ileo scant DIONNE 30 sang WBC 13,500 Hgb 11.6 BUN 3 Cr 0.6 Imp: Ileus with nausea Thrush Plan: continue NPO, Malagon, continuous drainage of Canseco pouch d/c basal infusion of OPERATIONS CHIEF fluconazole po daily and nystatin qid ambulate; f/u labs Jose Aceves MD Nov 03, 2019 09:20
[2019-11-03] MEDS ORDERED: DiphenhydrAMINE 50mg/ml Inj IVP PRN (09:30)
[2019-11-03] MEDS ORDERED: Albuterol ud Inhalation HHN PRN (09:30)
[2019-11-03] MEDS ORDERED: PCA HYDROmorphone 1mg/ml 30 ML IV PRN ×2 (09:30)
[2019-11-03] MEDS: Fluconazole 100mg tab ORAL SCH (09:56)
[2019-11-03] MEDS: Nystatin Susp 500,000 units/5ml ORAL SCH ×4 (09:56→20:10)
[2019-11-03] MEDS: LORazepam 1mg tab SL PRN (14:16)
[2019-11-03] MEDS ORDERED: NS Irrig 1000ml ONE (15:42)
[2019-11-03] MEDS ORDERED: Tubing IV Secondary IV ONE (15:42)
[2019-11-03] MEDS ORDERED: NS 500ML ONE (15:42)
[2019-11-03] MEDS: Dyna-Hex 2% Top Sol 2oz TOPIC SCH (20:10)
[2019-11-04] VITALS: BP 104/65
[2019-11-04 04:00] VITALS: BP 101/58
[2019-11-04] MEDS: Ampicillin/Sulbactam Sod 3 GM in NS 110 ML IV SCH ×4 (05:03→23:30)
[2019-11-04 05:43] LABS: EOSINOPHILS % (AUTO) 7.6 % (0.0-3.0); HEMATOCRIT 32.7 % (37.0-47.0); HEMOGLOBIN 10.9 G/DL (12.0-16.0); LYMPHOCYTES % (AUTO) 19.8 % (20.0-45.0); MEAN CORPUSCULAR VOLUME 87 FL (80-99); MONOCYTES % (AUTO) 10.7 % (1.0-10.0); NEUTROPHILS % (AUTO) 60.9 % (45.0-75.0); PLATELET COUNT 257 K/UL (150-450); RED BLOOD COUNT 3.78 M/UL (4.20-5.40); WHITE BLOOD COUNT 10.4 K/UL (4.8-10.8)
[2019-11-04 05:57] LABS: ALANINE AMINOTRANSFERASE 36 U/L (12-78); ALBUMIN 2.7 G/DL (3.4-5.0); ALKALINE PHOSPHATASE 34 U/L (46-116); ANION GAP 5 mmol/L (5-15); ASPARTATE AMINO TRANSFERASE 14 U/L (15-37); BILIRUBIN,TOTAL 0.5 MG/DL (0.2-1.0); BLOOD UREA NITROGEN 3 mg/dL (7-18); CALCIUM 8.2 MG/DL (8.5-10.1); CARBON DIOXIDE 29 MMOL/L (21-32); CHLORIDE 108 MMOL/L (98-107); CREATININE 0.7 MG/DL (0.55-1.30); PHOSPHORUS 2.4 MG/DL (2.5-4.9); POTASSIUM 3.7 MMOL/L (3.5-5.1); SODIUM 142 MMOL/L (136-145)
[2019-11-04] MEDS: PCA shift volume MISC SCH ×2 (07:15→19:00)
[2019-11-04 08:00] VITALS: BP 95/65
[2019-11-04] MEDS: Ketorolac 30mg Inj IV PRN ×3 (09:06→23:23)
[2019-11-04] MEDS: Fluconazole 100mg tab ORAL SCH (09:09)
[2019-11-04] MEDS: Nystatin Susp 500,000 units/5ml ORAL SCH ×4 (09:09→21:19)
[2019-11-04] MEDS: D5 1/4NS w/KCl 20mEq 1,000 ML IV SCH ×3 (09:10→21:33)
[2019-11-04] MEDS: ELMIRON 100 MG ORAL SCH ×3 (09:10→17:53)
[2019-11-04] MEDS ORDERED: NS Irrig 1000ml ONE (09:50)
[2019-11-04] MEDS ORDERED: Naloxone 0.4mg/ml Inj IVP PRN (09:55)
[2019-11-04] MEDS ORDERED: Rate Change PCA 1 Each MISC PRN (10:00)
[2019-11-04] MEDS ORDERED: PCA HYDROmorphone 1mg/ml 30 ML IV PRN (10:00)
[2019-11-04] MEDS ORDERED: ALPRAZolam 0.25mg tab ORAL PRN (10:00)
[2019-11-04] MEDS ORDERED: DiphenhydrAMINE 50mg/ml Inj IVP PRN (10:00)
--- NOTE | 2019-11-04 10:06 | General Progress Note ---
Progress Note Progress Note AVSS Ambulated in room. Feeling better today Abdomen soft, mild distention only, incision clean Urine 2100 BCIR ileo scant but now enteric fluid DIONNE 35cc sang WBC down 10,400 Hgb down 10.9 Phos 2.4 Mg 1.7 Imp: ileus Plan: Mg and phos infusions continue npo, colindres, continuous drainage of Canseco Pouch f/u labs with iron,b12 and folic acid levels Jose Aceves MD Nov 04, 2019 10:06
[2019-11-04 12:00] VITALS: BP 93/65
[2019-11-04] MEDS: Potassium Phosphate 15mm/250ml 250 ML IVPB SCH ×2 (12:57→18:58)
[2019-11-04 16:00] VITALS: BP 99/66
[2019-11-04 20:00] VITALS: BP 111/65
[2019-11-04] MEDS: Dyna-Hex 2% Top Sol 2oz TOPIC SCH (21:19)
[2019-11-04] MEDS: LORazepam 1mg tab SL PRN (22:21)
[2019-11-05] VITALS (7 sets, daily range): BP systolic 98–112; BP diastolic 66–76
[2019-11-05] MEDS: D5 1/4NS w/KCl 20mEq 1,000 ML IV SCH ×2 (05:34→15:29)
[2019-11-05] MEDS: Ampicillin/Sulbactam Sod 3 GM in NS 110 ML IV SCH ×3 (05:34→17:35)
[2019-11-05 07:16] LABS: BASOPHILS % (AUTO) 1.1 % (0.0-2.0); EOSINOPHILS % (AUTO) 10.7 % (0.0-3.0); HEMATOCRIT 32.4 % (37.0-47.0); MEAN CORPUSCULAR VOLUME 86 FL (80-99); MONOCYTES % (AUTO) 10.3 % (1.0-10.0); NEUTROPHILS % (AUTO) 53.9 % (45.0-75.0); PLATELET COUNT 248 K/UL (150-450); RED BLOOD COUNT 3.79 M/UL (4.20-5.40); RED CELL DISTRIBUTION WIDTH 11.9 % (11.6-14.8); WHITE BLOOD COUNT 8.9 K/UL (4.8-10.8)
[2019-11-05] MEDS: PCA shift volume MISC SCH ×2 (07:26→19:24)
[2019-11-05 07:34] LABS: ALANINE AMINOTRANSFERASE 27 U/L (12-78); ALBUMIN 2.7 G/DL (3.4-5.0); ALBUMIN/GLOBULIN RATIO 0.9 (1.0-2.7); ALKALINE PHOSPHATASE 33 U/L (46-116); ANION GAP 7 mmol/L (5-15); ASPARTATE AMINO TRANSFERASE 14 U/L (15-37); BILIRUBIN,TOTAL 0.4 MG/DL (0.2-1.0); BLOOD UREA NITROGEN 3 mg/dL (7-18); CALCIUM 7.9 MG/DL (8.5-10.1); CARBON DIOXIDE 26 MMOL/L (21-32); CHLORIDE 111 MMOL/L (98-107); CREATININE 0.6 MG/DL (0.55-1.30); PHOSPHORUS 3.1 MG/DL (2.5-4.9); POTASSIUM 4.1 MMOL/L (3.5-5.1); SODIUM 144 MMOL/L (136-145)
[2019-11-05 08:19] LABS: % IRON SATURATION 13 % (15-50); IRON 21 ug/dL (50-175); TOTAL IRON BINDING CAPACITY 162 ug/dL (250-450)
[2019-11-05] MEDS ORDERED: Vitamin B12 1000mcg/ml Inj IM SCH (09:00)
--- NOTE | 2019-11-05 09:07 | General Progress Note ---
Progress Note Progress Note AVSS Ambulates in hallways. 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
[2019-11-05] MEDS: Fluconazole 100mg tab ORAL SCH (09:08)
[2019-11-05] MEDS: ELMIRON 100 MG ORAL SCH ×3 (09:08→17:34)
[2019-11-05] MEDS: Ketorolac 30mg Inj IV PRN ×2 (09:08→17:56)
[2019-11-05] MEDS: Nystatin Susp 500,000 units/5ml ORAL SCH ×4 (09:08→21:58)
[2019-11-05] MEDS ORDERED: PCA HYDROmorphone 1mg/ml 30 ML IV PRN (10:00)
[2019-11-05] MEDS ORDERED: Naloxone 0.4mg/ml Inj IVP PRN (10:00)
[2019-11-05] MEDS ORDERED: DiphenhydrAMINE 50mg/ml Inj IVP PRN (10:00)
[2019-11-05] MEDS ORDERED: Rate Change PCA 1 Each MISC PRN (10:00)
[2019-11-05] MEDS: LORazepam 1mg tab SL PRN ×2 (14:07→22:18)
[2019-11-05] MEDS ORDERED: NS 275ml ONE (18:30)
[2019-11-05] MEDS ORDERED: NS Irrig 1000ml ONE (18:30)
[2019-11-05] MEDS ORDERED: Tubing IV Secondary IV ONE (19:27)
[2019-11-05] MEDS: Iron Sucrose 100 MG in NS 55 ML IV SCH (21:57)
[2019-11-05] MEDS: Dyna-Hex 2% Top Sol 2oz TOPIC SCH (21:57)
[2019-11-06] VITALS (7 sets, daily range): BP systolic 98–110; BP diastolic 63–75
[2019-11-06] MEDS: Ampicillin/Sulbactam Sod 3 GM in NS 110 ML IV SCH ×5 (00:09→23:17)
[2019-11-06] MEDS: D5 1/4NS w/KCl 20mEq 1,000 ML IV SCH ×3 (02:00→22:00)
[2019-11-06] MEDS: LORazepam 1mg tab SL PRN (02:36)
[2019-11-06] MEDS: Ketorolac 30mg Inj IV PRN ×3 (02:56→23:16)
[2019-11-06 06:01] LABS: BASOPHILS % (AUTO) 1.2 % (0.0-2.0); EOSINOPHILS % (AUTO) 10.9 % (0.0-3.0); LYMPHOCYTES % (AUTO) 15.8 % (20.0-45.0); MEAN CORPUSCULAR VOLUME 85 FL (80-99); NEUTROPHILS % (AUTO) 63.1 % (45.0-75.0); PLATELET COUNT 281 K/UL (150-450); RED BLOOD COUNT 3.87 M/UL (4.20-5.40); RED CELL DISTRIBUTION WIDTH 11.7 % (11.6-14.8); WHITE BLOOD COUNT 9.7 K/UL (4.8-10.8)
[2019-11-06 06:42] LABS: ALANINE AMINOTRANSFERASE 24 U/L (12-78); ALBUMIN 2.7 G/DL (3.4-5.0); ALBUMIN/GLOBULIN RATIO 0.8 (1.0-2.7); ALKALINE PHOSPHATASE 35 U/L (46-116); ANION GAP 8 mmol/L (5-15); ASPARTATE AMINO TRANSFERASE 15 U/L (15-37); BILIRUBIN,TOTAL 0.4 MG/DL (0.2-1.0); BLOOD UREA NITROGEN 3 mg/dL (7-18); CALCIUM 8.2 MG/DL (8.5-10.1); CARBON DIOXIDE 27 MMOL/L (21-32); CHLORIDE 109 MMOL/L (98-107); CREATININE 0.6 MG/DL (0.55-1.30); SODIUM 144 MMOL/L (136-145)
[2019-11-06] MEDS: PCA shift volume MISC SCH (07:17)
--- NOTE | 2019-11-06 08:28 | General Progress Note ---
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
[2019-11-06] MEDS ORDERED: Albuterol ud Inhalation HHN PRN (08:29)
[2019-11-06] MEDS: Fluconazole 100mg tab ORAL SCH (08:30)
[2019-11-06] MEDS: Nystatin Susp 500,000 units/5ml ORAL SCH ×4 (08:30→21:06)
[2019-11-06] MEDS ORDERED: oxyCODONE HCL/Acetaminophen 5/325mg ORAL PRN (08:30)
[2019-11-06] MEDS: ELMIRON 100 MG ORAL SCH ×3 (08:31→18:33)
[2019-11-06] MEDS ORDERED: Tubing IV Secondary IV ONE (15:31)
[2019-11-06] MEDS: Dyna-Hex 2% Top Sol 2oz TOPIC SCH (21:06)
[2019-11-06] MEDS ORDERED: Cathflo Alteplase 2mg Inj INJ SCH (22:00)
[2019-11-06] MEDS: Iron Sucrose 100 MG in NS 55 ML IV SCH (23:00)
[2019-11-07] VITALS (7 sets, daily range): BP systolic 96–107; BP diastolic 60–69
[2019-11-07] MEDS: D5 1/4NS w/KCl 20mEq 1,000 ML IV SCH ×3 (02:02→23:50)
[2019-11-07] MEDS: Ampicillin/Sulbactam Sod 3 GM in NS 110 ML IV SCH (05:07)
[2019-11-07 05:08] LABS: HEMATOCRIT 34.1 % (37.0-47.0); HEMOGLOBIN 11.5 G/DL (12.0-16.0); MEAN CORPUSCULAR VOLUME 85 FL (80-99); NEUTROPHILS % (AUTO) 60.1 % (45.0-75.0); PLATELET COUNT 337 K/UL (150-450); RED BLOOD COUNT 4.01 M/UL (4.20-5.40); RED CELL DISTRIBUTION WIDTH 11.5 % (11.6-14.8); WHITE BLOOD COUNT 10.8 K/UL (4.8-10.8)
[2019-11-07 05:12] LABS: ANION GAP 7 mmol/L (5-15); BLOOD UREA NITROGEN 4 mg/dL (7-18); CALCIUM 8.8 MG/DL (8.5-10.1); CARBON DIOXIDE 28 MMOL/L (21-32); CHLORIDE 102 MMOL/L (98-107); CREATININE 0.7 MG/DL (0.55-1.30); POTASSIUM 3.5 MMOL/L (3.5-5.1); SODIUM 137 MMOL/L (136-145)
[2019-11-07] MEDS: Ketorolac 30mg Inj IV PRN ×3 (07:56→20:55)
--- NOTE | 2019-11-07 08:47 | General Progress Note ---
Progress Note Progress Note AVSS Thrush is worse despite meds otherwise doing well Abdomen soft, incision and stoma healing nicely Urine 2325 voiding BCIR ileo 755 WBC 10,800 Hgb 11.5 BUN 4 Cr 0.7 Imp: Ileus resolved Thrush Plan; clear liquid diet d/c antibiotics fluconazole IV maintain continuous drainage of Canseco Pouch Jose Aceves MD Nov 07, 2019 08:46
[2019-11-07] MEDS: Nystatin Susp 500,000 units/5ml ORAL SCH ×4 (09:16→20:52)
[2019-11-07] MEDS: ELMIRON 100 MG ORAL SCH ×3 (09:16→17:44)
[2019-11-07] MEDS: Dyna-Hex 2% Top Sol 2oz TOPIC SCH (20:52)
[2019-11-07] MEDS: Iron Sucrose 100 MG in NS 55 ML IV SCH (20:53)
[2019-11-08 03:39] VITALS: BP 101/66
[2019-11-08] MEDS: Ketorolac 30mg Inj IV PRN ×3 (03:43→23:39)
[2019-11-08 06:45] LABS: BASOPHILS % (AUTO) 1.1 % (0.0-2.0); EOSINOPHILS % (AUTO) 10.8 % (0.0-3.0); HEMATOCRIT 33.9 % (37.0-47.0); HEMOGLOBIN 11.3 G/DL (12.0-16.0); LYMPHOCYTES % (AUTO) 20.3 % (20.0-45.0); MEAN CORPUSCULAR VOLUME 85 FL (80-99); MONOCYTES % (AUTO) 9.8 % (1.0-10.0); PLATELET COUNT 344 K/UL (150-450); RED BLOOD COUNT 3.98 M/UL (4.20-5.40); RED CELL DISTRIBUTION WIDTH 11.7 % (11.6-14.8); WHITE BLOOD COUNT 9.6 K/UL (4.8-10.8)
[2019-11-08 07:07] LABS: ANION GAP 9 mmol/L (5-15); BLOOD UREA NITROGEN 4 mg/dL (7-18); CALCIUM 8.8 MG/DL (8.5-10.1); CARBON DIOXIDE 27 MMOL/L (21-32); CHLORIDE 105 MMOL/L (98-107); CREATININE 0.7 MG/DL (0.55-1.30); POTASSIUM 3.8 MMOL/L (3.5-5.1); SODIUM 141 MMOL/L (136-145)
[2019-11-08 08:00] VITALS: BP 103/73
[2019-11-08] MEDS: Nystatin Susp 500,000 units/5ml ORAL SCH ×4 (09:12→22:50)
[2019-11-08] MEDS: ELMIRON 100 MG ORAL SCH ×3 (09:12→18:00)
[2019-11-08] MEDS: D5 1/4NS w/KCl 20mEq 1,000 ML IV SCH ×2 (10:12→22:08)
[2019-11-08 12:00] VITALS: BP 115/81
--- NOTE | 2019-11-08 12:07 | General Progress Note ---
Progress Note Progress Note AVSS Tolerated clear liquids but had incisional pain and some nausea ABdomen soft, incision clean, stoma stable Urine 2725 BCIR ileo 1090 DIONNE 25cc labs all stable Imp: Improved but persistent incisional pain Plan; full liquid diet maintain continuous drainage of Canseco pouch Jose Aceves MD Nov 08, 2019 12:07
[2019-11-08] MEDS ORDERED: NS Irrig 1000ml ONE (13:45)
[2019-11-08] MEDS ORDERED: Tubing IV Secondary IV ONE (13:45)
[2019-11-08 16:00] VITALS: BP 92/63
[2019-11-08 20:00] VITALS: BP 97/62
[2019-11-08] MEDS: Dyna-Hex 2% Top Sol 2oz TOPIC SCH (22:49)
[2019-11-08] MEDS: Iron Sucrose 100 MG in NS 55 ML IV SCH (22:50)
[2019-11-09] VITALS: BP 97/62
[2019-11-09 04:00] VITALS: BP 99/63
[2019-11-09] MEDS: Ketorolac 30mg Inj IV PRN ×3 (06:06→21:09)
[2019-11-09 07:50] VITALS: BP 100/65
--- NOTE | 2019-11-09 08:43 | General Progress Note ---
Progress Note Progress Note AVSS tolerating full liquid diet. Refractory thrush despite multiple meds Abdomen soft, healing nicely Urine 1890 BCIR ileo 1015 DIONNE drain 22 Imp: improved but refractory oral tisha Plan: BCIR diet d/c IV fluids ID consultation Jose Aceves MD Nov 09, 2019 08:43
[2019-11-09] MEDS ORDERED: ALPRAZolam 0.25mg tab ORAL PRN (08:45)
[2019-11-09] MEDS ORDERED: LORazepam 1mg tab SL PRN (08:45)
[2019-11-09] MEDS: ELMIRON 100 MG ORAL SCH ×3 (09:00→18:17)
[2019-11-09] MEDS ORDERED: Albuterol ud Inhalation HHN PRN (09:00)
[2019-11-09] MEDS ORDERED: HYDROmorphone 1mg/ml Carpuject SUBQ PRN (09:00)
[2019-11-09] MEDS: Nystatin Susp 500,000 units/5ml ORAL SCH ×4 (09:40→21:49)
[2019-11-09 12:00] VITALS: BP 94/59
[2019-11-09] MEDS ORDERED: Tubing IV Secondary IV ONE (13:36)
[2019-11-09] MEDS ORDERED: NS Irrig 1000ml ONE (13:36)
--- NOTE | 2019-11-09 14:23 | Infectious Diseases Prog Note ---
Assessment/Plan Assessment/Plan Full consult dictated: A) 1) refractory thrush - on oral nystatin and diflucan 200 mg daily 2) s/p Canseco ileostomy revision 3) pmh noted 4) allergies - ciprofloxacin and sulfa noted P) 1) double diflucan dose to 400 mg daily iv with nystatin 2) if no improvement then consider oral voriconazole, oral itraconazole or micafungin iv 3) posaconazole also option but not available at hospital 4) d/w Dr. Aceves 5) thank you Subjective Allergies: Coded Allergies: CODEINE (Verified Allergy, Unknown, 01/09/19) METOCLOPRAMIDE (Verified Allergy, Unknown, 01/09/19) SULFA (SULFONAMIDE ANTIBIOTICS) (Verified Allergy, Unknown, 01/09/19) SUTURE (Verified Allergy, Unknown, 01/09/19) VICRYL CIPROFLOXACIN (Verified Adverse Reaction, Unknown, 01/09/19) ANGRY, CRYING, VERY EMOTIONAL. Objective Last 24 Hour Vital Signs Date Time Temp Pulse Resp B/P (MAP) Pulse Ox O2 Delivery O2 Flow Rate FiO2 11/09/19 12:00 98.2 71 16 94/59 (71) 100 11/09/19 12:00 98.2 71 16 94/59 (71) 100 11/09/19 09:00 Room Air 11/09/19 07:50 98.2 74 18 100/65 (77) 98 11/09/19 04:00 97.5 81 17 99/63 (75) 97 11/09/19 00:00 98.5 83 18 97/62 (74) 99 11/08/19 21:00 Room Air 11/08/19 20:00 98.4 81 18 97/62 (74) 97 11/08/19 18:06 98.7 11/08/19 17:54 90 18 100 Room Air 85 18 97 11/08/19 17:43 85 18 97 Room Air 21 11/08/19 16:00 98.7 97 18 92/63 (73) 96 Height (Feet): 5 Height (Inches): 4.00 Weight (Pounds): 145 Current Medications Medications (Trade) Dose Ordered Sig/Pat Route PRN Reason Start Time Stop Time Status Last Admin Dose Admin Acetaminophen (Tylenol) 650 mg Q4H PRN ORAL Mild Pain or temp over 100.2 11/02/19 15:00 12/02/19 14:59 Albuterol Sulfate (Proventil) 2.5 mg Q4H PRN HHN Shortness of Breath 11/09/19 09:00 11/14/19 08:59 Alprazolam (Xanax) 0.25 mg TIDPRN PRN ORAL ANXIETY 11/09/19 08:45 11/16/19 08:44 Cetirizine HCl (ZyrTEC) 10 mg Q24H ORAL 11/04/19 09:15 01/30/20 10:59 11/09/19 09:41 Chlorhexidine Gluconate (Asia-Hex 2%) 1 applic DAILY@2000 TOPIC 10/30/19 20:00 01/28/20 19:59 11/08/19 22:49 Folic Acid (Folate) 1 mg DAILY ORAL 11/05/19 09:00 12/05/19 08:59 11/09/19 09:41 Hydromorphone HCl (Dilaudid) 1 mg Q4H PRN SUBQ Severe Breakthru Pain (>7) 11/09/19 09:00 11/16/19 08:59 Iron Sucrose 100 mg/Sodium Chloride 60 ml @ 240 mls/hr BEDTIME IV 11/05/19 21:00 11/09/19 21:14 11/08/19 22:50 Ketorolac Tromethamine (Toradol 30mg) 30 mg Q6H PRN IV severe pain 7-10 11/09/19 12:00 11/14/19 11:59 Lamotrigine (LaMICtal) 200 mg QHS ORAL 10/30/19 21:00 11/29/19 20:59 11/08/19 22:50 Lorazepam (Ativan) 1 mg Q4H PRN SL Muscle Spasm 11/09/19 08:45 11/16/19 08:44 Nystatin (Nystatin) 5 ml QID ORAL 11/09/19 09:00 11/16/19 08:59 11/09/19 13:01 Ondansetron HCl (Zofran) 4 mg Q4HR PRN IVP Nausea & Vomiting 11/08/19 22:45 12/08/19 22:44 11/08/19 22:49 Oxycodone/ Acetaminophen (Percocet 5-325) 1 tab Q4H PRN ORAL Moderate Pain (Pain Scale 4-6) 11/06/19 08:30 11/13/19 08:29 11/06/19 13:51 Patient Own Medication (Patient's Own Med) 1 ea QIDPRN PRN ORAL burning with urination 10/30/19 18:15 11/29/19 18:14 Patient Own Medication (Patient's Own Med) 1 ea TID ORAL 11/09/19 13:00 12/09/19 12:59 11/09/19 13:01 Starla Liriano MD Nov 09, 2019 14:23
[2019-11-09] MEDS ORDERED: NS 275ml ONE (15:37)
[2019-11-09 16:00] VITALS: BP 102/63
[2019-11-09 20:00] VITALS: BP 94/55
[2019-11-09] MEDS: Iron Sucrose 100 MG in NS 55 ML IV SCH (21:49)
[2019-11-09] MEDS: Dyna-Hex 2% Top Sol 2oz TOPIC SCH (21:50)
[2019-11-10 04:00] VITALS: BP 111/69
[2019-11-10 06:00] VITALS: BP 111/69
[2019-11-10] MEDS: Ketorolac 30mg Inj IV PRN ×2 (06:02→13:36)
[2019-11-10 06:19] LABS: BASOPHILS % (AUTO) 1.6 % (0.0-2.0); EOSINOPHILS % (AUTO) 7.7 % (0.0-3.0); HEMATOCRIT 37.1 % (37.0-47.0); HEMOGLOBIN 12.3 G/DL (12.0-16.0); LYMPHOCYTES % (AUTO) 12.8 % (20.0-45.0); MEAN CORPUSCULAR VOLUME 86 FL (80-99); MONOCYTES % (AUTO) 9.9 % (1.0-10.0); PLATELET COUNT 426 K/UL (150-450); RED BLOOD COUNT 4.33 M/UL (4.20-5.40); WHITE BLOOD COUNT 13.1 K/UL (4.8-10.8)
[2019-11-10 07:15] LABS: ALANINE AMINOTRANSFERASE 27 U/L (12-78); ALBUMIN 3.2 G/DL (3.4-5.0); ALBUMIN/GLOBULIN RATIO 0.9 (1.0-2.7); ALKALINE PHOSPHATASE 51 U/L (46-116); ANION GAP 9 mmol/L (5-15); ASPARTATE AMINO TRANSFERASE 20 U/L (15-37); BILIRUBIN,TOTAL 0.3 MG/DL (0.2-1.0); BLOOD UREA NITROGEN 6 mg/dL (7-18); CALCIUM 8.9 MG/DL (8.5-10.1); CARBON DIOXIDE 26 MMOL/L (21-32); CHLORIDE 105 MMOL/L (98-107); CREATININE 0.9 MG/DL (0.55-1.30); PHOSPHORUS 3.9 MG/DL (2.5-4.9); POTASSIUM 4.4 MMOL/L (3.5-5.1); SODIUM 140 MMOL/L (136-145)
[2019-11-10 08:00] VITALS: BP 94/57
[2019-11-10] MEDS: ELMIRON 100 MG ORAL SCH ×3 (08:42→17:55)
[2019-11-10] MEDS: Nystatin Susp 500,000 units/5ml ORAL SCH ×4 (08:43→20:36)
--- NOTE | 2019-11-10 09:07 | General Progress Note ---
Progress Note Progress Note AVSS Feels well and tolerating BCIR diet. Refractroy thrush is better after ID interventions. Abdomen soft, healing nicely, DIONNE drain removed Urine 2024 BCIR ileo 765 DIONNE 10cc WBC up 13,100 Hgb 12.3 albumin up 3.2 Imp: Leukocytosis ? etiology Plan: U/A and urine C&S blood cultures via PICC if any fever maintain continuous drainage of Canseco Pouch Jose Aceves MD Nov 10, 2019 09:07
[2019-11-10 10:42] LABS: APPEARANCE,URINE CLEAR; BILIRUBIN, URINE NEGATIVE (NEGATIVE); GLUCOSE, URINE (UA) NEGATIVE (NEGATIVE); KETONES,URINE NEGATIVE (NEGATIVE); LEUKOCYTE ESTERASE ,URINE 1+ (NEGATIVE); NITRITE,URINE NEGATIVE (NEGATIVE); PH,URINE 5 (4.5-8.0); PROTEIN,URINE NEGATIVE (NEGATIVE); UROBILINOGEN,URINE NORMAL MG/DL (0.0-1.0)
[2019-11-10 10:57] LABS: COLOR,URINE YELLOW
[2019-11-10 11:58] VITALS: BP 111/64
[2019-11-10] MEDS ORDERED: Cathflo Alteplase 2mg Inj INJ SCH (15:00)
[2019-11-10 16:00] VITALS: BP 113/61
--- NOTE | 2019-11-10 17:46 | Infectious Diseases Prog Note ---
Assessment/Plan Assessment/Plan A) 1) refractory thrush - on oral nystatin and diflucan 200 mg daily 2) s/p Canseco ileostomy revision 3) pmh noted 4) allergies - ciprofloxacin and sulfa noted 5) leukocytosis noted P) 1) double diflucan dose to 400 mg daily iv with nystatin - clinically improved 2) if no improvement then consider oral voriconazole, oral itraconazole or micafungin iv 3) posaconazole also option but not available at hospital 4) d/w Dr. Aceves 5) monitor leukocytosis - blood cultures if febrile, has picc line, may need CT imaging if persists Subjective Constitutional: Denies: fever, fatigue HEENT: Denies: congestion Respiratory: Denies: shortness of breath Cardiovascular: Denies: chest pain Gastrointestinal/Abdominal: Denies: nausea, vomiting Allergies: Coded Allergies: CODEINE (Verified Allergy, Unknown, 01/09/19) METOCLOPRAMIDE (Verified Allergy, Unknown, 01/09/19) SULFA (SULFONAMIDE ANTIBIOTICS) (Verified Allergy, Unknown, 01/09/19) SUTURE (Verified Allergy, Unknown, 01/09/19) VICRYL CIPROFLOXACIN (Verified Adverse Reaction, Unknown, 01/09/19) ANGRY, CRYING, VERY EMOTIONAL. Objective Last 24 Hour Vital Signs Date Time Temp Pulse Resp B/P (MAP) Pulse Ox O2 Delivery O2 Flow Rate FiO2 11/10/19 11:58 98.8 86 17 111/64 (80) 99 11/10/19 09:00 Room Air 11/10/19 08:00 98.9 87 18 94/57 (69) 97 11/10/19 06:00 98.4 89 17 111/69 (83) 98 11/10/19 04:00 98.4 80 17 111/69 (83) 98 11/09/19 21:00 Room Air 11/09/19 20:00 98.2 80 18 94/55 (68) 100 Height (Feet): 5 Height (Inches): 4.00 Weight (Pounds): 145 General Appearance: no acute distress HEENT: normocephalic, atraumatic, anicteric, thrush - less Respiratory/Chest: lungs clear, normal breath sounds, no respiratory distress Cardiovascular: normal rate, regular rhythm, no gallop/murmur Abdomen: normal bowel sounds, soft, non tender, no organomegaly Laboratory Tests Test 11/10/19 05:20 11/10/19 10:10 White Blood Count 13.1 K/UL (4.8-10.8) H Red Blood Count 4.33 M/UL (4.20-5.40) Hemoglobin 12.3 G/DL (12.0-16.0) Hematocrit 37.1 % (37.0-47.0) Mean Corpuscular Volume 86 FL (80-99) Mean Corpuscular Hemoglobin 28.4 PG (27.0-31.0) Mean Corpuscular Hemoglobin Concent 33.2 G/DL (32.0-36.0) Red Cell Distribution Width 12.0 % (11.6-14.8) Platelet Count 426 K/UL (150-450) Mean Platelet Volume 5.4 FL (6.5-10.1) L Neutrophils (%) (Auto) 68.0 % (45.0-75.0) Lymphocytes (%) (Auto) 12.8 % (20.0-45.0) L Monocytes (%) (Auto) 9.9 % (1.0-10.0) Eosinophils (%) (Auto) 7.7 % (0.0-3.0) H Basophils (%) (Auto) 1.6 % (0.0-2.0) Sodium Level 140 MMOL/L (136-145) Potassium Level 4.4 MMOL/L (3.5-5.1) Chloride Level 105 MMOL/L (98-107) Carbon Dioxide Level 26 MMOL/L (21-32) Anion Gap 9 mmol/L (5-15) Blood Urea Nitrogen 6 mg/dL (7-18) L Creatinine 0.9 MG/DL (0.55-1.30) Estimat Glomerular Filtration Rate > 60 mL/min (>60) Glucose Level 99 MG/DL (74-106) Calcium Level 8.9 MG/DL (8.5-10.1) Phosphorus Level 3.9 MG/DL (2.5-4.9) Magnesium Level 2.1 MG/DL (1.8-2.4) Total Bilirubin 0.3 MG/DL (0.2-1.0) Aspartate Amino Transf (AST/SGOT) 20 U/L (15-37) Alanine Aminotransferase (ALT/SGPT) 27 U/L (12-78) Alkaline Phosphatase 51 U/L (46-116) Total Protein 6.9 G/DL (6.4-8.2) Albumin 3.2 G/DL (3.4-5.0) L Globulin 3.7 g/dL Albumin/Globulin Ratio 0.9 (1.0-2.7) L Urine Color Yellow Urine Appearance Clear Urine pH 5 (4.5-8.0) Urine Specific Tebbetts 1.015 (1.005-1.035) Urine Protein Negative (NEGATIVE) Urine Glucose (UA) Negative (NEGATIVE) Urine Ketones Negative (NEGATIVE) Urine Blood 4+ (NEGATIVE) H Urine Nitrite Negative (NEGATIVE) Urine Bilirubin Negative (NEGATIVE) Urine Urobilinogen Normal MG/DL (0.0-1.0) Urine Leukocyte Esterase 1+ (NEGATIVE) H Urine RBC 2-4 /HPF (0 - 2) H Urine WBC 0-2 /HPF (0 - 2) Urine Squamous Epithelial Cells Few /LPF (NONE/OCC) Urine Bacteria Few /HPF (NONE) Current Medications Medications (Trade) Dose Ordered Sig/Pat Route PRN Reason Start Time Stop Time Status Last Admin Dose Admin Acetaminophen (Tylenol) 650 mg Q4H PRN ORAL Mild Pain or temp over 100.2 11/02/19 15:00 12/02/19 14:59 Albuterol Sulfate (Proventil) 2.5 mg Q4H PRN HHN Shortness of Breath 11/09/19 09:00 11/14/19 08:59 Alprazolam (Xanax) 0.25 mg TIDPRN PRN ORAL ANXIETY 11/09/19 08:45 11/16/19 08:44 Cetirizine HCl (ZyrTEC) 10 mg Q24H ORAL 11/04/19 09:15 01/30/20 10:59 11/10/19 08:42 Chlorhexidine Gluconate (Asia-Hex 2%) 1 applic DAILY@2000 TOPIC 10/30/19 20:00 01/28/20 19:59 11/09/19 21:50 Fluconazole/ Sodium Chloride 200 ml @ 100 mls/hr Q24H IV 11/10/19 09:00 11/17/19 08:59 11/10/19 08:43 Folic Acid (Folate) 1 mg DAILY ORAL 11/05/19 09:00 12/05/19 08:59 11/10/19 08:43 Hydromorphone HCl (Dilaudid) 1 mg Q4H PRN SUBQ Severe Breakthru Pain (>7) 11/09/19 09:00 11/16/19 08:59 Ketorolac Tromethamine (Toradol 30mg) 30 mg Q6H PRN IV severe pain 7-10 11/09/19 12:00 11/14/19 11:59 11/10/19 13:36 Lamotrigine (LaMICtal) 200 mg QHS ORAL 10/30/19 21:00 11/29/19 20:59 11/09/19 21:49 Lorazepam (Ativan) 1 mg Q4H PRN SL Muscle Spasm 11/09/19 08:45 11/16/19 08:44 Nystatin (Nystatin) 5 ml QID ORAL 11/09/19 09:00 11/16/19 08:59 11/10/19 12:03 Ondansetron HCl (Zofran) 4 mg Q4HR PRN IVP Nausea & Vomiting 11/08/19 22:45 12/08/19 22:44 11/09/19 21:56 Oxycodone/ Acetaminophen (Percocet 5-325) 1 tab Q4H PRN ORAL Moderate Pain (Pain Scale 4-6) 11/06/19 08:30 11/13/19 08:29 11/06/19 13:51 Patient Own Medication (Patient's Own Med) 1 ea QIDPRN PRN ORAL burning with urination 10/30/19 18:15 11/29/19 18:14 Patient Own Medication (Patient's Own Med) 1 ea TID ORAL 11/09/19 13:00 12/09/19 12:59 11/10/19 12:03 Starla Liriano MD Nov 10, 2019 17:46
[2019-11-10 20:00] VITALS: BP 101/55
[2019-11-10] MEDS: Dyna-Hex 2% Top Sol 2oz TOPIC SCH (20:35)
--- NOTE | 2019-11-10 21:14 | Consultation ---
DATE OF CONSULTATION: 11/10/2019 INFECTIOUS DISEASE CONSULTATION CONSULTING PHYSICIAN: Starla Liriano MD. ATTENDING PHYSICIAN: Jose Aceves MD. REFERRING PHYSICIAN: Jose Aceves MD. REASON FOR CONSULTATION: Refractory thrush and leukocytosis. CHIEF COMPLAINT: The patient's chief complaint coming in the hospital is malfunction Canseco ileostomy. HISTORY OF PRESENT ILLNESS: This is a very pleasant 34-year-old female, who has a history of multiple medical problems and multiple abdominal surgeries. She has history of Canseco continent ileostomy and she presents to [facility] with malfunction Canseco ileostomy. The patient could not intubate her pouch. The patient is status post laparotomy and revision of Canseco continent ileostomy valve and stoma. This was done on 11/02/2019. The patient has thrush and was given Diflucan at 200 mg a day and nystatin orally. The patient's thrush did not improve. The patient does have a leukocytosis now, but no fevers. Infectious Disease consultation is requested because of the refractory thrush and also leukocytosis today. I saw the patient yesterday and I doubled her Diflucan and clinically she is improving today with regards to thrush. She feels less fuzzy feeling on the tongue and clinically it is improved. The patient is on Diflucan and nystatin, Diflucan is 400 mg a day. MAR was noted. Orders were noted. Notes and records were reviewed. Case was discussed with Dr. Aceves, the patient, and the RN. REVIEW OF SYSTEMS: CONSTITUTIONAL: The patient has no fever, chills, or night sweats. HEAD AND NECK: Her thrush is improved today, less sensation on the tongue with regards to her thrush. She has no headache or neck stiffness. No fever, chills, or night sweats. CARDIAC: No chest pain. GASTROINTESTINAL: No abdominal pain, nausea, or vomiting. GENITOURINARY: She has no Malagon. No CVA tenderness. No urinary symptoms. PULMONARY: No cough, congestion, or breath. SKIN: No rash. EXTREMITIES: No pain. NEUROLOGICAL: No seizures. PAST MEDICAL HISTORY: The patient has a past medical history of Canseco continent ileostomy. She has a history of asthma, which she takes inhaler. She has a history of anxiety. She has history of pouchitis, history of depression, history of bladder spasms. No history of diabetes or hypertension. She also has history of ulcerative colitis, fibromyalgia, multiple abdominal surgeries including cholecystectomy, section, and colectomy. ALLERGIES: Include Cipro, codeine, metoclopramide, sulfa, and sutures. It looks like she has tolerated cephalosporins and clindamycin in the past. SOCIAL HISTORY: Negative for smoking, alcohol, or drug abuse. FAMILY HISTORY: Noncontributory. Negative for tuberculosis or cancer. MEDICATIONS: Upon reviewing the MAR, she is on following medications. She is on Diflucan. She is on ketorolac and nystatin. I increased Diflucan to 400 mg a day yesterday. She is on nystatin orally. She is on hydromorphone, albuterol, alprazolam, lorazepam, Zofran, oxycodone. I believe, she was on perioperative antibiotics, but not currently. She is on folate, Zyrtec, Tylenol, lamotrigine or Lamictal. She gets her own medications. Outside medications noted and reconciliated. PHYSICAL EXAMINATION: VITAL SIGNS: Temperature 98.8, pulse rate 86, respiratory rate 18, and blood pressure 111/64. Saturation 99% on room air. GENERAL: Alert, responsive, oriented x3. Nontoxic. HEAD AND NECK: Oral exam, she has some thrush, but it has improved versus yesterday. No icterus. Normocephalic. Neck is supple. HEART: Regular. No gallop or murmur. No friction rub. ABDOMEN: Soft. Positive bowel sounds. She does not seem to be tender. LUNGS: Clear bilaterally. No rhonchi or rales SKIN: No rash or dermatitis. MUSCULOSKELETAL: No effusion. Legs are without cellulitis. PERIPHERAL VASCULAR: No gangrene. LINE SITES: Without phlebitis. GENITOURINARY: No Malagon. She has no CVA tenderness. NEUROLOGIC: Intact. Nonfocal. Alert and oriented x3. LABORATORY DATA: White count 13.1 and hemoglobin 12.3. Creatinine is 0.9. UA is benign with 0 to 2 white cells. Followup laboratories have been ordered. IMAGING STUDIES: Initial chest x-ray showed no acute disease. ASSESSMENT AND PLAN: 1. The patient has refractory thrush. The patient was seen yesterday and Diflucan was increased from 200 mg a day to 400 mg a day. This seems to have worked at this time with thrush is better today on Diflucan 400 mg a day. We will continue with Diflucan 400 mg a day along with oral nystatin. Hopefully, if she continues to improve, then we can switch to oral. Currently, she is on IV therapy of IV Diflucan. If she does not improve or gets worse again, then other options include econazole, voriconazole, or micafungin IV. Posaconazole is not available, I believe it is not available in this hospital, which is another option. Amphotericin B is an option, but I think that will be the last resort. Continue Diflucan 400 mg daily IV with oral nystatin. Monitor the patient clinically. Again, the patient seems to be clinically improved today versus yesterday. With regard to leukocytosis, we will monitor closely. If it persists, the patient may need CT imaging of the abdomen and blood cultures. She does have a PICC line. No fevers, however. 2. Canseco ileostomy, status post revision. 3. The patient has history of ulcerative colitis. 4. Multiple abdominal surgeries including cholecystectomy. 5. History of colectomy. 6. History of asthma. 7. Anxiety and depression. 8. Fibromyalgia. 9. Ulcerative colitis. 10. History of . 11. History of Canseco continent ileostomy. 12. History of hysterectomy. 13. Allergies to Cipro, codeine, metoclopramide, sulfa, and sutures. 14. Family history is noncontributory. 15. Social history is negative. 16. MAR is noted. 17. Case was discussed with RN. 18. Case was discussed with Dr. Aceves. 19. Continue treatment per primary consultants. 20. Case was discussed with the patient. Thank you, I will follow. Starla Liriano M.D. DR: FARTUN JOB#: [id number] CC:
[2019-11-11] VITALS: BP 97/58
[2019-11-11 04:00] VITALS: BP 99/61
[2019-11-11] MEDS: Ketorolac 30mg Inj IV PRN (05:11)
[2019-11-11 05:42] LABS: BASOPHILS % (AUTO) 1.4 % (0.0-2.0); EOSINOPHILS % (AUTO) 5.9 % (0.0-3.0); HEMATOCRIT 33.2 % (37.0-47.0); HEMOGLOBIN 10.9 G/DL (12.0-16.0); MEAN CORPUSCULAR VOLUME 86 FL (80-99); MONOCYTES % (AUTO) 11.2 % (1.0-10.0); NEUTROPHILS % (AUTO) 65.4 % (45.0-75.0); PLATELET COUNT 376 K/UL (150-450); RED BLOOD COUNT 3.87 M/UL (4.20-5.40); RED CELL DISTRIBUTION WIDTH 11.9 % (11.6-14.8); WHITE BLOOD COUNT 14.2 K/UL (4.8-10.8)
[2019-11-11 05:55] LABS: ALANINE AMINOTRANSFERASE 26 U/L (12-78); ALBUMIN 2.9 G/DL (3.4-5.0); ALBUMIN/GLOBULIN RATIO 0.8 (1.0-2.7); ALKALINE PHOSPHATASE 47 U/L (46-116); ANION GAP 6 mmol/L (5-15); ASPARTATE AMINO TRANSFERASE 15 U/L (15-37); BILIRUBIN,TOTAL 0.4 MG/DL (0.2-1.0); BLOOD UREA NITROGEN 5 mg/dL (7-18); CALCIUM 8.9 MG/DL (8.5-10.1); CARBON DIOXIDE 27 MMOL/L (21-32); CHLORIDE 104 MMOL/L (98-107); CREATININE 0.7 MG/DL (0.55-1.30); POTASSIUM 3.9 MMOL/L (3.5-5.1); SODIUM 137 MMOL/L (136-145)
[2019-11-11 08:00] VITALS: BP 99/60
[2019-11-11] MEDS: Nystatin Susp 500,000 units/5ml ORAL SCH ×4 (08:59→21:27)
[2019-11-11] MEDS: ELMIRON 100 MG ORAL SCH ×3 (09:00→18:20)
[2019-11-11] MEDS ORDERED: oxyCODONE HCL/Acetaminophen 5/325mg ORAL PRN (11:00)
--- NOTE | 2019-11-11 11:13 | General Progress Note ---
Progress Note Progress Note T 101.2 Thrush much improved. U/A negative for UTI Abdomen soft, non-tender, incision clean, stoma healing nicely Urine 1600 BCIR fileo 420 WBC up 14,200Hgb down 10.9 Imp: Fever ? etiology R/O intraabdominal infection vs. PICC line Plan; STAT CT abd+pelvis with contrast IV fluids/ npo Start IV antibiotics - discussed with ID If CT negative, will remove PICC line Jose Aceves MD Nov 11, 2019 11:13
[2019-11-11] MEDS ORDERED: Omnipaque-300 100ml vial INJ PRN (11:15)
[2019-11-11 12:06] VITALS: BP 115/76
[2019-11-11] MEDS: D5 1/2NS w/KCl 20mEq 1,000 ML IV SCH ×2 (12:28→21:30)
[2019-11-11] MEDS: Vancomycin 1 GM in NS 275 ML IVPB SCH (14:02)
[2019-11-11] MEDS: Piperacillin/Tazobactam 3.375 GM in NS 110 ML IVPB SCH ×2 (14:44→22:11)
[2019-11-11] MEDS ORDERED: Tubing IV Secondary IV ONE (14:46)
[2019-11-11 16:00] VITALS: BP 112/70
[2019-11-11 20:00] VITALS: BP 94/60
[2019-11-11] MEDS: Dyna-Hex 2% Top Sol 2oz TOPIC SCH (20:00)
--- NOTE | 2019-11-11 20:02 | Diagnostic Imaging Report ---
EXAM: CT Abdomen and Pelvis With Intravenous Contrast CLINICAL HISTORY: ABSCESS TECHNIQUE: Axial computed tomography images of the abdomen and pelvis with intravenous contrast. CTDI is 5.30 mGy and DLP is 270.50 mGy-cm. One or more of the following dose reduction techniques were used: automated exposure control, adjustment of the mA and/or kV according to patient size, use of iterative reconstruction technique. COMPARISON: CT abdomen and pelvis dated 01/19/2019 FINDINGS: Lung bases: Unremarkable. No mass. No consolidation. ABDOMEN: Liver: Unremarkable. No mass. Gallbladder and bile ducts: Prior cholecystectomy. No ductal dilation. Pancreas: Unremarkable. No mass. No ductal dilation. Spleen: Unremarkable. No splenomegaly. Adrenals: Unremarkable. No mass. Kidneys and ureters: Unremarkable. No solid mass. No hydronephrosis. Stomach and bowel: Status post colectomy with ileostomy. Ileostomy catheter in place. Fluid collection within the rectal pouch, which is unchanged as compared to prior imaging and likely post surgical. Limited evaluation of the oral contrast does not opacify this region yet. Mild dilation of the small bowel measuring up to 4.4 cm. PELVIS: Appendix: See above. Bladder: Air within the urinary bladder. May be from recent catheterization. Reproductive: Unremarkable as visualized. ABDOMEN and PELVIS: Intraperitoneal space: Free air within the abdomen. No significant fluid collection. Bones/joints: No acute fracture. No dislocation. Soft tissues: Superficial midline surgical debbie. Adjacent mild subcutaneous inflammatory change, predominantly involving the lower pelvis. Vasculature: Unremarkable. No abdominal aortic aneurysm. Lymph nodes: Unremarkable. No enlarged lymph nodes. IMPRESSION: 1. Pneumoperitoneum. Given postsurgical changes, this is likely post surgical in nature. However, recommend clinical correlation. 2. Subcutaneous inflammatory change of the anterior pelvic soft tissues. No drainable fluid collection. 3. Dilation of the small bowel measuring up to 4.4 cm. Findings are concerning for ileus/early small bowel obstruction. 4. Postsurgical changes from ileostomy. Limited evaluation of the pelvic fluid filled structures as oral contrast has not transited this point. 5. Air within the urinary bladder. Recommend correlation with clinical history for recent catheterization. UTI is also in the differential. 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
[2019-11-11] MEDS: Iron Sucrose 100 MG in NS 55 ML IV SCH (22:10)
[2019-11-12] VITALS: BP 98/56
[2019-11-12] MEDS: Vancomycin 1 GM in NS 275 ML IVPB SCH (00:30)
[2019-11-12] MEDS: Ketorolac 30mg Inj IV PRN (02:55)
[2019-11-12 04:00] VITALS: BP 97/56
[2019-11-12] MEDS: Piperacillin/Tazobactam 3.375 GM in NS 110 ML IVPB SCH ×3 (06:00→21:03)
[2019-11-12] MEDS: D5 1/2NS w/KCl 20mEq 1,000 ML IV SCH ×2 (06:32→20:39)
[2019-11-12 06:59] LABS: BASOPHILS % (AUTO) 1.2 % (0.0-2.0); EOSINOPHILS % (AUTO) 5.4 % (0.0-3.0); HEMATOCRIT 29.2 % (37.0-47.0); HEMOGLOBIN 9.6 G/DL (12.0-16.0); LYMPHOCYTES % (AUTO) 16.6 % (20.0-45.0); MEAN CORPUSCULAR VOLUME 86 FL (80-99); MONOCYTES % (AUTO) 10.4 % (1.0-10.0); NEUTROPHILS % (AUTO) 66.4 % (45.0-75.0); PLATELET COUNT 381 K/UL (150-450); RED BLOOD COUNT 3.39 M/UL (4.20-5.40); RED CELL DISTRIBUTION WIDTH 12.3 % (11.6-14.8); WHITE BLOOD COUNT 13.7 K/UL (4.8-10.8)
[2019-11-12 07:04] LABS: ALANINE AMINOTRANSFERASE 24 U/L (12-78); ALBUMIN 2.6 G/DL (3.4-5.0); ALBUMIN/GLOBULIN RATIO 0.7 (1.0-2.7); ALKALINE PHOSPHATASE 52 U/L (46-116); ANION GAP 10 mmol/L (5-15); ASPARTATE AMINO TRANSFERASE 14 U/L (15-37); BILIRUBIN,TOTAL 0.4 MG/DL (0.2-1.0); BLOOD UREA NITROGEN 3 mg/dL (7-18); CALCIUM 8.4 MG/DL (8.5-10.1); CARBON DIOXIDE 24 MMOL/L (21-32); CHLORIDE 107 MMOL/L (98-107); CREATININE 0.7 MG/DL (0.55-1.30); PHOSPHORUS 4.2 MG/DL (2.5-4.9); POTASSIUM 3.8 MMOL/L (3.5-5.1); SODIUM 141 MMOL/L (136-145)
[2019-11-12 08:00] VITALS: BP 99/61
--- NOTE | 2019-11-12 08:27 | General Progress Note ---
Progress Note Progress Note Afebrile x 36 hours - had sweats overnight but feeling better now. Eating BCIR diet 50% Now on Zosyn and Vancomycin CT scan - no obvious abscess Abdomen soft, non-tender, incision clean, stoma healing with slight lateral separation Urine 2500 BCIR ileo 1720 (including CT contrast) WBC 13,700 Hgb 9.6 chemistries okay but albumin 2.6 Imp: Infection ? source Plan: maintain PICC for venous access unless needs to be removed per ID Will review CT scan with our Radiologist today Continue diet, antibiotics, continuous drainage of Canseco pouch Jose Aceves MD Nov 12, 2019 08:27
[2019-11-12] MEDS: ELMIRON 100 MG ORAL SCH ×3 (09:03→17:04)
[2019-11-12] MEDS: Nystatin Susp 500,000 units/5ml ORAL SCH ×4 (09:03→20:41)
[2019-11-12] MEDS: Albuterol ud Inhalation HHN PRN (10:03)
[2019-11-12 11:51] VITALS: BP 117/64
[2019-11-12] MEDS: Vancomycin 1.25gm/NS Premix q24h IVPB SCH (14:36)
--- NOTE | 2019-11-12 14:42 | Infectious Diseases Prog Note ---
Assessment/Plan Assessment/Plan ASSESSMENT AND PLAN: 1. leukocytosis, fevers, ? sepsis, refractory thrush, ? picc line, ua - le 1+, 0-2 wbc, urine culture < 10,[address] - no fluid collection, ? early ileus/bowel obstruction per report - empiric zosyn and vancomycin - diflucan for thrush - 400 mg/daily - f/u on cultures and labs, check chest x-ray - continue management per Dr. Aceves 2. Canseco ileostomy, status post revision. 3. The patient has history of ulcerative colitis. 4. Multiple abdominal surgeries including cholecystectomy. 5. History of colectomy. 6. History of asthma. 7. Anxiety and depression. 8. Fibromyalgia. 9. Ulcerative colitis. 10. History of . 11. History of Canseco continent ileostomy. 12. History of hysterectomy. 13. Allergies to Cipro, codeine, metoclopramide, sulfa, and sutures. 14. Family history is noncontributory. 15. Social history is negative. 16. MAR is noted. 17. Case was discussed with RN. 18. Case was discussed with Dr. Aceves. 19. Continue treatment per primary consultants. 20. Case was discussed with the patient. Subjective Constitutional: Reports: fever - fever yesterday , fatigue HEENT: Denies: congestion Respiratory: Denies: shortness of breath Cardiovascular: Denies: chest pain Gastrointestinal/Abdominal: Denies: nausea, vomiting, diarrhea Genitourinary: Reports: other - no colindres Neurologic: Denies: headache Psychiatric: Denies: depression Skin: Denies: rash Hematologic: Denies: bleeding Musculoskeletal: Reports: pain - controlled Allergies: Coded Allergies: CODEINE (Verified Allergy, Unknown, 01/09/19) METOCLOPRAMIDE (Verified Allergy, Unknown, 01/09/19) SULFA (SULFONAMIDE ANTIBIOTICS) (Verified Allergy, Unknown, 01/09/19) SUTURE (Verified Allergy, Unknown, 01/09/19) VICRYL CIPROFLOXACIN (Verified Adverse Reaction, Unknown, 01/09/19) ANGRY, CRYING, VERY EMOTIONAL. Objective Last 24 Hour Vital Signs Date Time Temp Pulse Resp B/P (MAP) Pulse Ox O2 Delivery O2 Flow Rate FiO2 11/12/19 11:51 98.1 101 21 117/64 (81) 99 11/12/19 10:13 88 18 100 Room Air 82 18 100 11/12/19 09:00 Room Air 11/12/19 08:00 97.9 82 20 99/61 (74) 100 11/12/19 04:00 98.2 72 18 97/56 (70) 99 11/12/19 03:25 98.2 11/12/19 00:27 98.2 11/12/19 00:00 98.8 83 18 98/56 (70) 98 11/11/19 21:00 Room Air 11/11/19 20:00 98.2 95 18 94/60 (71) 100 11/11/19 19:25 97 20 98 Room Air 21 11/11/19 16:00 99.6 101 17 112/70 (84) 98 Height (Feet): 5 Height (Inches): 4.00 Weight (Pounds): 145 General Appearance: no acute distress HEENT: normocephalic, atraumatic, anicteric, mucous membranes moist Respiratory/Chest: lungs clear, normal breath sounds, no respiratory distress, no accessory muscle use Cardiovascular: normal rate, regular rhythm, no gallop/murmur, no JVD Abdomen: normal bowel sounds, soft, non tender, no organomegaly, non distended, other - incision covered Genitourinary: other - no colindres, cva pain Extremities: no cyanosis Skin: no rash Neurologic/Psychiatric: 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 Pleural space: Unremarkable. No pneumothorax. Heart: Cardiomediastinal silhouette unremarkable Mediastinum: See above. Bones/joints: Gentle levoscoliosis of the lower thoracic spine. Osteopenia. The ribs are grossly unremarkable. IMPRESSION: No active disease. CT abdomen and pelvis - 11/10 - IMPRESSION: 1. Pneumoperitoneum. Given postsurgical changes, this is likely post surgical in nature. However, recommend clinical correlation. 2. Subcutaneous inflammatory change of the anterior pelvic soft tissues. No drainable fluid collection. 3. Dilation of the small bowel measuring up to 4.4 cm. Findings are concerning for ileus/early small bowel obstruction. 4. Postsurgical changes from ileostomy. Limited evaluation of the pelvic fluid filled structures as oral contrast has not transited this point. 5. Air within the urinary bladder. Recommend correlation with clinical history for recent catheterization. UTI is also in the differential. Microbiology Date/Time Source Procedure Growth Status 11/10/19 10:10 Urine,Clean Catch Urine Culture - Preliminary Gram Negative Mike Resulted 10/30/19 14:40 Nasopharynx SARS-CoV-2 RdRp Gene Assay - Final Complete Microbiology Date/Time Source Procedure Growth Status 11/10/19 10:10 Urine,Clean Catch Urine Culture - Preliminary Gram Negative Mike Resulted Laboratory Tests Test 11/12/19 05:00 11/12/19 11:55 White Blood Count 13.7 K/UL (4.8-10.8) H Red Blood Count 3.39 M/UL (4.20-5.40) L Hemoglobin 9.6 G/DL (12.0-16.0) L Hematocrit 29.2 % (37.0-47.0) L Mean Corpuscular Volume 86 FL (80-99) Mean Corpuscular Hemoglobin 28.4 PG (27.0-31.0) Mean Corpuscular Hemoglobin Concent 33.0 G/DL (32.0-36.0) Red Cell Distribution Width 12.3 % (11.6-14.8) Platelet Count 381 K/UL (150-450) Mean Platelet Volume 5.3 FL (6.5-10.1) L Neutrophils (%) (Auto) 66.4 % (45.0-75.0) Lymphocytes (%) (Auto) 16.6 % (20.0-45.0) L Monocytes (%) (Auto) 10.4 % (1.0-10.0) H Eosinophils (%) (Auto) 5.4 % (0.0-3.0) H Basophils (%) (Auto) 1.2 % (0.0-2.0) Sodium Level 141 MMOL/L (136-145) Potassium Level 3.8 MMOL/L (3.5-5.1) Chloride Level 107 MMOL/L (98-107) Carbon Dioxide Level 24 MMOL/L (21-32) Anion Gap 10 mmol/L (5-15) Blood Urea Nitrogen 3 mg/dL (7-18) L Creatinine 0.7 MG/DL (0.55-1.30) Estimat Glomerular Filtration Rate > 60 mL/min (>60) Glucose Level 90 MG/DL (74-106) Calcium Level 8.4 MG/DL (8.5-10.1) L Phosphorus Level 4.2 MG/DL (2.5-4.9) Magnesium Level 2.0 MG/DL (1.8-2.4) Total Bilirubin 0.4 MG/DL (0.2-1.0) Aspartate Amino Transf (AST/SGOT) 14 U/L (15-37) L Alanine Aminotransferase (ALT/SGPT) 24 U/L (12-78) Alkaline Phosphatase 52 U/L (46-116) Total Protein 6.1 G/DL (6.4-8.2) L Albumin 2.6 G/DL (3.4-5.0) L Globulin 3.5 g/dL Albumin/Globulin Ratio 0.7 (1.0-2.7) L Vancomycin Level Trough 8.2 ug/mL (5.0-12.0) Current Medications Medications (Trade) Dose Ordered Sig/Pat Route PRN Reason Start Time Stop Time Status Last Admin Dose Admin Acetaminophen (Tylenol) 650 mg Q4H PRN ORAL Mild Pain or temp over 100.2 11/02/19 15:00 12/02/19 14:59 11/12/19 13:13 Albuterol Sulfate (Proventil) 2.5 mg Q4H PRN HHN Shortness of Breath 11/12/19 09:00 11/17/19 08:59 11/12/19 10:03 Alprazolam (Xanax) 0.25 mg TIDPRN PRN ORAL ANXIETY 11/09/19 08:45 11/16/19 08:44 Barium Sulfate (Readi-Cat 2) 450 ml NOW PRN ORAL Radiology Procedure 11/11/19 11:15 11/13/19 11:14 Cetirizine HCl (ZyrTEC) 10 mg Q24H ORAL 11/04/19 09:15 01/30/20 10:59 11/12/19 09:03 Chlorhexidine Gluconate (Asia-Hex 2%) 1 applic DAILY@2000 TOPIC 10/30/19 20:00 01/28/20 19:59 11/11/19 20:00 Dextrose/ Electrolytes 1,000 ml @ 50 mls/hr Q20H IV 11/11/19 11:30 12/11/19 11:29 11/12/19 06:32 Fluconazole/ Sodium Chloride 200 ml @ 100 mls/hr Q24H IV 11/10/19 09:00 11/17/19 08:59 11/12/19 09:03 Folic Acid (Folate) 1 mg DAILY ORAL 11/05/19 09:00 12/05/19 08:59 11/12/19 09:03 Hydromorphone HCl (Dilaudid) 1 mg Q4H PRN SUBQ Severe Breakthru Pain (>7) 11/09/19 09:00 11/16/19 08:59 Iohexol (OMNIPAQUE-300 100ml) 100 ml NOW PRN INJ Radiology Procedure 11/11/19 11:15 11/13/19 11:14 Iron Sucrose 100 mg/Sodium Chloride 60 ml @ 240 mls/hr BEDTIME IV 11/11/19 21:00 11/15/19 21:14 11/11/19 22:10 Ketorolac Tromethamine (Toradol 30mg) 30 mg Q6H PRN IV severe pain 7-10 11/12/19 08:30 11/17/19 08:29 Lamotrigine (LaMICtal) 200 mg QHS ORAL 10/30/19 21:00 11/29/19 20:59 11/11/19 21:27 Lorazepam (Ativan) 1 mg Q4H PRN SL Muscle Spasm 11/09/19 08:45 11/16/19 08:44 Nystatin (Nystatin) 5 ml QID ORAL 11/09/19 09:00 11/16/19 08:59 11/12/19 12:18 Ondansetron HCl (Zofran) 4 mg Q4HR PRN IVP Nausea & Vomiting 11/08/19 22:45 12/08/19 22:44 11/12/19 12:19 Oxycodone/ Acetaminophen (Percocet 5-325) 1 tab Q4H PRN ORAL Moderate Pain (Pain Scale 4-6) 11/11/19 11:00 11/18/19 10:59 Patient Own Medication (Patient's Own Med) 1 ea QIDPRN PRN ORAL burning with urination 10/30/19 18:15 11/29/19 18:14 Patient Own Medication (Patient's Own Med) 1 ea TID ORAL 11/09/19 13:00 12/09/19 12:59 11/12/19 12:24 Piperacillin Sod/ Tazobactam Sod 3.375 gm/Sodium Chloride 110 ml @ 27.5 mls/hr EVERY 8 HOURS IVPB 11/11/19 14:00 11/18/19 13:59 11/12/19 13:15 Vancomycin HCl ([facility] pharmacy to dose) 1 ea DAILY PRN MISC Per rx protocol 11/11/19 11:30 12/11/19 11:29 Vancomycin/Sodium Chloride 275 ml @ 183.333 mls/hr Q12HR@0200,1400 IVPB 11/12/19 14:00 11/17/19 13:59 Starla Liriano MD Nov 12, 2019 14:42
[2019-11-12 16:00] VITALS: BP 96/59
[2019-11-12] MEDS ORDERED: Tubing IV Secondary IV ONE (16:40)
--- NOTE | 2019-11-12 19:00 | Diagnostic Imaging Report ---
Indication: Shortness of breath Technique: One view of the chest Comparison: 10/30/2019 Findings: Lungs and pleural spaces are clear. Heart size is normal. There is a left arm PICC in place. Impression: No acute process
[2019-11-12 20:00] VITALS: BP 93/63
[2019-11-12] MEDS: Iron Sucrose 100 MG in NS 55 ML IV SCH (20:41)
[2019-11-12] MEDS: Dyna-Hex 2% Top Sol 2oz TOPIC SCH (20:41)
[2019-11-13] VITALS (7 sets, daily range): BP systolic 98–112; BP diastolic 59–70
[2019-11-13] MEDS: Vancomycin 1.25gm/NS Premix q24h IVPB SCH (01:14)
[2019-11-13] MEDS: D5 1/2NS w/KCl 20mEq 1,000 ML IV SCH ×2 (02:10→17:58)
[2019-11-13] MEDS: Piperacillin/Tazobactam 3.375 GM in NS 110 ML IVPB SCH ×2 (05:05→13:01)
[2019-11-13 06:06] LABS: EOSINOPHILS % (AUTO) 5.1 % (0.0-3.0); HEMATOCRIT 27.7 % (37.0-47.0); HEMOGLOBIN 9.2 G/DL (12.0-16.0); LYMPHOCYTES % (AUTO) 12.4 % (20.0-45.0); MEAN CORPUSCULAR VOLUME 86 FL (80-99); MONOCYTES % (AUTO) 11.4 % (1.0-10.0); NEUTROPHILS % (AUTO) 70.1 % (45.0-75.0); PLATELET COUNT 412 K/UL (150-450); RED BLOOD COUNT 3.23 M/UL (4.20-5.40); WHITE BLOOD COUNT 14.8 K/UL (4.8-10.8)
[2019-11-13 06:39] LABS: ALBUMIN 2.6 G/DL (3.4-5.0); ALBUMIN/GLOBULIN RATIO 0.7 (1.0-2.7); BILIRUBIN,TOTAL 0.5 MG/DL (0.2-1.0); CALCIUM 8.7 MG/DL (8.5-10.1); CREATININE 1.4 MG/DL (0.55-1.30); POTASSIUM 4.2 MMOL/L (3.5-5.1)
[2019-11-13] MEDS: Nystatin Susp 500,000 units/5ml ORAL SCH ×4 (09:20→20:12)
[2019-11-13] MEDS: ELMIRON 100 MG ORAL SCH ×3 (09:20→17:58)
[2019-11-13] MEDS: Albuterol ud Inhalation HHN PRN (12:12)
[2019-11-13] MEDS: Ketorolac 30mg Inj IV PRN (13:00)
--- NOTE | 2019-11-13 14:24 | General Progress Note ---
Progress Note Progress Note AVSS Some difficulty eating due to antibiotic induced mild nausea and thrush worse - on Zosyn and Vanco Abdomen soft, incision healing nicely, stoma stable Urine 2950 BCIR ileo 570 WBC 14,800 Hgb 9.2 (on Venofer) Cr up 1.4 Imp: Persistent leukocytosis ? source Candidiasis, oral Plan: Adjust antibiotics/Vanco for elevated Cr (pharmacy notified this AM) If leukocytosis persists will remove PICC and start peripheral IV in AM (poor venous access) Maintain continuous drainage of Canseco Pouch Jose Aceves MD Nov 13, 2019 14:24
--- NOTE | 2019-11-13 14:57 | Infectious Diseases Prog Note ---
Assessment/Plan Assessment/Plan ASSESSMENT AND PLAN: 1. leukocytosis, fevers, ? sepsis, refractory thrush, ? picc line infection, ua - le 1+, 0-2 wbc, urine culture < 10,[address] - no fluid collection, ? early ileus/bowel obstruction per report OMAR - ? zosyn, ? vancomycin - change antibiotics to ceftriaxone, flagyl and daptomycin - micafungin for refractory thrush - f/u on cultures and labs, check chest x-ray - continue management per Dr. Aceves - d/w Dr. Aceves and patient 2. Canseco ileostomy, status post revision. 3. The patient has history of ulcerative colitis. 4. Multiple abdominal surgeries including cholecystectomy. 5. History of colectomy. 6. History of asthma. 7. Anxiety and depression. 8. Fibromyalgia. 9. Ulcerative colitis. 10. History of . 11. History of Canseco continent ileostomy. 12. History of hysterectomy. 13. Allergies to Cipro, codeine, metoclopramide, sulfa, and sutures. 14. Family history is noncontributory. 15. Social history is negative. 16. MAR is noted. 17. Case was discussed with RN. 18. Case was discussed with Dr. Aceves. 19. Continue treatment per primary consultants. 20. Case was discussed with the patient. Subjective Constitutional: Denies: fever HEENT: Reports: other - thrush worse ; Denies: congestion Respiratory: Denies: shortness of breath Cardiovascular: Denies: chest pain Gastrointestinal/Abdominal: Denies: nausea, vomiting Allergies: Coded Allergies: CODEINE (Verified Allergy, Unknown, 01/09/19) METOCLOPRAMIDE (Verified Allergy, Unknown, 01/09/19) SULFA (SULFONAMIDE ANTIBIOTICS) (Verified Allergy, Unknown, 01/09/19) SUTURE (Verified Allergy, Unknown, 01/09/19) VICRYL CIPROFLOXACIN (Verified Adverse Reaction, Unknown, 01/09/19) ANGRY, CRYING, VERY EMOTIONAL. Objective Last 24 Hour Vital Signs Date Time Temp Pulse Resp B/P (MAP) Pulse Ox O2 Delivery O2 Flow Rate FiO2 11/13/19 13:30 98.3 11/13/19 12:12 89 18 100 Room Air 86 18 100 11/13/19 12:00 98.4 85 21 104/60 (75) 97 11/13/19 09:00 Room Air 11/13/19 08:00 98.3 91 19 106/63 (77) 97 11/13/19 03:49 99.0 85 18 105/59 (74) 99 11/13/19 00:00 99.4 87 16 105/66 (79) 96 11/12/19 21:00 Room Air 11/12/19 20:00 98.8 90 16 93/63 (73) 100 11/12/19 16:00 98.2 87 21 96/59 (71) 97 Height (Feet): 5 Height (Inches): 4.00 Weight (Pounds): 145 General Appearance: no acute distress HEENT: normocephalic, atraumatic, anicteric, thrush - worse Respiratory/Chest: no accessory muscle use Cardiovascular: normal rate, regular rhythm Abdomen: soft, non tender, no organomegaly Chest x-ray - 10/30/19 - FINDINGS: Lungs: The lungs are well aerated. Pleural space: Unremarkable. No pneumothorax. Heart: Cardiomediastinal silhouette unremarkable Mediastinum: See above. Bones/joints: Gentle levoscoliosis of the lower thoracic spine. Osteopenia. The ribs are grossly unremarkable. IMPRESSION: No active disease. CT abdomen and pelvis - 11/10 - IMPRESSION: 1. Pneumoperitoneum. Given postsurgical changes, this is likely post surgical in nature. However, recommend clinical correlation. 2. Subcutaneous inflammatory change of the anterior pelvic soft tissues. No drainable fluid collection. 3. Dilation of the small bowel measuring up to 4.4 cm. Findings are concerning for ileus/early small bowel obstruction. 4. Postsurgical changes from ileostomy. Limited evaluation of the pelvic fluid filled structures as oral contrast has not transited this point. 5. Air within the urinary bladder. Recommend correlation with clinical history for recent catheterization. UTI is also in the differential. Microbiology Date/Time Source Procedure Growth Status 11/10/19 21:50 Blood Blood Culture - Preliminary NO GROWTH AFTER 48 HOURS Resulted 11/10/19 21:35 Blood Blood Culture - Preliminary NO GROWTH AFTER 48 HOURS Resulted Laboratory Tests Test 11/13/19 04:45 11/13/19 14:15 White Blood Count 14.8 K/UL (4.8-10.8) H Red Blood Count 3.23 M/UL (4.20-5.40) L Hemoglobin 9.2 G/DL (12.0-16.0) L Hematocrit 27.7 % (37.0-47.0) L Mean Corpuscular Volume 86 FL (80-99) Mean Corpuscular Hemoglobin 28.6 PG (27.0-31.0) Mean Corpuscular Hemoglobin Concent 33.4 G/DL (32.0-36.0) Red Cell Distribution Width 12.0 % (11.6-14.8) Platelet Count 412 K/UL (150-450) Mean Platelet Volume 5.2 FL (6.5-10.1) L Neutrophils (%) (Auto) 70.1 % (45.0-75.0) Lymphocytes (%) (Auto) 12.4 % (20.0-45.0) L Monocytes (%) (Auto) 11.4 % (1.0-10.0) H Eosinophils (%) (Auto) 5.1 % (0.0-3.0) H Basophils (%) (Auto) 1.0 % (0.0-2.0) Sodium Level 142 MMOL/L (136-145) Potassium Level 4.2 MMOL/L (3.5-5.1) Chloride Level 109 MMOL/L (98-107) H Carbon Dioxide Level 24 MMOL/L (21-32) Anion Gap 9 mmol/L (5-15) Blood Urea Nitrogen 5 mg/dL (7-18) L Creatinine 1.4 MG/DL (0.55-1.30) #H Estimat Glomerular Filtration Rate 43.3 mL/min (>60) Glucose Level 87 MG/DL (74-106) Calcium Level 8.7 MG/DL (8.5-10.1) Total Bilirubin 0.5 MG/DL (0.2-1.0) Aspartate Amino Transf (AST/SGOT) 19 U/L (15-37) Alanine Aminotransferase (ALT/SGPT) 25 U/L (12-78) Alkaline Phosphatase 64 U/L (46-116) Total Protein 6.2 G/DL (6.4-8.2) L Albumin 2.6 G/DL (3.4-5.0) L Globulin 3.6 g/dL Albumin/Globulin Ratio 0.7 (1.0-2.7) L Random Vancomycin Level 11.4 ug/mL Current Medications Medications (Trade) Dose Ordered Sig/Pat Route PRN Reason Start Time Stop Time Status Last Admin Dose Admin Acetaminophen (Tylenol) 650 mg Q4H PRN ORAL Mild Pain or temp over 100.2 11/02/19 15:00 12/02/19 14:59 11/12/19 13:13 Albuterol Sulfate (Proventil) 2.5 mg Q4H PRN HHN Shortness of Breath 11/12/19 09:00 11/17/19 08:59 11/13/19 12:12 Alprazolam (Xanax) 0.25 mg TIDPRN PRN ORAL ANXIETY 11/09/19 08:45 11/16/19 08:44 Cetirizine HCl (ZyrTEC) 10 mg Q24H ORAL 11/04/19 09:15 01/30/20 10:59 11/13/19 09:20 Chlorhexidine Gluconate (Asia-Hex 2%) 1 applic DAILY@2000 TOPIC 10/30/19 20:00 01/28/20 19:59 11/12/19 20:41 Dextrose/ Electrolytes 1,000 ml @ 50 mls/hr Q20H IV 11/11/19 11:30 12/11/19 11:29 11/12/19 20:39 Fluconazole/ Sodium Chloride 200 ml @ 100 mls/hr Q24H IV 11/10/19 09:00 11/17/19 08:59 11/13/19 09:00 Folic Acid (Folate) 1 mg DAILY ORAL 11/05/19 09:00 12/05/19 08:59 11/13/19 09:20 Hydromorphone HCl (Dilaudid) 1 mg Q4H PRN SUBQ Severe Breakthru Pain (>7) 11/09/19 09:00 11/16/19 08:59 Iron Sucrose 100 mg/Sodium Chloride 60 ml @ 240 mls/hr BEDTIME IV 11/11/19 21:00 11/15/19 21:14 11/12/19 20:41 Ketorolac Tromethamine (Toradol 30mg) 30 mg Q6H PRN IV severe pain 7-10 11/12/19 08:30 11/17/19 08:29 11/13/19 13:00 Lamotrigine (LaMICtal) 200 mg QHS ORAL 10/30/19 21:00 11/29/19 20:59 11/12/19 20:41 Lorazepam (Ativan) 1 mg Q4H PRN SL Muscle Spasm 11/09/19 08:45 11/16/19 08:44 Nystatin (Nystatin) 5 ml QID ORAL 11/09/19 09:00 11/16/19 08:59 11/13/19 13:00 Ondansetron HCl (Zofran) 4 mg Q4HR PRN IVP Nausea & Vomiting 11/08/19 22:45 12/08/19 22:44 11/13/19 13:00 Oxycodone/ Acetaminophen (Percocet 5-325) 1 tab Q4H PRN ORAL Moderate Pain (Pain Scale 4-6) 11/11/19 11:00 11/18/19 10:59 Patient Own Medication (Patient's Own Med) 1 ea QIDPRN PRN ORAL burning with urination 10/30/19 18:15 11/29/19 18:14 Patient Own Medication (Patient's Own Med) 1 ea TID ORAL 11/09/19 13:00 12/09/19 12:59 11/13/19 13:00 Piperacillin Sod/ Tazobactam Sod 3.375 gm/Sodium Chloride 110 ml @ 27.5 mls/hr EVERY 8 HOURS IVPB 11/11/19 14:00 11/18/19 13:59 11/13/19 13:01 Vancomycin HCl ([facility] pharmacy to dose) 1 ea DAILY PRN MISC Per rx protocol 11/11/19 11:30 12/11/19 11:29 Starla Liriano MD Nov 13, 2019 14:57
[2019-11-13] MEDS ORDERED: Tubing IV Secondary IV ONE (16:03)
[2019-11-13] MEDS ORDERED: NS Irrig 1000ml ONE (16:03)
[2019-11-13] MEDS: cefTRIAXone 1 GM in D5W 55 ML IVPB SCH (16:25)
[2019-11-13] MEDS: DAPTOmycin 400 MG in NS 55 ML IV SCH (17:58)
[2019-11-13] MEDS: NS IVPB SCH (20:12)
[2019-11-13] MEDS: Dyna-Hex 2% Top Sol 2oz TOPIC SCH (20:12)
[2019-11-13] MEDS: MICAFUNGIN IVPB SCH (20:12)
[2019-11-13] MEDS: Iron Sucrose 100 MG in NS 55 ML IV SCH (20:12)
[2019-11-14] MEDS: Ketorolac 30mg Inj IV PRN ×2 (00:07→17:59)
[2019-11-14 04:00] VITALS: BP 105/69
[2019-11-14 05:44] LABS: BASOPHILS % (AUTO) 1.3 % (0.0-2.0); EOSINOPHILS % (AUTO) 6.7 % (0.0-3.0); HEMATOCRIT 24.7 % (37.0-47.0); HEMOGLOBIN 8.1 G/DL (12.0-16.0); LYMPHOCYTES % (AUTO) 16.1 % (20.0-45.0); MEAN CORPUSCULAR VOLUME 86 FL (80-99); MONOCYTES % (AUTO) 10.7 % (1.0-10.0); NEUTROPHILS % (AUTO) 65.2 % (45.0-75.0); PLATELET COUNT 386 K/UL (150-450); RED BLOOD COUNT 2.86 M/UL (4.20-5.40); RED CELL DISTRIBUTION WIDTH 12.1 % (11.6-14.8); WHITE BLOOD COUNT 11.4 K/UL (4.8-10.8)
[2019-11-14 06:05] LABS: ALBUMIN 2.4 G/DL (3.4-5.0); ALBUMIN/GLOBULIN RATIO 0.8 (1.0-2.7); BILIRUBIN,TOTAL 0.3 MG/DL (0.2-1.0); CALCIUM 8.7 MG/DL (8.5-10.1); CREATININE 1.3 MG/DL (0.55-1.30); POTASSIUM 3.7 MMOL/L (3.5-5.1)
[2019-11-14 06:48] LABS: CREATINE KINASE 27 U/L (26-308)
[2019-11-14 08:00] VITALS: BP 98/71
[2019-11-14] MEDS ORDERED: ALPRAZolam 0.25mg tab ORAL PRN (08:15)
--- NOTE | 2019-11-14 08:18 | General Progress Note ---
Progress Note Progress Note Continues afebrile. Only c/o nausea due to multiple antibiotics Abdomen soft, healing well Urine 2950 BCIR ileo 570 WBC down 11,400 Hgb down 8.1 on Venofer BUN 6 Cr down 1.3 Now on Rocephin, Daptomycin, flagyl and Micafungin Imp: Improved leukocytosis Plan: Change Zofran to ODT d/c IV fluids - maintain PICC for meds maintain continuous drainage of Canseco Pouch f/u labs Jose Aceves MD Nov 14, 2019 08:18
[2019-11-14] MEDS ORDERED: Tubing IV Secondary IV ONE ×2 (08:21→22:46)
[2019-11-14] MEDS: Nystatin Susp 500,000 units/5ml ORAL SCH ×4 (09:02→20:49)
[2019-11-14] MEDS: ELMIRON 100 MG ORAL SCH ×3 (09:02→17:59)
[2019-11-14 12:00] VITALS: BP 101/64
[2019-11-14 16:00] VITALS: BP 115/71
[2019-11-14] MEDS: cefTRIAXone 1 GM in D5W 55 ML IVPB SCH (17:03)
[2019-11-14] MEDS: DAPTOmycin 400 MG in NS 55 ML IV SCH (17:58)
--- NOTE | 2019-11-14 18:03 | Infectious Diseases Prog Note ---
Assessment/Plan Assessment/Plan ASSESSMENT AND PLAN: 1. leukocytosis, fevers, ? sepsis, refractory thrush, ? picc line infection, ua - le 1+, 0-2 wbc, urine culture < 10,[address] - no fluid collection, ? early ileus/bowel obstruction per report OMAR - ? zosyn, ? vancomycin urine culture with e.coli - <10,000 organisms and ua benign - unlikely significant - ceftriaxone, flagyl and daptomycin - micafungin for refractory thrush - monitor labs - leukocytosis and fevers improved - continue management per Dr. Aceves 2. Canseco ileostomy, status post revision. 3. The patient has history of ulcerative colitis. 4. Multiple abdominal surgeries including cholecystectomy. 5. History of colectomy. 6. History of asthma. 7. Anxiety and depression. 8. Fibromyalgia. 9. Ulcerative colitis. 10. History of . 11. History of Canseco continent ileostomy. 12. History of hysterectomy. 13. Allergies to Cipro, codeine, metoclopramide, sulfa, and sutures. 14. Family history is noncontributory. 15. Social history is negative. 16. MAR is noted. 17. Case was discussed with RN. 18. Case was discussed with Dr. Aceves. 19. Continue treatment per primary consultants. 20. Case was discussed with the patient. Subjective Constitutional: Denies: fever HEENT: Denies: congestion Respiratory: Denies: shortness of breath Cardiovascular: Denies: chest pain Gastrointestinal/Abdominal: Reports: nausea; Denies: vomiting Neurologic: Denies: headache Psychiatric: Denies: depression Skin: Denies: rash Hematologic: Denies: bleeding Musculoskeletal: Denies: pain Allergies: Coded Allergies: CODEINE (Verified Allergy, Unknown, 01/09/19) METOCLOPRAMIDE (Verified Allergy, Unknown, 01/09/19) SULFA (SULFONAMIDE ANTIBIOTICS) (Verified Allergy, Unknown, 01/09/19) SUTURE (Verified Allergy, Unknown, 01/09/19) VICRYL CIPROFLOXACIN (Verified Adverse Reaction, Unknown, 01/09/19) ANGRY, CRYING, VERY EMOTIONAL. Objective Last 24 Hour Vital Signs Date Time Temp Pulse Resp B/P (MAP) Pulse Ox O2 Delivery O2 Flow Rate FiO2 11/14/19 16:00 98.6 88 18 115/71 (86) 98 11/14/19 12:00 98.2 90 18 101/64 (76) 99 11/14/19 09:00 Room Air 11/14/19 08:00 98.0 88 19 98/71 (80) 97 11/14/19 07:45 88 18 97 Room Air 21 11/14/19 04:00 98.3 90 17 105/69 (81) 98 11/13/19 23:44 98.6 91 18 112/70 (84) 98 11/13/19 20:49 Room Air 11/13/19 19:50 98.4 86 16 105/66 (79) 98 11/13/19 19:35 89 18 98 Room Air 21 Height (Feet): 5 Height (Inches): 4.00 Weight (Pounds): 145 General Appearance: no acute distress HEENT: normocephalic, atraumatic, anicteric, mucous membranes moist, supple, thrush Respiratory/Chest: lungs clear, normal breath sounds, no respiratory distress, no accessory muscle use Cardiovascular: normal rate, regular rhythm, no gallop/murmur Abdomen: normal bowel sounds, soft, non tender, no organomegaly, non distended Genitourinary: other - no colindres Extremities: no cyanosis Skin: no rash Neurologic/Psychiatric: hot room attendant II-XII grossly normal, no motor/sensory deficits, a lert, oriented x 3, responsive Lymphatic: no neck adenopathy Musculoskeletal: no effusion Chest x-ray - 10/30/19 - FINDINGS: Lungs: The lungs are well aerated. Pleural space: Unremarkable. No pneumothorax. Heart: Cardiomediastinal silhouette unremarkable Mediastinum: See above. Bones/joints: Gentle levoscoliosis of the lower thoracic spine. Osteopenia. The ribs are grossly unremarkable. IMPRESSION: No active disease. CT abdomen and pelvis - 11/10 - IMPRESSION: 1. Pneumoperitoneum. Given postsurgical changes, this is likely post surgical in nature. However, recommend clinical correlation. 2. Subcutaneous inflammatory change of the anterior pelvic soft tissues. No drainable fluid collection. 3. Dilation of the small bowel measuring up to 4.4 cm. Findings are concerning for ileus/early small bowel obstruction. 4. Postsurgical changes from ileostomy. Limited evaluation of the pelvic fluid filled structures as oral contrast has not transited this point. 5. Air within the urinary bladder. Recommend correlation with clinical history for recent catheterization. UTI is also in the differential. Chest x-ray - 11/12/19 - Procedure: XRAY Chest 1v Indication: Shortness of breath Technique: One view of the chest Comparison: 10/30/2019 Findings: Lungs and pleural spaces are clear. Heart size is normal. There is a left arm PICC in place. Impression: No acute process Microbiology Date/Time Source Procedure Growth Status 11/10/19 21:50 Blood Blood Culture - Preliminary NO GROWTH AFTER 72 HOURS Resulted 11/10/19 10:10 Urine,Clean Catch Urine Culture - Final Escherichia Coli Complete 10/30/19 14:40 Nasopharynx SARS-CoV-2 RdRp Gene Assay - Final Complete Laboratory Tests Test 11/14/19 04:45 White Blood Count 11.4 K/UL (4.8-10.8) H Red Blood Count 2.86 M/UL (4.20-5.40) L Hemoglobin 8.1 G/DL (12.0-16.0) L Hematocrit 24.7 % (37.0-47.0) L Mean Corpuscular Volume 86 FL (80-99) Mean Corpuscular Hemoglobin 28.4 PG (27.0-31.0) Mean Corpuscular Hemoglobin Concent 33.0 G/DL (32.0-36.0) Red Cell Distribution Width 12.1 % (11.6-14.8) Platelet Count 386 K/UL (150-450) Mean Platelet Volume 5.3 FL (6.5-10.1) L Neutrophils (%) (Auto) 65.2 % (45.0-75.0) Lymphocytes (%) (Auto) 16.1 % (20.0-45.0) L Monocytes (%) (Auto) 10.7 % (1.0-10.0) H Eosinophils (%) (Auto) 6.7 % (0.0-3.0) H Basophils (%) (Auto) 1.3 % (0.0-2.0) Sodium Level 142 MMOL/L (136-145) Potassium Level 3.7 MMOL/L (3.5-5.1) Chloride Level 108 MMOL/L (98-107) H Carbon Dioxide Level 25 MMOL/L (21-32) Anion Gap 9 mmol/L (5-15) Blood Urea Nitrogen 6 mg/dL (7-18) L Creatinine 1.3 MG/DL (0.55-1.30) Estimat Glomerular Filtration Rate 47.2 mL/min (>60) Glucose Level 88 MG/DL (74-106) Calcium Level 8.7 MG/DL (8.5-10.1) Total Bilirubin 0.3 MG/DL (0.2-1.0) Aspartate Amino Transf (AST/SGOT) 18 U/L (15-37) Alanine Aminotransferase (ALT/SGPT) 24 U/L (12-78) Alkaline Phosphatase 75 U/L (46-116) Total Creatine Kinase 27 U/L (26-308) Total Protein 5.5 G/DL (6.4-8.2) L Albumin 2.4 G/DL (3.4-5.0) L Globulin 3.1 g/dL Albumin/Globulin Ratio 0.8 (1.0-2.7) L Current Medications Medications (Trade) Dose Ordered Sig/Pat Route PRN Reason Start Time Stop Time Status Last Admin Dose Admin Acetaminophen (Tylenol) 650 mg Q4H PRN ORAL Mild Pain or temp over 100.2 11/02/19 15:00 12/02/19 14:59 11/12/19 13:13 Albuterol Sulfate (Proventil) 2.5 mg Q4H PRN HHN Shortness of Breath 11/12/19 09:00 11/17/19 08:59 11/13/19 12:12 Alprazolam (Xanax) 0.25 mg TIDPRN PRN ORAL ANXIETY 11/14/19 08:15 11/21/19 08:14 Ceftriaxone Sodium 1 gm/ Dextrose 55 ml @ 110 mls/hr Q24H IVPB 11/13/19 17:00 11/20/19 16:59 11/14/19 17:03 Cetirizine HCl (ZyrTEC) 10 mg Q24H ORAL 11/04/19 09:15 01/30/20 10:59 11/14/19 09:02 Chlorhexidine Gluconate (Asia-Hex 2%) 1 applic DAILY@2000 TOPIC 10/30/19 20:00 01/28/20 19:59 11/13/19 20:12 Daptomycin 400 mg/ Sodium Chloride 55 ml @ 100 mls/hr Q24H IV 11/13/19 18:00 11/20/19 17:59 11/13/19 17:58 Folic Acid (Folate) 1 mg DAILY ORAL 11/05/19 09:00 12/05/19 08:59 11/14/19 09:02 Hydromorphone HCl (Dilaudid) 1 mg Q4H PRN SUBQ Severe Breakthru Pain (>7) 11/09/19 09:00 11/16/19 08:59 Iron Sucrose 100 mg/Sodium Chloride 60 ml @ 240 mls/hr BEDTIME IV 11/11/19 21:00 11/15/19 21:14 11/13/19 20:12 Ketorolac Tromethamine (Toradol 30mg) 30 mg Q6H PRN IV severe pain 7-10 11/12/19 08:30 11/17/19 08:29 11/14/19 00:07 Lamotrigine (LaMICtal) 200 mg QHS ORAL 10/30/19 21:00 11/29/19 20:59 11/13/19 20:12 Lorazepam (Ativan) 1 mg Q4H PRN SL Muscle Spasm 11/09/19 08:45 11/16/19 08:44 Metronidazole 100 ml @ 100 mls/hr Q8HR IVPB 11/13/19 22:00 11/20/19 21:59 11/14/19 14:51 Micafungin Sodium 150 mg/Sodium Chloride 110 ml @ 110 mls/hr Q24H IVPB 11/13/19 20:00 11/20/19 19:59 11/13/19 20:12 Nystatin (Nystatin) 5 ml QID ORAL 11/09/19 09:00 11/16/19 08:59 11/14/19 12:32 Ondansetron HCl (Zofran ODT) 4 mg Q4H PRN ORAL Nausea & Vomiting 11/14/19 08:15 12/14/19 08:14 11/14/19 09:03 Oxycodone/ Acetaminophen (Percocet 5-325) 1 tab Q4H PRN ORAL Moderate Pain (Pain Scale 4-6) 11/11/19 11:00 11/18/19 10:59 Patient Own Medication (Patient's Own Med) 1 ea QIDPRN PRN ORAL burning with urination 10/30/19 18:15 11/29/19 18:14 Patient Own Medication (Patient's Own Med) 1 ea TID ORAL 11/09/19 13:00 12/09/19 12:59 11/14/19 12:32 Starla Liriano MD Nov 14, 2019 18:03
[2019-11-14 20:00] VITALS: BP 119/71
[2019-11-14] MEDS: Dyna-Hex 2% Top Sol 2oz TOPIC SCH (20:48)
[2019-11-14] MEDS: NS IVPB SCH (20:49)
[2019-11-14] MEDS: Iron Sucrose 100 MG in NS 55 ML IV SCH (20:49)
[2019-11-14] MEDS: MICAFUNGIN IVPB SCH (20:49)
[2019-11-14] MEDS ORDERED: NS 275ml ONE (22:46)
[2019-11-15] VITALS: BP 109/66
[2019-11-15 04:30] VITALS: BP 99/65
[2019-11-15 06:37] LABS: BASOPHILS % (AUTO) 1.3 % (0.0-2.0); EOSINOPHILS % (AUTO) 4.3 % (0.0-3.0); HEMATOCRIT 25.3 % (37.0-47.0); HEMOGLOBIN 8.4 G/DL (12.0-16.0); LYMPHOCYTES % (AUTO) 8.5 % (20.0-45.0); MEAN CORPUSCULAR VOLUME 86 FL (80-99); MONOCYTES % (AUTO) 9.2 % (1.0-10.0); NEUTROPHILS % (AUTO) 76.7 % (45.0-75.0); PLATELET COUNT 440 K/UL (150-450); RED BLOOD COUNT 2.94 M/UL (4.20-5.40); RED CELL DISTRIBUTION WIDTH 11.9 % (11.6-14.8); WHITE BLOOD COUNT 14.3 K/UL (4.8-10.8)
[2019-11-15 08:00] VITALS: BP 106/70
[2019-11-15 08:06] LABS: ALBUMIN 2.5 G/DL (3.4-5.0); ALBUMIN/GLOBULIN RATIO 0.8 (1.0-2.7); BILIRUBIN,TOTAL 0.3 MG/DL (0.2-1.0); CALCIUM 8.8 MG/DL (8.5-10.1); CREATININE 1.2 MG/DL (0.55-1.30); POTASSIUM 3.7 MMOL/L (3.5-5.1)
[2019-11-15] MEDS: ELMIRON 100 MG ORAL SCH ×3 (08:54→18:06)
[2019-11-15] MEDS: Nystatin Susp 500,000 units/5ml ORAL SCH ×4 (08:54→20:50)
[2019-11-15] MEDS ORDERED: Vitamin B12 1000mcg/ml Inj IM SCH (09:45)
--- NOTE | 2019-11-15 09:55 | General Progress Note ---
Progress Note Progress Note AVSS Nausea when IV meds given. Tolerating BCIR diet 60% Abdomen soft, incision clean, stoma healing with lateral area improved Urine 2100 BCIR ileo 450 WBC up 14,300 Hgb 8.4 Cr down 1.2 Albumin 2.5 Imp: Leukocytosis Plan: Remove PICC and start peripheral heplock for meds f/u labs maintain indwelling Canseco pouch catheter to continuous drainage Jose Aceves MD Nov 15, 2019 09:55
[2019-11-15] MEDS ORDERED: HYDROmorphone 1mg/ml Carpuject SUBQ PRN (10:00)
[2019-11-15] MEDS ORDERED: Albuterol ud Inhalation HHN PRN (10:00)
[2019-11-15] MEDS ORDERED: LORazepam 1mg tab SL PRN (10:00)
[2019-11-15] MEDS: Ketorolac 30mg Inj IV PRN ×2 (11:12→20:46)
--- NOTE | 2019-11-15 13:15 | Infectious Diseases Prog Note ---
Assessment/Plan Assessment/Plan ASSESSMENT AND PLAN: 1. leukocytosis, fevers, ? sepsis, refractory thrush, ? picc line infection, ua - le 1+, 0-2 wbc, urine culture < 10,[address] - no fluid collection, ? early ileus/bowel obstruction per report OMAR - ? zosyn, ? vancomycin urine culture with e.coli - <10,000 organisms and ua benign - unlikely significant - ceftriaxone, daptomycin, discontinue flagyl - micafungin for refractory thrush - picc line to be removed - monitor labs - leukocytosis persists, fevers resolved - d/w Dr. Aceves and patient and RN - continue management per Dr. Aceves 2. Canseco ileostomy, status post revision. 3. The patient has history of ulcerative colitis. 4. Multiple abdominal surgeries including cholecystectomy. 5. History of colectomy. 6. History of asthma. 7. Anxiety and depression. 8. Fibromyalgia. 9. Ulcerative colitis. 10. History of . 11. History of Canseco continent ileostomy. 12. History of hysterectomy. 13. Allergies to Cipro, codeine, metoclopramide, sulfa, and sutures. 14. Family history is noncontributory. 15. Social history is negative. 16. MAR is noted. 17. Case was discussed with RN. 18. Case was discussed with Dr. Aceves. 19. Continue treatment per primary consultants. 20. Case was discussed with the patient. Subjective Constitutional: Denies: fever HEENT: Reports: other - + thrush Respiratory: Denies: shortness of breath Cardiovascular: Denies: chest pain Neurologic: Denies: headache Psychiatric: Denies: depression Skin: Denies: rash Allergies: Coded Allergies: CODEINE (Verified Allergy, Unknown, 01/09/19) METOCLOPRAMIDE (Verified Allergy, Unknown, 01/09/19) SULFA (SULFONAMIDE ANTIBIOTICS) (Verified Allergy, Unknown, 01/09/19) SUTURE (Verified Allergy, Unknown, 01/09/19) VICRYL CIPROFLOXACIN (Verified Adverse Reaction, Unknown, 01/09/19) ANGRY, CRYING, VERY EMOTIONAL. Objective Last 24 Hour Vital Signs Date Time Temp Pulse Resp B/P (MAP) Pulse Ox O2 Delivery O2 Flow Rate FiO2 11/15/19 11:42 98.4 11/15/19 09:00 Room Air 11/15/19 08:00 98.4 104 18 106/70 (82) 98 11/15/19 07:43 86 18 97 Room Air 21 11/15/19 04:30 98.6 103 18 99/65 (76) 97 11/15/19 00:00 98.2 96 18 109/66 (80) 99 11/14/19 21:00 Room Air 11/14/19 20:00 99.0 89 18 119/71 (87) 97 11/14/19 19:07 84 18 98 Room Air 21 11/14/19 18:29 98.6 11/14/19 16:00 98.6 88 18 115/71 (86) 98 Height (Feet): 5 Height (Inches): 4.00 Weight (Pounds): 145 General Appearance: no acute distress HEENT: normocephalic, atraumatic, anicteric, thrush Respiratory/Chest: no accessory muscle use Cardiovascular: normal rate Abdomen: normal bowel sounds, soft, non tender Chest x-ray - 10/30/19 - FINDINGS: Lungs: The lungs are well aerated. Pleural space: Unremarkable. No pneumothorax. Heart: Cardiomediastinal silhouette unremarkable Mediastinum: See above. Bones/joints: Gentle levoscoliosis of the lower thoracic spine. Osteopenia. The ribs are grossly unremarkable. IMPRESSION: No active disease. CT abdomen and pelvis - 11/10 - IMPRESSION: 1. Pneumoperitoneum. Given postsurgical changes, this is likely post surgical in nature. However, recommend clinical correlation. 2. Subcutaneous inflammatory change of the anterior pelvic soft tissues. No drainable fluid collection. 3. Dilation of the small bowel measuring up to 4.4 cm. Findings are concerning for ileus/early small bowel obstruction. 4. Postsurgical changes from ileostomy. Limited evaluation of the pelvic fluid filled structures as oral contrast has not transited this point. 5. Air within the urinary bladder. Recommend correlation with clinical history for recent catheterization. UTI is also in the differential. Chest x-ray - 11/12/19 - Procedure: XRAY Chest 1v Indication: Shortness of breath Technique: One view of the chest Comparison: 10/30/2019 Findings: Lungs and pleural spaces are clear. Heart size is normal. There is a left arm PICC in place. Impression: No acute process Laboratory Tests Test 11/15/19 05:05 White Blood Count 14.3 K/UL (4.8-10.8) H Red Blood Count 2.94 M/UL (4.20-5.40) L Hemoglobin 8.4 G/DL (12.0-16.0) L Hematocrit 25.3 % (37.0-47.0) L Mean Corpuscular Volume 86 FL (80-99) Mean Corpuscular Hemoglobin 28.5 PG (27.0-31.0) Mean Corpuscular Hemoglobin Concent 33.2 G/DL (32.0-36.0) Red Cell Distribution Width 11.9 % (11.6-14.8) Platelet Count 440 K/UL (150-450) Mean Platelet Volume 5.2 FL (6.5-10.1) L Neutrophils (%) (Auto) 76.7 % (45.0-75.0) H Lymphocytes (%) (Auto) 8.5 % (20.0-45.0) L Monocytes (%) (Auto) 9.2 % (1.0-10.0) Eosinophils (%) (Auto) 4.3 % (0.0-3.0) H Basophils (%) (Auto) 1.3 % (0.0-2.0) Sodium Level 139 MMOL/L (136-145) Potassium Level 3.7 MMOL/L (3.5-5.1) Chloride Level 106 MMOL/L (98-107) Carbon Dioxide Level 24 MMOL/L (21-32) Anion Gap 9 mmol/L (5-15) Blood Urea Nitrogen 5 mg/dL (7-18) L Creatinine 1.2 MG/DL (0.55-1.30) Estimat Glomerular Filtration Rate 51.7 mL/min (>60) Glucose Level 91 MG/DL (74-106) Calcium Level 8.8 MG/DL (8.5-10.1) Total Bilirubin 0.3 MG/DL (0.2-1.0) Aspartate Amino Transf (AST/SGOT) 16 U/L (15-37) Alanine Aminotransferase (ALT/SGPT) 22 U/L (12-78) Alkaline Phosphatase 86 U/L (46-116) Total Protein 5.6 G/DL (6.4-8.2) L Albumin 2.5 G/DL (3.4-5.0) L Globulin 3.1 g/dL Albumin/Globulin Ratio 0.8 (1.0-2.7) L Current Medications Medications (Trade) Dose Ordered Sig/Pat Route PRN Reason Start Time Stop Time Status Last Admin Dose Admin Acetaminophen (Tylenol) 650 mg Q4H PRN ORAL Mild Pain or temp over 100.2 11/02/19 15:00 12/02/19 14:59 11/12/19 13:13 Albuterol Sulfate (Proventil) 2.5 mg Q4H PRN HHN Shortness of Breath 11/15/19 10:00 11/20/19 09:59 Alprazolam (Xanax) 0.25 mg TIDPRN PRN ORAL ANXIETY 11/14/19 08:15 11/21/19 08:14 Ceftriaxone Sodium 1 gm/ Dextrose 55 ml @ 110 mls/hr Q24H IVPB 11/13/19 17:00 11/20/19 16:59 11/14/19 17:03 Cetirizine HCl (ZyrTEC) 10 mg Q24H ORAL 11/04/19 09:15 01/30/20 10:59 11/15/19 08:55 Chlorhexidine Gluconate (Asia-Hex 2%) 1 applic DAILY@2000 TOPIC 10/30/19 20:00 01/28/20 19:59 11/14/19 20:48 Daptomycin 400 mg/ Sodium Chloride 55 ml @ 100 mls/hr Q24H IV 11/13/19 18:00 11/20/19 17:59 11/14/19 17:58 Folic Acid (Folate) 1 mg DAILY ORAL 11/05/19 09:00 12/05/19 08:59 11/15/19 08:55 Hydromorphone HCl (Dilaudid) 1 mg Q4H PRN SUBQ Severe Breakthru Pain (>7) 11/15/19 10:00 11/22/19 09:59 Iron Sucrose 100 mg/Sodium Chloride 60 ml @ 240 mls/hr BEDTIME IV 11/11/19 21:00 11/15/19 21:14 11/14/19 20:49 Ketorolac Tromethamine (Toradol 30mg) 30 mg Q6H PRN IV severe pain 7-10 11/15/19 10:00 11/20/19 09:59 11/15/19 11:12 Lamotrigine (LaMICtal) 200 mg QHS ORAL 10/30/19 21:00 11/29/19 20:59 11/14/19 20:49 Lorazepam (Ativan) 1 mg Q4H PRN SL Muscle Spasm 11/15/19 10:00 11/22/19 09:59 Metronidazole 100 ml @ 100 mls/hr Q8HR IVPB 11/13/19 22:00 11/20/19 21:59 11/15/19 05:42 Micafungin Sodium 150 mg/Sodium Chloride 110 ml @ 110 mls/hr Q24H IVPB 11/13/19 20:00 11/20/19 19:59 11/14/19 20:49 Nystatin (Nystatin) 5 ml QID ORAL 11/15/19 13:00 11/22/19 12:59 11/15/19 13:00 Ondansetron HCl (Zofran) 4 mg Q4H PRN IVP Nausea & Vomiting 11/15/19 11:00 12/15/19 10:59 11/15/19 11:12 Oxycodone/ Acetaminophen (Percocet 5-325) 1 tab Q4H PRN ORAL Moderate Pain (Pain Scale 4-6) 11/11/19 11:00 11/18/19 10:59 Patient Own Medication (Patient's Own Med) 1 ea QIDPRN PRN ORAL burning with urination 10/30/19 18:15 11/29/19 18:14 Patient Own Medication (Patient's Own Med) 1 ea TID ORAL 11/09/19 13:00 12/09/19 12:59 11/15/19 13:00 Starla Liriano MD Nov 15, 2019 13:15
[2019-11-15 16:00] VITALS: BP 121/85
[2019-11-15] MEDS: cefTRIAXone 1 GM in D5W 55 ML IVPB SCH (16:55)
[2019-11-15] MEDS: DAPTOmycin 400 MG in NS 55 ML IV SCH (18:06)
[2019-11-15 20:00] VITALS: BP 102/66
[2019-11-15] MEDS: Dyna-Hex 2% Top Sol 2oz TOPIC SCH ×2 (20:00→20:49)
[2019-11-15] MEDS: Iron Sucrose 100 MG in NS 55 ML IV SCH (20:50)
[2019-11-15] MEDS: MICAFUNGIN IVPB SCH (21:30)
[2019-11-15] MEDS: NS IVPB SCH (21:30)
[2019-11-16] VITALS: BP 107/71
[2019-11-16 04:00] VITALS: BP 107/78
[2019-11-16 06:40] LABS: EOSINOPHILS % (AUTO) 7.6 % (0.0-3.0); HEMATOCRIT 26.6 % (37.0-47.0); LYMPHOCYTES % (AUTO) 9.8 % (20.0-45.0); MEAN CORPUSCULAR VOLUME 86 FL (80-99); MONOCYTES % (AUTO) 10.1 % (1.0-10.0); NEUTROPHILS % (AUTO) 71.4 % (45.0-75.0); PLATELET COUNT 430 K/UL (150-450); RED CELL DISTRIBUTION WIDTH 12.1 % (11.6-14.8); WHITE BLOOD COUNT 15.4 K/UL (4.8-10.8)
[2019-11-16 07:15] LABS: ALBUMIN 2.5 G/DL (3.4-5.0); ALBUMIN/GLOBULIN RATIO 0.8 (1.0-2.7); BILIRUBIN,TOTAL 0.4 MG/DL (0.2-1.0); CREATININE 1.3 MG/DL (0.55-1.30); POTASSIUM 3.8 MMOL/L (3.5-5.1)
[2019-11-16 07:49] LABS: CREATINE KINASE 30 U/L (26-308)
[2019-11-16 08:00] VITALS: BP 114/78
[2019-11-16] MEDS ORDERED: oxyCODONE HCL/Acetaminophen 5/325mg ORAL PRN (09:04)
--- NOTE | 2019-11-16 09:20 | General Progress Note ---
Progress Note Progress Note AVSS Nausea much improved. Eating 50% of [facility] diet no significant abdominal pain. On rocephin, daptomycin and micafungin Abdomen soft, debbie removed, mild peristomal erythema ?yeast Urine 2124 [facility] ileo 850 WBC up 15,400 (PICC removed yesterday afternoon) Hgb 9.0 BUN 7 Cr 1.3 Albumin 2.5 Imp: Persistent leukocytosis ? etiology Plan: continue current regimen Nystatin cream to peristomal skin start [facility] self-intubation in AM If leukocytosis persists will need follow-up CT scan abd+pelvis with contrast Jose Aceves MD Nov 16, 2019 09:20
[2019-11-16] MEDS: ELMIRON 100 MG ORAL SCH ×3 (09:56→18:32)
[2019-11-16] MEDS: Nystatin Susp 500,000 units/5ml ORAL SCH ×4 (09:56→20:41)
[2019-11-16 11:46] VITALS: BP 114/78
--- NOTE | 2019-11-16 14:10 | Cardiology Report ---
APPROVED REPORT EKG Measurement Heart [id number] <Conclusion> Normal sinus rhythm Normal ECG
[2019-11-16 16:00] VITALS: BP 115/76
[2019-11-16] MEDS: cefTRIAXone 1 GM in D5W 55 ML IVPB SCH (17:41)
[2019-11-16] MEDS: DAPTOmycin 400 MG in NS 55 ML IV SCH (18:32)
[2019-11-16 20:00] VITALS: BP 108/67
[2019-11-16] MEDS: MICAFUNGIN IVPB SCH (20:41)
[2019-11-16] MEDS: NS IVPB SCH (20:41)
--- NOTE | 2019-11-16 21:52 | Infectious Diseases Prog Note ---
Assessment/Plan Assessment/Plan ASSESSMENT AND PLAN: 1. leukocytosis, fevers, ? sepsis, refractory thrush, ? picc line infection, ua - le 1+, 0-2 wbc, urine culture < 10,[address] - no fluid collection, ? early ileus/bowel obstruction per report OMAR - ? zosyn, ? vancomycin urine culture with e.coli - <10,000 organisms and ua benign - unlikely significant - ceftriaxone, daptomycin, discontinue flagyl - micafungin for refractory thrush - nystatin for possible peristomal fungal rash/erythema - picc line to be removed - cath tip negative, blood cultures negative - monitor labs - leukocytosis persists, fevers resolved - may need repeat CT scan for persistent leukocytosis - continue management per Dr. Aceves 2. Canseco ileostomy, status post revision. 3. The patient has history of ulcerative colitis. 4. Multiple abdominal surgeries including cholecystectomy. 5. History of colectomy. 6. History of asthma. 7. Anxiety and depression. 8. Fibromyalgia. 9. Ulcerative colitis. 10. History of . 11. History of Canseco continent ileostomy. 12. History of hysterectomy. 13. Allergies to Cipro, codeine, metoclopramide, sulfa, and sutures. 14. Family history is noncontributory. 15. Social history is negative. 16. MAR is noted. 17. Case was discussed with RN. 18. Case was discussed with Dr. Aceves. 19. Continue treatment per primary consultants. 20. Case was discussed with the patient. Subjective Constitutional: Reports: fatigue; Denies: fever HEENT: Reports: other - less thrush per patient ; Denies: congestion Respiratory: Denies: shortness of breath Cardiovascular: Denies: chest pain Gastrointestinal/Abdominal: Reports: nausea - less; Denies: vomiting, diarrhea Genitourinary: Reports: other - no colindres Neurologic: Denies: headache Psychiatric: Denies: depression Skin: Denies: rash Hematologic: Denies: bleeding Musculoskeletal: Reports: pain - controlled Allergies: Coded Allergies: CODEINE (Verified Allergy, Unknown, 01/09/19) METOCLOPRAMIDE (Verified Allergy, Unknown, 01/09/19) SULFA (SULFONAMIDE ANTIBIOTICS) (Verified Allergy, Unknown, 01/09/19) SUTURE (Verified Allergy, Unknown, 01/09/19) VICRYL CIPROFLOXACIN (Verified Adverse Reaction, Unknown, 01/09/19) ANGRY, CRYING, VERY EMOTIONAL. Objective Last 24 Hour Vital Signs Date Time Temp Pulse Resp B/P (MAP) Pulse Ox O2 Delivery O2 Flow Rate FiO2 11/16/19 19:07 95 18 100 Room Air 92 18 97 11/16/19 19:06 92 18 97 Room Air 21 11/16/19 16:00 99.4 96 16 115/76 (89) 98 11/16/19 11:46 98.9 86 16 114/78 (90) 98 11/16/19 09:00 Room Air 11/16/19 08:00 98.9 95 16 114/78 (90) 96 11/16/19 07:00 95 18 96 Room Air 21 11/16/19 04:00 98.2 91 18 107/78 (88) 99 11/16/19 00:00 98.4 89 18 107/71 (83) 97 Height (Feet): 5 Height (Inches): 4.00 Weight (Pounds): 145 General Appearance: no acute distress HEENT: normocephalic, atraumatic, anicteric, mucous membranes moist, thrush Respiratory/Chest: no respiratory distress, no accessory muscle use Cardiovascular: normal rate Abdomen: soft, non tender, non distended Genitourinary: other - no colindres Extremities: no cyanosis Skin: no rash Neurologic/Psychiatric: alert, oriented x 3, responsive Chest x-ray - 10/30/19 - FINDINGS: Lungs: The lungs are well aerated. Pleural space: Unremarkable. No pneumothorax. Heart: Cardiomediastinal silhouette unremarkable Mediastinum: See above. Bones/joints: Gentle levoscoliosis of the lower thoracic spine. Osteopenia. The ribs are grossly unremarkable. IMPRESSION: No active disease. CT abdomen and pelvis - 11/10 - IMPRESSION: 1. Pneumoperitoneum. Given postsurgical changes, this is likely post surgical in nature. However, recommend clinical correlation. 2. Subcutaneous inflammatory change of the anterior pelvic soft tissues. No drainable fluid collection. 3. Dilation of the small bowel measuring up to 4.4 cm. Findings are concerning for ileus/early small bowel obstruction. 4. Postsurgical changes from ileostomy. Limited evaluation of the pelvic fluid filled structures as oral contrast has not transited this point. 5. Air within the urinary bladder. Recommend correlation with clinical history for recent catheterization. UTI is also in the differential. Chest x-ray - 11/12/19 - Procedure: XRAY Chest 1v Indication: Shortness of breath Technique: One view of the chest Comparison: 10/30/2019 Findings: Lungs and pleural spaces are clear. Heart size is normal. There is a left arm PICC in place. Impression: No acute process Microbiology Date/Time Source Procedure Growth Status 11/15/19 15:10 Other(Specify in comment) Catheter Tip Culture - Preliminary NO GROWTH Resulted Laboratory Tests Test 11/16/19 05:10 White Blood Count 15.4 K/UL (4.8-10.8) H Red Blood Count 3.10 M/UL (4.20-5.40) L Hemoglobin 9.0 G/DL (12.0-16.0) L Hematocrit 26.6 % (37.0-47.0) L Mean Corpuscular Volume 86 FL (80-99) Mean Corpuscular Hemoglobin 29.2 PG (27.0-31.0) Mean Corpuscular Hemoglobin Concent 34.0 G/DL (32.0-36.0) Red Cell Distribution Width 12.1 % (11.6-14.8) Platelet Count 430 K/UL (150-450) Mean Platelet Volume 5.1 FL (6.5-10.1) L Neutrophils (%) (Auto) 71.4 % (45.0-75.0) Lymphocytes (%) (Auto) 9.8 % (20.0-45.0) L Monocytes (%) (Auto) 10.1 % (1.0-10.0) H Eosinophils (%) (Auto) 7.6 % (0.0-3.0) H Basophils (%) (Auto) 1.0 % (0.0-2.0) Sodium Level 140 MMOL/L (136-145) Potassium Level 3.8 MMOL/L (3.5-5.1) Chloride Level 106 MMOL/L (98-107) Carbon Dioxide Level 25 MMOL/L (21-32) Anion Gap 9 mmol/L (5-15) Blood Urea Nitrogen 7 mg/dL (7-18) Creatinine 1.3 MG/DL (0.55-1.30) Estimat Glomerular Filtration Rate 47.2 mL/min (>60) Glucose Level 80 MG/DL (74-106) Calcium Level 9.0 MG/DL (8.5-10.1) Total Bilirubin 0.4 MG/DL (0.2-1.0) Aspartate Amino Transf (AST/SGOT) 13 U/L (15-37) L Alanine Aminotransferase (ALT/SGPT) 19 U/L (12-78) Alkaline Phosphatase 86 U/L (46-116) Total Creatine Kinase 30 U/L (26-308) Total Protein 5.7 G/DL (6.4-8.2) L Albumin 2.5 G/DL (3.4-5.0) L Globulin 3.2 g/dL Albumin/Globulin Ratio 0.8 (1.0-2.7) L Current Medications Medications (Trade) Dose Ordered Sig/Pat Route PRN Reason Start Time Stop Time Status Last Admin Dose Admin Acetaminophen (Tylenol) 650 mg Q4H PRN ORAL Mild Pain or temp over 100.2 11/02/19 15:00 12/02/19 14:59 11/12/19 13:13 Albuterol Sulfate (Proventil) 2.5 mg Q4H PRN HHN Shortness of Breath 11/15/19 10:00 11/20/19 09:59 11/16/19 19:07 Alprazolam (Xanax) 0.25 mg TIDPRN PRN ORAL ANXIETY 11/14/19 08:15 11/21/19 08:14 Ceftriaxone Sodium 1 gm/ Dextrose 55 ml @ 110 mls/hr Q24H IVPB 11/13/19 17:00 11/20/19 16:59 11/16/19 17:41 Cetirizine HCl (ZyrTEC) 10 mg Q24H ORAL 11/04/19 09:15 01/30/20 10:59 11/16/19 09:57 Daptomycin 400 mg/ Sodium Chloride 55 ml @ 100 mls/hr Q24H IV 11/13/19 18:00 11/20/19 17:59 11/16/19 18:32 Folic Acid (Folate) 1 mg DAILY ORAL 11/05/19 09:00 12/05/19 08:59 11/16/19 09:56 Hydromorphone HCl (Dilaudid) 1 mg Q4H PRN SUBQ Severe Breakthru Pain (>7) 11/15/19 10:00 11/22/19 09:59 Ketorolac Tromethamine (Toradol 30mg) 30 mg Q6H PRN IV severe pain 7-10 11/15/19 10:00 11/20/19 09:59 11/15/19 20:46 Lamotrigine (LaMICtal) 200 mg QHS ORAL 10/30/19 21:00 11/29/19 20:59 11/16/19 20:41 Lorazepam (Ativan) 1 mg Q4H PRN SL Muscle Spasm 11/15/19 10:00 11/22/19 09:59 Micafungin Sodium 150 mg/Sodium Chloride 110 ml @ 110 mls/hr Q24H IVPB 11/13/19 20:00 11/20/19 19:59 11/16/19 20:41 Nystatin (Nystatin Cr) 1 applic TID@0900,1500,2100 TOPIC 11/16/19 10:00 02/14/20 09:59 11/16/19 20:42 Nystatin (Nystatin) 5 ml QID ORAL 11/15/19 13:00 11/22/19 12:59 11/16/19 20:41 Ondansetron HCl (Zofran) 4 mg Q4H PRN IVP Nausea & Vomiting 11/15/19 11:00 12/15/19 10:59 11/15/19 20:49 Oxycodone/ Acetaminophen (Percocet 5-325) 1 tab Q4H PRN ORAL Moderate Pain (Pain Scale 4-6) 11/16/19 09:04 11/23/19 09:03 Patient Own Medication (Patient's Own Med) 1 ea QIDPRN PRN ORAL burning with urination 10/30/19 18:15 11/29/19 18:14 Patient Own Medication (Patient's Own Med) 1 ea TID ORAL 11/09/19 13:00 12/09/19 12:59 11/16/19 18:32 Starla Liriano MD Nov 16, 2019 21:51
[2019-11-16] MEDS: Ketorolac 30mg Inj IV PRN (22:02)
[2019-11-17] VITALS (7 sets, daily range): BP systolic 100–126; BP diastolic 52–76
[2019-11-17 06:27] LABS: BASOPHILS % (AUTO) 1.3 % (0.0-2.0); EOSINOPHILS % (AUTO) 9.4 % (0.0-3.0); HEMATOCRIT 26.2 % (37.0-47.0); HEMOGLOBIN 8.8 G/DL (12.0-16.0); LYMPHOCYTES % (AUTO) 18.5 % (20.0-45.0); MEAN CORPUSCULAR VOLUME 86 FL (80-99); MONOCYTES % (AUTO) 9.4 % (1.0-10.0); NEUTROPHILS % (AUTO) 61.4 % (45.0-75.0); PLATELET COUNT 466 K/UL (150-450); RED BLOOD COUNT 3.06 M/UL (4.20-5.40); WHITE BLOOD COUNT 12.6 K/UL (4.8-10.8)
[2019-11-17 06:52] LABS: ALBUMIN 2.4 G/DL (3.4-5.0); ALBUMIN/GLOBULIN RATIO 0.7 (1.0-2.7); BILIRUBIN,TOTAL 0.3 MG/DL (0.2-1.0); CALCIUM 8.9 MG/DL (8.5-10.1); CREATININE 1.2 MG/DL (0.55-1.30); POTASSIUM 3.8 MMOL/L (3.5-5.1)
--- NOTE | 2019-11-17 08:58 | General Progress Note ---
Progress Note Progress Note AVSS Feeling better again today. Eating 50% + Ensure 2/day Abdomen soft, well healed. Peristomal rash better with nystatin Urine 2600 [facility] ileo 1080 WBC 12,600 down Hgb 8.8 Platelets up 466,000 Cr down 1.2 albumin 2.4 Imp: Persistent leukocytosis on antibiotics, improved Plan: continue current regimen maintain indwelling pouch catheter to drainage f/u labs Jose Aceves MD Nov 17, 2019 08:58
[2019-11-17] MEDS: ELMIRON 100 MG ORAL SCH ×3 (10:01→17:44)
[2019-11-17] MEDS: Nystatin Susp 500,000 units/5ml ORAL SCH ×4 (10:01→20:25)
[2019-11-17] MEDS: cefTRIAXone 1 GM in D5W 55 ML IVPB SCH (17:44)
[2019-11-17] MEDS ORDERED: NS 275ml ONE (18:00)
[2019-11-17] MEDS ORDERED: NS Irrig 1000ml ONE (18:00)
[2019-11-17] MEDS: DAPTOmycin 400 MG in NS 55 ML IV SCH (18:39)
[2019-11-17] MEDS: NS IVPB SCH (20:25)
[2019-11-17] MEDS: MICAFUNGIN IVPB SCH (20:25)
[2019-11-17] MEDS: Ketorolac 30mg Inj IV PRN (23:18)
[2019-11-18 03:47] VITALS: BP 108/68
[2019-11-18 06:10] LABS: BASOPHILS % (AUTO) 1.1 % (0.0-2.0); EOSINOPHILS % (AUTO) 12.2 % (0.0-3.0); HEMATOCRIT 28.1 % (37.0-47.0); HEMOGLOBIN 9.3 G/DL (12.0-16.0); LYMPHOCYTES % (AUTO) 20.4 % (20.0-45.0); MEAN CORPUSCULAR VOLUME 86 FL (80-99); MONOCYTES % (AUTO) 9.8 % (1.0-10.0); NEUTROPHILS % (AUTO) 56.5 % (45.0-75.0); PLATELET COUNT 542 K/UL (150-450); RED BLOOD COUNT 3.28 M/UL (4.20-5.40); WHITE BLOOD COUNT 12.2 K/UL (4.8-10.8)
[2019-11-18 06:40] LABS: CALCIUM 8.8 MG/DL (8.5-10.1); CREATININE 1.2 MG/DL (0.55-1.30); POTASSIUM 3.9 MMOL/L (3.5-5.1)
[2019-11-18 08:00] VITALS: BP 110/70
[2019-11-18] MEDS: Nystatin Susp 500,000 units/5ml ORAL SCH ×4 (08:56→20:32)
[2019-11-18] MEDS: ELMIRON 100 MG ORAL SCH ×3 (09:00→17:48)
[2019-11-18] MEDS ORDERED: Tubing IV Secondary IV ONE (09:29)
[2019-11-18] MEDS ORDERED: NS Irrig 1000ml ONE (09:29)
[2019-11-18] MEDS ORDERED: Omnipaque-300 100ml vial INJ PRN (09:45)
--- NOTE | 2019-11-18 09:50 | General Progress Note ---
Progress Note Progress Note AVSS Eating and generally feeling well. Had some abd aching until antibiotics given last night then resolved. Abdomen soft, stoma irregular but intact Urine 1575 [facility] ileo 620 WBC 12,300 (1.2% eos) Hgb 9.3 Platelets up 542,000 BMP okay Imp: Persistent leukocytosis Plan: follow-up STAT CT scan abd+pelvis with contrast f/u labs in AM Jose Aceves MD Nov 18, 2019 09:50
[2019-11-18] MEDS ORDERED: Albuterol ud Inhalation HHN PRN (10:00)
[2019-11-18 12:00] VITALS: BP 104/64
--- NOTE | 2019-11-18 13:31 | Diagnostic Imaging Report ---
EXAM: CT Abdomen and Pelvis With Intravenous Contrast CLINICAL HISTORY: ABSCESS TECHNIQUE: Axial computed tomography images of the abdomen and pelvis with intravenous contrast. Sagittal and coronal reformatted images were created and reviewed. CTDI is 5.40 mGy and DLP is 262.50 mGy-cm. One or more of the following dose reduction techniques were used: automated exposure control, adjustment of the mA and/or kV according to patient size, use of iterative reconstruction technique. COMPARISON: CT of the abdomen and pelvis dated 11/11/19 FINDINGS: Lung bases: Unremarkable. No consolidation. No effusions. ABDOMEN: Liver: Unremarkable. No suspicious parenchymal lesions Gallbladder and bile ducts: Status post cholecystectomy. No ductal dilation. Pancreas: Unremarkable. No mass. No ductal dilation. Spleen: Unremarkable. No splenomegaly. Adrenals: Unremarkable. No mass. Kidneys and ureters: Unremarkable. No solid mass. No hydronephrosis. Stomach and bowel: Status post colectomy with ileostomy. Stable positioning of the percutaneous ileostomy catheter. 5.1 x 3.5 x 3.1 cm air-fluid collection in the anterior pelvis, anterior to the loop with a ileostomy catheter. PELVIS: Appendix: Surgically absent. Bladder: Foci of nondependent air in the urinary bladder lumen. No focal wall thickening seen. No radiodense stones. Reproductive: Unremarkable as visualized. ABDOMEN and PELVIS: Intraperitoneal space: Unremarkable. No free air. No significant fluid collection. Bones/joints: No acute fracture. No dislocation. Soft tissues: Unremarkable. Vasculature: Unremarkable. No abdominal aortic aneurysm. Lymph nodes: Unremarkable. No enlarged lymph nodes. IMPRESSION: 1. Status post colectomy with ileostomy. Stable positioning of the percutaneous ileostomy catheter. 2. 5.1 x 3.5 x 3.1 cm air-fluid collection in the anterior pelvis, anterior to the loop with ileostomy catheter. This is concerning for abscess.
[2019-11-18 16:00] VITALS: BP 109/70
[2019-11-18] MEDS: Hydrocortisone 1% Cr TOPIC SCH ×2 (17:20→17:49)
[2019-11-18] MEDS: cefTRIAXone 1 GM in D5W 55 ML IVPB SCH (17:20)
--- NOTE | 2019-11-18 18:38 | Infectious Diseases Prog Note ---
Assessment/Plan Assessment/Plan ASSESSMENT AND PLAN: 1. leukocytosis, fevers, ? sepsis, refractory thrush, ? picc line infection, ua - le 1+, 0-2 wbc, urine culture < 10,000 gram negative OMAR - ? zosyn, ? vancomycin CT abdomen and pelvis - 11/18/19 - pelvic fluid collection, concerning for abscess line cath tip - no growth, blood cultures negative - meropenem, discontinue other antibiotics - CT guided drain of possible pelvic abscess/fluid collection - micafungin for refractory thrush - mildly improved - nystatin for possible peristomal fungal rash/erythema - picc line to be removed - cath tip negative, blood cultures negative - monitor labs - leukocytosis persists, fevers resolved - continue management per Dr. Aceves - d/w Dr. Aceves 2. Canseco ileostomy, status post revision. 3. The patient has history of ulcerative colitis. 4. Multiple abdominal surgeries including cholecystectomy. 5. History of colectomy. 6. History of asthma. 7. Anxiety and depression. 8. Fibromyalgia. 9. Ulcerative colitis. 10. History of . 11. History of Canseco continent ileostomy. 12. History of hysterectomy. 13. Allergies to Cipro, codeine, metoclopramide, sulfa, and sutures. 14. Family history is noncontributory. 15. Social history is negative. 16. MAR is noted. 17. Case was discussed with RN. 18. Case was discussed with Dr. Aceves. 19. Continue treatment per primary consultants. 20. Case was discussed with the patient. Subjective Constitutional: Denies: fever HEENT: Denies: congestion Respiratory: Denies: shortness of breath Cardiovascular: Denies: chest pain Gastrointestinal/Abdominal: Denies: nausea, vomiting Genitourinary: Reports: other - no colindres Neurologic: Denies: headache Psychiatric: Denies: depression Skin: Denies: rash Endocrine: Denies: other Hematologic: Denies: bleeding Musculoskeletal: Denies: pain Allergies: Coded Allergies: CODEINE (Verified Allergy, Unknown, 01/09/19) METOCLOPRAMIDE (Verified Allergy, Unknown, 01/09/19) SULFA (SULFONAMIDE ANTIBIOTICS) (Verified Allergy, Unknown, 01/09/19) SUTURE (Verified Allergy, Unknown, 01/09/19) VICRYL CIPROFLOXACIN (Verified Adverse Reaction, Unknown, 01/09/19) ANGRY, CRYING, VERY EMOTIONAL. Objective Last 24 Hour Vital Signs Date Time Temp Pulse Resp B/P (MAP) Pulse Ox O2 Delivery O2 Flow Rate FiO2 11/18/19 16:00 99.1 89 18 109/70 (83) 97 11/18/19 12:00 98.1 85 18 104/64 (77) 98 11/18/19 09:00 Room Air 11/18/19 08:00 97.7 82 20 110/70 (83) 95 11/18/19 03:47 97.8 82 17 108/68 (81) 97 11/17/19 23:34 99.1 93 16 117/68 (84) 99 11/17/19 21:00 Room Air 11/17/19 20:00 99.4 81 18 110/67 (81) 98 Height (Feet): 5 Height (Inches): 4.00 Weight (Pounds): 145 General Appearance: no acute distress HEENT: normocephalic, atraumatic, anicteric, mucous membranes moist, thrush - less Respiratory/Chest: lungs clear, normal breath sounds, no respiratory distress Cardiovascular: normal rate, regular rhythm Abdomen: normal bowel sounds, soft, non tender, no organomegaly Genitourinary: other - no colindres Extremities: no cyanosis Skin: no rash 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 Pleural space: Unremarkable. No pneumothorax. Heart: Cardiomediastinal silhouette unremarkable Mediastinum: See above. Bones/joints: Gentle levoscoliosis of the lower thoracic spine. Osteopenia. The ribs are grossly unremarkable. IMPRESSION: No active disease. CT abdomen and pelvis - 11/10 - IMPRESSION: 1. Pneumoperitoneum. Given postsurgical changes, this is likely post surgical in nature. However, recommend clinical correlation. 2. Subcutaneous inflammatory change of the anterior pelvic soft tissues. No drainable fluid collection. 3. Dilation of the small bowel measuring up to 4.4 cm. Findings are concerning for ileus/early small bowel obstruction. 4. Postsurgical changes from ileostomy. Limited evaluation of the pelvic fluid filled structures as oral contrast has not transited this point. 5. Air within the urinary bladder. Recommend correlation with clinical history for recent catheterization. UTI is also in the differential. Chest x-ray - 11/12/19 - Procedure: XRAY Chest 1v Indication: Shortness of breath Technique: One view of the chest Comparison: 10/30/2019 Findings: Lungs and pleural spaces are clear. Heart size is normal. There is a left arm PICC in place. Impression: No acute process CT abdomen and pelvis - - IMPRESSION: 1. Status post colectomy with ileostomy. Stable positioning of the percutaneous ileostomy catheter. 2. 5.1 x 3.5 x 3.1 cm air-fluid collection in the anterior pelvis, anterior to the loop with ileostomy catheter. This is concerning for abscess. Microbiology Date/Time Source Procedure Growth Status 11/15/19 15:10 Other(Specify in comment) Catheter Tip Culture - Preliminary NO GROWTH AFTER 48 HOURS Resulted 11/10/19 21:50 Blood Blood Culture - Final NO GROWTH AFTER 5 DAYS Complete 11/10/19 10:10 Urine,Clean Catch Urine Culture - Final Escherichia Coli Complete 10/30/19 14:40 Nasopharynx SARS-CoV-2 RdRp Gene Assay - Final Complete Laboratory Tests Test 11/18/19 05:20 White Blood Count 12.2 K/UL (4.8-10.8) H Red Blood Count 3.28 M/UL (4.20-5.40) L Hemoglobin 9.3 G/DL (12.0-16.0) L Hematocrit 28.1 % (37.0-47.0) L Mean Corpuscular Volume 86 FL (80-99) Mean Corpuscular Hemoglobin 28.3 PG (27.0-31.0) Mean Corpuscular Hemoglobin Concent 33.0 G/DL (32.0-36.0) Red Cell Distribution Width 12.0 % (11.6-14.8) Platelet Count 542 K/UL (150-450) H Mean Platelet Volume 4.8 FL (6.5-10.1) L Neutrophils (%) (Auto) 56.5 % (45.0-75.0) Lymphocytes (%) (Auto) 20.4 % (20.0-45.0) Monocytes (%) (Auto) 9.8 % (1.0-10.0) Eosinophils (%) (Auto) 12.2 % (0.0-3.0) H Basophils (%) (Auto) 1.1 % (0.0-2.0) Sodium Level 141 MMOL/L (136-145) Potassium Level 3.9 MMOL/L (3.5-5.1) Chloride Level 108 MMOL/L (98-107) H Carbon Dioxide Level 25 MMOL/L (21-32) Anion Gap 8 mmol/L (5-15) Blood Urea Nitrogen 8 mg/dL (7-18) Creatinine 1.2 MG/DL (0.55-1.30) Estimat Glomerular Filtration Rate 51.7 mL/min (>60) Glucose Level 87 MG/DL (74-106) Calcium Level 8.8 MG/DL (8.5-10.1) Current Medications Medications (Trade) Dose Ordered Sig/Pat Route PRN Reason Start Time Stop Time Status Last Admin Dose Admin Acetaminophen (Tylenol) 650 mg Q4H PRN ORAL Mild Pain or temp over 100.2 11/02/19 15:00 12/02/19 14:59 11/12/19 13:13 Albuterol Sulfate (Proventil) 2.5 mg Q4H PRN HHN Shortness of Breath 11/18/19 10:00 11/23/19 09:59 Alprazolam (Xanax) 0.25 mg TIDPRN PRN ORAL ANXIETY 11/14/19 08:15 11/21/19 08:14 Barium Sulfate (Readi-Cat 2) 450 ml NOW PRN ORAL Radiology Procedure 11/18/19 09:45 11/20/19 09:44 Ceftriaxone Sodium 1 gm/ Dextrose 55 ml @ 110 mls/hr Q24H IVPB 11/13/19 17:00 11/20/19 16:59 11/18/19 17:20 Cetirizine HCl (ZyrTEC) 10 mg Q24H ORAL 11/04/19 09:15 01/30/20 10:59 11/18/19 08:56 Daptomycin 400 mg/ Sodium Chloride 55 ml @ 100 mls/hr Q24H IV 11/13/19 18:00 11/20/19 17:59 11/17/19 18:39 Folic Acid (Folate) 1 mg DAILY ORAL 11/05/19 09:00 12/05/19 08:59 11/18/19 08:56 Hydrocortisone (Hydrocortisone) 1 applic TID TOPIC 11/18/19 16:30 02/16/20 16:29 11/18/19 17:20 Hydromorphone HCl (Dilaudid) 1 mg Q4H PRN SUBQ Severe Breakthru Pain (>7) 11/15/19 10:00 11/22/19 09:59 Iohexol (OMNIPAQUE-300 100ml) 100 ml NOW PRN INJ Radiology Procedure 11/18/19 09:45 11/20/19 09:44 Ketorolac Tromethamine (Toradol 30mg) 30 mg Q6H PRN IV severe pain 7-10 11/18/19 10:00 11/23/19 09:59 Lamotrigine (LaMICtal) 200 mg QHS ORAL 10/30/19 21:00 11/29/19 20:59 11/17/19 20:26 Lidocaine HCl (Xylocaine 1% 30ml) 30 ml ONCE PRN INJ CATH PLACEMENT 11/19/19 09:00 11/19/19 23:59 Lorazepam (Ativan) 1 mg Q4H PRN SL Muscle Spasm 11/15/19 10:00 11/22/19 09:59 Micafungin Sodium 150 mg/Sodium Chloride 110 ml @ 110 mls/hr Q24H IVPB 11/13/19 20:00 11/20/19 19:59 11/17/19 20:25 Nystatin (Nystatin Cr) 1 applic TID@0900,1500,2100 TOPIC 11/16/19 10:00 02/14/20 09:59 11/18/19 15:18 Nystatin (Nystatin) 5 ml QID ORAL 11/15/19 13:00 11/22/19 12:59 11/18/19 17:48 Ondansetron HCl (Zofran) 4 mg Q4H PRN IVP Nausea & Vomiting 11/15/19 11:00 12/15/19 10:59 11/17/19 20:25 Oxycodone/ Acetaminophen (Percocet 5-325) 1 tab Q4H PRN ORAL Moderate Pain (Pain Scale 4-6) 11/16/19 09:04 11/23/19 09:03 Patient Own Medication (Patient's Own Med) 1 ea QIDPRN PRN ORAL burning with urination 10/30/19 18:15 11/29/19 18:14 Patient Own Medication (Patient's Own Med) 1 ea TID ORAL 11/09/19 13:00 12/09/19 12:59 11/18/19 17:48 Sodium Bicarbonate (Sodium Bicarbonate 4%) 1 ml NOW PRN IV Radiology Procedure 11/19/19 09:00 11/19/19 23:59 Starla Liriano MD Nov 18, 2019 18:38
[2019-11-18 20:00] VITALS: BP 113/75
[2019-11-18] MEDS: NS IVPB SCH (20:00)
[2019-11-18] MEDS: MICAFUNGIN IVPB SCH (20:00)
[2019-11-18] MEDS: Ketorolac 30mg Inj IV PRN (20:37)
[2019-11-19] VITALS: BP 102/65
[2019-11-19 06:01] LABS: BASOPHILS % (AUTO) 1.5 % (0.0-2.0); EOSINOPHILS % (AUTO) 11.1 % (0.0-3.0); HEMATOCRIT 27.8 % (37.0-47.0); HEMOGLOBIN 9.2 G/DL (12.0-16.0); LYMPHOCYTES % (AUTO) 17.1 % (20.0-45.0); MEAN CORPUSCULAR VOLUME 85 FL (80-99); MONOCYTES % (AUTO) 9.7 % (1.0-10.0); NEUTROPHILS % (AUTO) 60.6 % (45.0-75.0); PLATELET COUNT 569 K/UL (150-450); RED BLOOD COUNT 3.26 M/UL (4.20-5.40); RED CELL DISTRIBUTION WIDTH 12.1 % (11.6-14.8); WHITE BLOOD COUNT 11.7 K/UL (4.8-10.8)
[2019-11-19 06:22] LABS: ALBUMIN 2.6 G/DL (3.4-5.0); ALBUMIN/GLOBULIN RATIO 0.6 (1.0-2.7); BILIRUBIN,TOTAL 0.3 MG/DL (0.2-1.0); CREATININE 1.2 MG/DL (0.55-1.30); POTASSIUM 3.9 MMOL/L (3.5-5.1)
[2019-11-19] MEDS: Nystatin Susp 500,000 units/5ml ORAL SCH ×4 (07:58→20:36)
[2019-11-19] MEDS: Ketorolac 30mg Inj IV PRN (07:59)
[2019-11-19] MEDS: ELMIRON 100 MG ORAL SCH ×3 (07:59→17:43)
[2019-11-19 08:00] VITALS: BP 111/77
[2019-11-19] MEDS ORDERED: ALPRAZolam 0.25mg tab ORAL PRN (08:30)
--- NOTE | 2019-11-19 08:49 | General Progress Note ---
Progress Note Progress Note AVSS Feeling okay. CT scan revealed probable 5cm abscess anterior pelvis adjacent to pouch abdomen soft Urine 2800 BCIR ileo 1170 ON Meropenem and Micafungin WBC 11,700 Hgb 9.2 Platelets up 569,000 chem okay Imp: Intra-abdominal abscess Plan: CT guided drainage of intra-abdominal abscess today Jose Aceves MD Nov 19, 2019 08:49
[2019-11-19] MEDS: Hydrocortisone 1% Cr TOPIC SCH ×3 (09:00→17:43)
[2019-11-19] MEDS ORDERED: Lidocaine 1% Plain 30 ml INJ PRN (09:00)
[2019-11-19] MEDS ORDERED: Sodium Bicarbonate 4% 2.4meq/5ml vial IV PRN (09:00)
[2019-11-19 12:00] VITALS: BP 102/70
--- NOTE | 2019-11-19 12:53 | Infectious Diseases Prog Note ---
Assessment/Plan Assessment/Plan ASSESSMENT AND PLAN: 1. leukocytosis, fevers, ? sepsis, refractory thrush, ? picc line infection, ua - le 1+, 0-2 wbc, urine culture < 10,000 gram negative OMAR - ? zosyn, ? vancomycin CT abdomen and pelvis - 11/18/19 - pelvic fluid collection, concerning for abscess line cath tip - no growth, blood cultures negative - meropenem and micafungin (for refractory thrush) - CT guided drain of possible pelvic abscess/fluid collection - nystatin for possible peristomal fungal rash/erythema - picc line to be removed - cath tip negative, blood cultures negative - monitor labs - leukocytosis better, fevers resolved - continue management per Dr. Aceves 2. Canseco ileostomy, status post revision. 3. The patient has history of ulcerative colitis. 4. Multiple abdominal surgeries including cholecystectomy. 5. History of colectomy. 6. History of asthma. 7. Anxiety and depression. 8. Fibromyalgia. 9. Ulcerative colitis. 10. History of . 11. History of Canseco continent ileostomy. 12. History of hysterectomy. 13. Allergies to Cipro, codeine, metoclopramide, sulfa, and sutures. 14. Family history is noncontributory. 15. Social history is negative. 16. MAR is noted. 17. Case was discussed with RN. 18. Case was discussed with Dr. Aceves. 19. Continue treatment per primary consultants. 20. Case was discussed with the patient. Subjective Constitutional: Denies: fever HEENT: Denies: congestion Respiratory: Denies: shortness of breath Cardiovascular: Denies: chest pain Gastrointestinal/Abdominal: Reports: other - some abdomnal pain Allergies: Coded Allergies: CODEINE (Verified Allergy, Unknown, 01/09/19) METOCLOPRAMIDE (Verified Allergy, Unknown, 01/09/19) SULFA (SULFONAMIDE ANTIBIOTICS) (Verified Allergy, Unknown, 01/09/19) SUTURE (Verified Allergy, Unknown, 01/09/19) VICRYL CIPROFLOXACIN (Verified Adverse Reaction, Unknown, 01/09/19) ANGRY, CRYING, VERY EMOTIONAL. Objective Last 24 Hour Vital Signs Date Time Temp Pulse Resp B/P (MAP) Pulse Ox O2 Delivery O2 Flow Rate FiO2 11/19/19 12:00 98.8 76 18 102/70 (81) 100 11/19/19 09:00 Room Air 11/19/19 08:00 98.7 82 18 111/77 (88) 98 11/19/19 00:00 98.4 82 17 102/65 (77) 96 11/18/19 21:00 Room Air 11/18/19 20:00 99.2 87 16 113/75 (88) 98 11/18/19 19:32 88 16 98 Room Air 21 11/18/19 16:00 99.1 89 18 109/70 (83) 97 Height (Feet): 5 Height (Inches): 5.00 Weight (Pounds): 143 General Appearance: no acute distress HEENT: normocephalic, atraumatic, anicteric, mucous membranes moist Respiratory/Chest: no respiratory distress, no accessory muscle use Cardiovascular: normal rate Abdomen: other - some pain, no rebound Genitourinary: other - no colindres Extremities: no cyanosis 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 Pleural space: Unremarkable. No pneumothorax. Heart: Cardiomediastinal silhouette unremarkable Mediastinum: See above. Bones/joints: Gentle levoscoliosis of the lower thoracic spine. Osteopenia. The ribs are grossly unremarkable. IMPRESSION: No active disease. CT abdomen and pelvis - 11/10 - IMPRESSION: 1. Pneumoperitoneum. Given postsurgical changes, this is likely post surgical in nature. However, recommend clinical correlation. 2. Subcutaneous inflammatory change of the anterior pelvic soft tissues. No drainable fluid collection. 3. Dilation of the small bowel measuring up to 4.4 cm. Findings are concerning for ileus/early small bowel obstruction. 4. Postsurgical changes from ileostomy. Limited evaluation of the pelvic fluid filled structures as oral contrast has not transited this point. 5. Air within the urinary bladder. Recommend correlation with clinical history for recent catheterization. UTI is also in the differential. Chest x-ray - 11/12/19 - Procedure: XRAY Chest 1v Indication: Shortness of breath Technique: One view of the chest Comparison: 10/30/2019 Findings: Lungs and pleural spaces are clear. Heart size is normal. There is a left arm PICC in place. Impression: No acute process CT abdomen and pelvis - - IMPRESSION: 1. Status post colectomy with ileostomy. Stable positioning of the percutaneous ileostomy catheter. 2. 5.1 x 3.5 x 3.1 cm air-fluid collection in the anterior pelvis, anterior to the loop with ileostomy catheter. This is concerning for abscess. Laboratory Tests Test 11/19/19 05:10 11/19/19 09:00 White Blood Count 11.7 K/UL (4.8-10.8) H Red Blood Count 3.26 M/UL (4.20-5.40) L Hemoglobin 9.2 G/DL (12.0-16.0) L Hematocrit 27.8 % (37.0-47.0) L Mean Corpuscular Volume 85 FL (80-99) Mean Corpuscular Hemoglobin 28.3 PG (27.0-31.0) Mean Corpuscular Hemoglobin Concent 33.1 G/DL (32.0-36.0) Red Cell Distribution Width 12.1 % (11.6-14.8) Platelet Count 569 K/UL (150-450) H Mean Platelet Volume 4.6 FL (6.5-10.1) L Neutrophils (%) (Auto) 60.6 % (45.0-75.0) Lymphocytes (%) (Auto) 17.1 % (20.0-45.0) L Monocytes (%) (Auto) 9.7 % (1.0-10.0) Eosinophils (%) (Auto) 11.1 % (0.0-3.0) H Basophils (%) (Auto) 1.5 % (0.0-2.0) Sodium Level 143 MMOL/L (136-145) Potassium Level 3.9 MMOL/L (3.5-5.1) Chloride Level 107 MMOL/L (98-107) Carbon Dioxide Level 26 MMOL/L (21-32) Anion Gap 10 mmol/L (5-15) Blood Urea Nitrogen 9 mg/dL (7-18) Creatinine 1.2 MG/DL (0.55-1.30) Estimat Glomerular Filtration Rate 51.7 mL/min (>60) Glucose Level 81 MG/DL (74-106) Calcium Level 9.0 MG/DL (8.5-10.1) Total Bilirubin 0.3 MG/DL (0.2-1.0) Aspartate Amino Transf (AST/SGOT) 13 U/L (15-37) L Alanine Aminotransferase (ALT/SGPT) 18 U/L (12-78) Alkaline Phosphatase 77 U/L (46-116) Total Protein 6.8 G/DL (6.4-8.2) Albumin 2.6 G/DL (3.4-5.0) L Globulin 4.2 g/dL Albumin/Globulin Ratio 0.6 (1.0-2.7) L Prothrombin Time 11.1 SEC (9.30-11.50) Prothromb Time International Ratio 1.0 (0.9-1.1) Activated Partial Thromboplast Time 32 SEC (23-33) Current Medications Medications (Trade) Dose Ordered Sig/Pat Route PRN Reason Start Time Stop Time Status Last Admin Dose Admin Acetaminophen (Tylenol) 650 mg Q4H PRN ORAL Mild Pain or temp over 100.2 11/02/19 15:00 12/02/19 14:59 11/12/19 13:13 Albuterol Sulfate (Proventil) 2.5 mg Q4H PRN HHN Shortness of Breath 11/18/19 10:00 11/23/19 09:59 Alprazolam (Xanax) 0.25 mg TIDPRN PRN ORAL ANXIETY 11/19/19 08:30 11/26/19 08:29 Barium Sulfate (Readi-Cat 2) 450 ml NOW PRN ORAL Radiology Procedure 11/18/19 09:45 11/20/19 09:44 Cetirizine HCl (ZyrTEC) 10 mg Q24H ORAL 11/04/19 09:15 01/30/20 10:59 11/19/19 07:59 Folic Acid (Folate) 1 mg DAILY ORAL 11/05/19 09:00 12/05/19 08:59 11/19/19 07:59 Hydrocortisone (Hydrocortisone) 1 applic TID TOPIC 11/18/19 16:30 02/16/20 16:29 11/18/19 17:20 Hydromorphone HCl (Dilaudid) 1 mg Q4H PRN SUBQ Severe Breakthru Pain (>7) 11/15/19 10:00 11/22/19 09:59 Iohexol (OMNIPAQUE-300 100ml) 100 ml NOW PRN INJ Radiology Procedure 11/18/19 09:45 11/20/19 09:44 Ketorolac Tromethamine (Toradol 30mg) 30 mg Q6H PRN IV severe pain 7-10 11/18/19 10:00 11/23/19 09:59 11/19/19 07:59 Lamotrigine (LaMICtal) 200 mg QHS ORAL 10/30/19 21:00 11/29/19 20:59 11/18/19 20:32 Lidocaine HCl (Xylocaine 1% 30ml) 30 ml ONCE PRN INJ CATH PLACEMENT 11/19/19 09:00 11/19/19 23:59 Lorazepam (Ativan) 1 mg Q4H PRN SL Muscle Spasm 11/15/19 10:00 11/22/19 09:59 Meropenem 1 gm/ Sodium Chloride 100 ml @ 200 mls/hr Q8HR IVPB 11/18/19 22:00 11/23/19 21:59 11/19/19 05:24 Micafungin Sodium 150 mg/Sodium Chloride 110 ml @ 110 mls/hr Q24H IVPB 11/18/19 20:00 11/25/19 19:59 11/18/19 20:00 Nystatin (Nystatin Cr) 1 applic TID@0900,1500,2100 TOPIC 11/16/19 10:00 02/14/20 09:59 11/19/19 07:59 Nystatin (Nystatin) 5 ml QID ORAL 11/15/19 13:00 11/22/19 12:59 11/19/19 12:22 Ondansetron HCl (Zofran) 4 mg Q4H PRN IVP Nausea & Vomiting 11/15/19 11:00 12/15/19 10:59 11/19/19 05:23 Oxycodone/ Acetaminophen (Percocet 5-325) 1 tab Q4H PRN ORAL Moderate Pain (Pain Scale 4-6) 11/16/19 09:04 11/23/19 09:03 Patient Own Medication (Patient's Own Med) 1 ea QIDPRN PRN ORAL burning with urination 10/30/19 18:15 11/29/19 18:14 Patient Own Medication (Patient's Own Med) 1 ea TID ORAL 11/09/19 13:00 12/09/19 12:59 11/19/19 12:22 Sodium Bicarbonate (Sodium Bicarbonate 4%) 1 ml NOW PRN IV Radiology Procedure 11/19/19 09:00 11/19/19 23:59 Starla Liriano MD Nov 19, 2019 12:53
[2019-11-19 16:00] VITALS: BP 109/66
--- NOTE | 2019-11-19 17:54 | Diagnostic Imaging Report ---
Indication: Pelvic pain, evaluation of abnormalities on previous abdomen pelvis CT Technique: Noncontrast spiral acquisitions obtained through the pelvis in anticipation of drainage procedure. Total dose length product 118 mGycm. CTDIvol(s) 4 mGy. Dose reduction achieved using automated exposure control Comparison: CT scan 11/18/2019 Findings: Localizing images obtained in anticipation of drainage procedure demonstrate contrast within the space reported on recent CT scan. The space is also considerably smaller and no gas bubbles are demonstrated. Impression: Previously previously is suspected gas and fluid collection fills with contrast, indicating that this is a part of the ileostomy pouch that had not yet opacified with contrast at the time of previous scanning, rather than a pathologic collection. No procedure performed. Findings discussed by phone with Dr. Aceves previously The CT scanner at [facility] is accredited by the [employer] and the scans are performed using protocols designed to limit radiation exposure to as low as reasonably achievable to attain images of sufficient resolution adequate for diagnostic evaluation.
[2019-11-19] MEDS ORDERED: Tubing IV Secondary IV ONE (18:46)
[2019-11-19] MEDS ORDERED: NS 275ml ONE (18:46)
[2019-11-19 20:00] VITALS: BP 107/71
[2019-11-19] MEDS: NS IVPB SCH (20:36)
[2019-11-19] MEDS: MICAFUNGIN IVPB SCH (20:36)
[2019-11-20] VITALS: BP 114/65
[2019-11-20 04:00] VITALS: BP 136/66
[2019-11-20 05:46] LABS: BASOPHILS % (AUTO) 1.2 % (0.0-2.0); EOSINOPHILS % (AUTO) 7.9 % (0.0-3.0); HEMATOCRIT 29.2 % (37.0-47.0); HEMOGLOBIN 9.6 G/DL (12.0-16.0); LYMPHOCYTES % (AUTO) 17.5 % (20.0-45.0); MEAN CORPUSCULAR VOLUME 85 FL (80-99); MONOCYTES % (AUTO) 8.5 % (1.0-10.0); NEUTROPHILS % (AUTO) 64.8 % (45.0-75.0); PLATELET COUNT 637 K/UL (150-450); RED BLOOD COUNT 3.42 M/UL (4.20-5.40); RED CELL DISTRIBUTION WIDTH 11.9 % (11.6-14.8); WHITE BLOOD COUNT 12.6 K/UL (4.8-10.8)
[2019-11-20 05:53] LABS: ALANINE AMINOTRANSFERASE 20 U/L (12-78); ALBUMIN 2.7 G/DL (3.4-5.0); ALBUMIN/GLOBULIN RATIO 0.7 (1.0-2.7); ALKALINE PHOSPHATASE 82 U/L (46-116); ASPARTATE AMINO TRANSFERASE 13 U/L (15-37); BILIRUBIN,TOTAL 0.3 MG/DL (0.2-1.0); BLOOD UREA NITROGEN 7 mg/dL (7-18); CALCIUM 9.4 MG/DL (8.5-10.1); CARBON DIOXIDE 25 MMOL/L (21-32); CHLORIDE 105 MMOL/L (98-107); CREATININE 1.2 MG/DL (0.55-1.30); POTASSIUM 4.4 MMOL/L (3.5-5.1); SODIUM 140 MMOL/L (136-145)
[2019-11-20 08:00] VITALS: BP 108/66
[2019-11-20] MEDS: ELMIRON 100 MG ORAL SCH ×3 (08:35→17:31)
[2019-11-20] MEDS: Nystatin Susp 500,000 units/5ml ORAL SCH ×4 (08:35→20:23)
[2019-11-20] MEDS: Hydrocortisone 1% Cr TOPIC SCH (08:35)
--- NOTE | 2019-11-20 08:39 | General Progress Note ---
Progress Note Progress Note AVSS Feels well nd eating okay. Repeat CT scan showed no abscess - "collection" was part of continent ileostomy pouch. Abdomen soft. BCIR ileo catheter removed - reinserts readily WBC up 12,600 Platelets up 637,000 BUN 7 Cr 1.2 albumin 2.7 Imp: Leukocytosis ?? etiology Plan: Start RN supervised BCIR self-intubations q3h (except overnight prn only) ? d/c antibiotics and observe re temp/WBC? - will discuss with Jose Noriega MD Nov 20, 2019 08:38
[2019-11-20] MEDS ORDERED: Hydrocortisone 1% Cr TOPIC PRN (08:45)
[2019-11-20 12:00] VITALS: BP 98/67
[2019-11-20] MEDS: Ascorbic Acid 500mg tab ORAL PRN (14:19)
[2019-11-20 16:00] VITALS: BP 106/97
--- NOTE | 2019-11-20 17:23 | Infectious Diseases Prog Note ---
Assessment/Plan Assessment/Plan ASSESSMENT AND PLAN: 1. leukocytosis, fevers, ? sepsis, refractory thrush, ? picc line infection, ua - le 1+, 0-2 wbc, urine culture < 10,000 gram negative OMAR - ? zosyn, ? vancomycin CT abdomen and pelvis - 11/18/19 - pelvic fluid collection, concerning for abscess - d/w Dr. Aceves and finding likely related to pouch and not a abscess picc line removed, line cath tip - no growth, blood cultures negative - discontinue meropenem and observe off abx - micafungin for refractory thrush - can give oral diflucan for thrush when discharging patient - 200 mg daily until f/u with ID physician she knows from area where she lives - nystatin for possible peristomal fungal rash/erythema - monitor labs - leukocytosis better overall, fevers resolved - continue management per Dr. Aceves - d/w Dr. Aceves 2. Canseco ileostomy, status post revision. 3. The patient has history of ulcerative colitis. 4. Multiple abdominal surgeries including cholecystectomy. 5. History of colectomy. 6. History of asthma. 7. Anxiety and depression. 8. Fibromyalgia. 9. Ulcerative colitis. 10. History of . 11. History of Canseco continent ileostomy. 12. History of hysterectomy. 13. Allergies to Cipro, codeine, metoclopramide, sulfa, and sutures. 14. Family history is noncontributory. 15. Social history is negative. 16. MAR is noted. 17. Case was discussed with RN. 18. Case was discussed with Dr. Aceves. 19. Continue treatment per primary consultants. 20. Case was discussed with the patient. Subjective Constitutional: Denies: fever HEENT: Denies: congestion Respiratory: Denies: shortness of breath Cardiovascular: Denies: chest pain Gastrointestinal/Abdominal: Denies: nausea, vomiting Genitourinary: Reports: other - no colindres ; Denies: dysuria, hematuria, f requency Neurologic: Denies: headache Psychiatric: Denies: depression Skin: Denies: rash Hematologic: Denies: bleeding Allergies: Coded Allergies: CODEINE (Verified Allergy, Unknown, 01/09/19) METOCLOPRAMIDE (Verified Allergy, Unknown, 01/09/19) SULFA (SULFONAMIDE ANTIBIOTICS) (Verified Allergy, Unknown, 01/09/19) SUTURE (Verified Allergy, Unknown, 01/09/19) VICRYL CIPROFLOXACIN (Verified Adverse Reaction, Unknown, 01/09/19) ANGRY, CRYING, VERY EMOTIONAL. Objective Last 24 Hour Vital Signs Date Time Temp Pulse Resp B/P (MAP) Pulse Ox O2 Delivery O2 Flow Rate FiO2 11/20/19 12:00 98.3 80 20 98/67 (77) 99 11/20/19 09:00 Room Air 11/20/19 08:00 98.4 90 18 108/66 (80) 99 11/20/19 07:29 81 16 98 Room Air 21 11/20/19 04:00 98.2 76 18 136/66 (89) 98 11/20/19 00:00 99.1 83 18 114/65 (81) 100 11/19/19 21:00 Room Air 11/19/19 20:00 97.1 76 18 107/71 (83) 98 Height (Feet): 5 Height (Inches): 5.00 Weight (Pounds): 143 General Appearance: no acute distress HEENT: normocephalic, atraumatic, anicteric, mucous membranes moist Respiratory/Chest: lungs clear, normal breath sounds, no respiratory distress, no accessory muscle use Cardiovascular: normal rate, regular rhythm, no gallop/murmur, no JVD Abdomen: normal bowel sounds, soft, non tender, no organomegaly, non distended Genitourinary: other - no colindres Extremities: no cyanosis Skin: no rash Neurologic/Psychiatric: alterations tailor II-XII grossly normal, no motor/sensory deficits, alert, oriented x 3, responsive Lymphatic: no neck adenopathy Musculoskeletal: no effusion Chest x-ray - 10/30/19 - FINDINGS: Lungs: The lungs are well aerated. Pleural space: Unremarkable. No pneumothorax. Heart: Cardiomediastinal silhouette unremarkable Mediastinum: See above. Bones/joints: Gentle levoscoliosis of the lower thoracic spine. Osteopenia. The ribs are grossly unremarkable. IMPRESSION: No active disease. CT abdomen and pelvis - 11/10 - IMPRESSION: 1. Pneumoperitoneum. Given postsurgical changes, this is likely post surgical in nature. However, recommend clinical correlation. 2. Subcutaneous inflammatory change of the anterior pelvic soft tissues. No drainable fluid collection. 3. Dilation of the small bowel measuring up to 4.4 cm. Findings are concerning for ileus/early small bowel obstruction. 4. Postsurgical changes from ileostomy. Limited evaluation of the pelvic fluid filled structures as oral contrast has not transited this point. 5. Air within the urinary bladder. Recommend correlation with clinical history for recent catheterization. UTI is also in the differential. Chest x-ray - 11/12/19 - Procedure: XRAY Chest 1v Indication: Shortness of breath Technique: One view of the chest Comparison: 10/30/2019 Findings: Lungs and pleural spaces are clear. Heart size is normal. There is a left arm PICC in place. Impression: No acute process CT abdomen and pelvis - - IMPRESSION: 1. Status post colectomy with ileostomy. Stable positioning of the percutaneous ileostomy catheter. 2. 5.1 x 3.5 x 3.1 cm air-fluid collection in the anterior pelvis, anterior to the loop with ileostomy catheter. This is concerning for abscess. Microbiology Date/Time Source Procedure Growth Status 11/15/19 15:10 Other(Specify in comment) Catheter Tip Culture - Preliminary NO GROWTH AFTER 48 HOURS Resulted 11/10/19 21:50 Blood Blood Culture - Final NO GROWTH AFTER 5 DAYS Complete 11/10/19 10:10 Urine,Clean Catch Urine Culture - Final Escherichia Coli Complete 10/30/19 14:40 Nasopharynx SARS-CoV-2 RdRp Gene Assay - Final Complete Laboratory Tests Test 11/20/19 05:00 White Blood Count 12.6 K/UL (4.8-10.8) H Red Blood Count 3.42 M/UL (4.20-5.40) L Hemoglobin 9.6 G/DL (12.0-16.0) L Hematocrit 29.2 % (37.0-47.0) L Mean Corpuscular Volume 85 FL (80-99) Mean Corpuscular Hemoglobin 28.1 PG (27.0-31.0) Mean Corpuscular Hemoglobin Concent 33.0 G/DL (32.0-36.0) Red Cell Distribution Width 11.9 % (11.6-14.8) Platelet Count 637 K/UL (150-450) H Mean Platelet Volume 4.6 FL (6.5-10.1) L Neutrophils (%) (Auto) 64.8 % (45.0-75.0) Lymphocytes (%) (Auto) 17.5 % (20.0-45.0) L Monocytes (%) (Auto) 8.5 % (1.0-10.0) Eosinophils (%) (Auto) 7.9 % (0.0-3.0) H Basophils (%) (Auto) 1.2 % (0.0-2.0) Sodium Level 140 MMOL/L (136-145) Potassium Level 4.4 MMOL/L (3.5-5.1) Chloride Level 105 MMOL/L (98-107) Carbon Dioxide Level 25 MMOL/L (21-32) Blood Urea Nitrogen 7 mg/dL (7-18) Creatinine 1.2 MG/DL (0.55-1.30) Estimat Glomerular Filtration Rate 51.7 mL/min (>60) Glucose Level 90 MG/DL (74-106) Calcium Level 9.4 MG/DL (8.5-10.1) Total Bilirubin 0.3 MG/DL (0.2-1.0) Aspartate Amino Transf (AST/SGOT) 13 U/L (15-37) L Alanine Aminotransferase (ALT/SGPT) 20 U/L (12-78) Alkaline Phosphatase 82 U/L (46-116) Total Protein 6.4 G/DL (6.4-8.2) Albumin 2.7 G/DL (3.4-5.0) L Globulin 3.7 g/dL Albumin/Globulin Ratio 0.7 (1.0-2.7) L Current Medications Medications (Trade) Dose Ordered Sig/Pat Route PRN Reason Start Time Stop Time Status Last Admin Dose Admin Acetaminophen (Tylenol) 650 mg Q4H PRN ORAL Mild Pain or temp over 100.2 11/02/19 15:00 12/02/19 14:59 11/12/19 13:13 Albuterol Sulfate (Proventil) 2.5 mg Q4H PRN HHN Shortness of Breath 11/18/19 10:00 11/23/19 09:59 Alprazolam (Xanax) 0.25 mg TIDPRN PRN ORAL ANXIETY 11/19/19 08:30 11/26/19 08:29 Ascorbic Acid (Vitamin C) 500 mg NEEDED PRN ORAL Constipation 11/20/19 13:00 12/20/19 12:59 11/20/19 14:19 Cetirizine HCl (ZyrTEC) 10 mg Q24H ORAL 11/04/19 09:15 01/30/20 10:59 11/20/19 08:40 Folic Acid (Folate) 1 mg DAILY ORAL 11/05/19 09:00 12/05/19 08:59 11/20/19 08:35 Hydrocortisone (Hydrocortisone) 1 applic DAILYPRN PRN TOPIC Itching/Pruritis, rash 11/20/19 08:45 02/18/20 08:44 Hydromorphone HCl (Dilaudid) 1 mg Q4H PRN SUBQ Severe Breakthru Pain (>7) 11/15/19 10:00 11/22/19 09:59 Ketorolac Tromethamine (Toradol 30mg) 30 mg Q6H PRN IV severe pain 7-10 11/18/19 10:00 11/23/19 09:59 11/19/19 07:59 Lamotrigine (LaMICtal) 200 mg QHS ORAL 10/30/19 21:00 11/29/19 20:59 11/19/19 20:36 Lorazepam (Ativan) 1 mg Q4H PRN SL Muscle Spasm 11/15/19 10:00 11/22/19 09:59 Micafungin Sodium 150 mg/Sodium Chloride 110 ml @ 110 mls/hr Q24H IVPB 11/18/19 20:00 11/25/19 19:59 11/19/19 20:36 Nystatin (Nystatin Cr) 1 applic TID@1100,1400,1700 TOPIC 11/20/19 11:00 02/18/20 10:59 11/20/19 13:53 Nystatin (Nystatin) 5 ml QID ORAL 11/15/19 13:00 11/22/19 12:59 11/20/19 13:52 Ondansetron HCl (Zofran) 4 mg Q4H PRN IVP Nausea & Vomiting 11/15/19 11:00 12/15/19 10:59 11/20/19 05:40 Oxycodone/ Acetaminophen (Percocet 5-325) 1 tab Q4H PRN ORAL Moderate Pain (Pain Scale 4-6) 11/16/19 09:04 11/23/19 09:03 Patient Own Medication (Patient's Own Med) 1 ea QIDPRN PRN ORAL burning with urination 10/30/19 18:15 11/29/19 18:14 Patient Own Medication (Patient's Own Med) 1 ea TID ORAL 11/09/19 13:00 12/09/19 12:59 11/20/19 13:52 Starla Liriano MD Nov 20, 2019 17:23
[2019-11-20 20:00] VITALS: BP 119/67
[2019-11-20] MEDS: NS IVPB SCH (20:25)
[2019-11-20] MEDS: MICAFUNGIN IVPB SCH (20:25)
[2019-11-21] VITALS (7 sets, daily range): BP systolic 95–121; BP diastolic 59–75
[2019-11-21 05:26] LABS: BASOPHILS % (AUTO) 1.8 % (0.0-2.0); EOSINOPHILS % (AUTO) 10.1 % (0.0-3.0); HEMOGLOBIN 9.7 G/DL (12.0-16.0); LYMPHOCYTES % (AUTO) 25.8 % (20.0-45.0); MEAN CORPUSCULAR VOLUME 85 FL (80-99); MONOCYTES % (AUTO) 9.7 % (1.0-10.0); NEUTROPHILS % (AUTO) 52.6 % (45.0-75.0); PLATELET COUNT 599 K/UL (150-450); RED BLOOD COUNT 3.41 M/UL (4.20-5.40); RED CELL DISTRIBUTION WIDTH 11.7 % (11.6-14.8); WHITE BLOOD COUNT 10.2 K/UL (4.8-10.8)
[2019-11-21 05:41] LABS: CALCIUM 9.2 MG/DL (8.5-10.1); CREATININE 1.1 MG/DL (0.55-1.30); POTASSIUM 4.2 MMOL/L (3.5-5.1)
[2019-11-21] MEDS ORDERED: Albuterol ud Inhalation HHN PRN (08:31)
[2019-11-21] MEDS ORDERED: oxyCODONE HCL/Acetaminophen 5/325mg ORAL PRN (08:31)
--- NOTE | 2019-11-21 08:47 | General Progress Note ---
Progress Note Progress Note AVSS Self-intubating her Canseco Pouch without difficulty. Still mild thrush Abdomen soft, stoma healing improved Urine 3000 BCIR ileo 380 Eating 75% WBC 10.200 Hgb 7.0 Platelets down 539,000 BUN 8 Cr 1.1 Imp: Improved with leukocytosis resolved Plan; Continue current regimen Anticipate discharge in 24 hours Micafungin IV - per Jose Noriega MD Nov 21, 2019 08:47
[2019-11-21] MEDS: Ascorbic Acid 500mg tab ORAL PRN (08:51)
[2019-11-21] MEDS: Nystatin Susp 500,000 units/5ml ORAL SCH ×4 (08:51→20:28)
[2019-11-21] MEDS: ELMIRON 100 MG ORAL SCH ×3 (08:51→18:08)
[2019-11-21] MEDS: NS IVPB SCH (20:29)
[2019-11-21] MEDS: MICAFUNGIN IVPB SCH (20:29)
[2019-11-22 08:00] VITALS: BP 114/68
[2019-11-22] MEDS: Nystatin Susp 500,000 units/5ml ORAL SCH ×4 (09:18→20:40)
[2019-11-22] MEDS: ELMIRON 100 MG ORAL SCH ×3 (09:18→18:40)
[2019-11-22 12:00] VITALS: BP 112/79
[2019-11-22] MEDS ORDERED: Ketorolac 30mg Inj IV PRN (12:47)
--- NOTE | 2019-11-22 13:00 | General Progress Note ---
Progress Note Progress Note AVSS doing well with self-intubations of Canseco pouch. Abdomen soft, stoma healing Urine 3000 BCIR ileo 620 Imp: doing well Plan: discharge in AM Instructions/limitations/supplies discussed/provided F/U 11/25 Rx percocet 5/325 #20 Zofran ODT 4mg #30 Jose Aceves MD Nov 22, 2019 13:00
[2019-11-22 16:00] VITALS: BP 99/63
--- NOTE | 2019-11-22 18:24 | Infectious Diseases Prog Note ---
Assessment/Plan Assessment/Plan ASSESSMENT AND PLAN: 1. leukocytosis, fevers, ? sepsis, refractory thrush, ? picc line infection, ua - le 1+, 0-2 wbc, urine culture < 10,000 gram negative OMAR - ? zosyn, ? vancomycin CT abdomen and pelvis - 11/18/19 - pelvic fluid collection, concerning for abscess - d/w Dr. Aceves and finding likely related to pouch and not a abscess picc line removed, line cath tip - no growth, blood cultures negative - s/p meropenem, observe off abx - micafungin for refractory thrush - can give oral diflucan for thrush when discharging patient - 200 mg daily until f/u with ID physician she knows from area where she lives - script written for diflucan - monitor labs - leukocytosis resolved, fevers resolved - continue management per Dr. Aceves 2. Canseco ileostomy, status post revision. 3. The patient has history of ulcerative colitis. 4. Multiple abdominal surgeries including cholecystectomy. 5. History of colectomy. 6. History of asthma. 7. Anxiety and depression. 8. Fibromyalgia. 9. Ulcerative colitis. 10. History of . 11. History of Canseco continent ileostomy. 12. History of hysterectomy. 13. Allergies to Cipro, codeine, metoclopramide, sulfa, and sutures. 14. Family history is noncontributory. 15. Social history is negative. 16. MAR is noted. 17. Case was discussed with RN. 18. Case was discussed with Dr. Aceves. 19. Continue treatment per primary consultants. 20. Case was discussed with the patient. Subjective Constitutional: Denies: fever HEENT: Denies: congestion Respiratory: Denies: shortness of breath Cardiovascular: Denies: chest pain Gastrointestinal/Abdominal: Denies: nausea, vomiting, diarrhea Genitourinary: Reports: other - no colindres Neurologic: Denies: headache Psychiatric: Denies: depression Skin: Denies: rash Hematologic: Denies: bleeding Musculoskeletal: Denies: pain Allergies: Coded Allergies: CODEINE (Verified Allergy, Unknown, 01/09/19) METOCLOPRAMIDE (Verified Allergy, Unknown, 01/09/19) SULFA (SULFONAMIDE ANTIBIOTICS) (Verified Allergy, Unknown, 01/09/19) SUTURE (Verified Allergy, Unknown, 01/09/19) VICRYL CIPROFLOXACIN (Verified Adverse Reaction, Unknown, 01/09/19) ANGRY, CRYING, VERY EMOTIONAL. Objective Last 24 Hour Vital Signs Date Time Temp Pulse Resp B/P (MAP) Pulse Ox O2 Delivery O2 Flow Rate FiO2 11/22/19 16:00 98.5 78 16 99/63 (75) 98 11/22/19 12:00 98.7 85 16 112/79 (90) 98 11/22/19 09:00 Room Air 11/22/19 08:00 97.7 85 16 114/68 (83) 98 11/21/19 23:15 98.1 75 18 101/64 (76) 97 11/21/19 21:00 Room Air 11/21/19 20:13 79 16 96 Room Air 21 11/21/19 20:00 98.1 78 18 98/67 (77) 97 11/21/19 18:40 98.4 Height (Feet): 5 Height (Inches): 5.00 Weight (Pounds): 143 General Appearance: no acute distress HEENT: normocephalic, atraumatic, anicteric, mucous membranes moist, thrush - improved Respiratory/Chest: lungs clear, normal breath sounds, no respiratory distress, no accessory muscle use Cardiovascular: normal rate, regular rhythm, no gallop/murmur, no JVD Abdomen: normal bowel sounds, soft, non tender, no organomegaly, non distended Genitourinary: other - no colindres Extremities: no cyanosis Skin: no rash Neurologic/Psychiatric: wrapper caser II-XII grossly normal, alert, oriented x 3, responsive Lymphatic: no neck adenopathy Musculoskeletal: no effusion Chest x-ray - 10/30/19 - FINDINGS: Lungs: The lungs are well aerated. Pleural space: Unremarkable. No pneumothorax. Heart: Cardiomediastinal silhouette unremarkable Mediastinum: See above. Bones/joints: Gentle levoscoliosis of the lower thoracic spine. Osteopenia. The ribs are grossly unremarkable. IMPRESSION: No active disease. CT abdomen and pelvis - 11/10 - IMPRESSION: 1. Pneumoperitoneum. Given postsurgical changes, this is likely post surgical in nature. However, recommend clinical correlation. 2. Subcutaneous inflammatory change of the anterior pelvic soft tissues. No drainable fluid collection. 3. Dilation of the small bowel measuring up to 4.4 cm. Findings are concerning for ileus/early small bowel obstruction. 4. Postsurgical changes from ileostomy. Limited evaluation of the pelvic fluid filled structures as oral contrast has not transited this point. 5. Air within the urinary bladder. Recommend correlation with clinical history for recent catheterization. UTI is also in the differential. Chest x-ray - 11/12/19 - Procedure: XRAY Chest 1v Indication: Shortness of breath Technique: One view of the chest Comparison: 10/30/2019 Findings: Lungs and pleural spaces are clear. Heart size is normal. There is a left arm PICC in place. Impression: No acute process CT abdomen and pelvis - - IMPRESSION: 1. Status post colectomy with ileostomy. Stable positioning of the percutaneous ileostomy catheter. 2. 5.1 x 3.5 x 3.1 cm air-fluid collection in the anterior pelvis, anterior to the loop with ileostomy catheter. This is concerning for abscess. Microbiology Date/Time Source Procedure Growth Status 11/15/19 15:10 Other(Specify in comment) Catheter Tip Culture - Final NO GROWTH AFTER 4 DAYS Complete 11/10/19 21:50 Blood Blood Culture - Final NO GROWTH AFTER 5 DAYS Complete 11/10/19 10:10 Urine,Clean Catch Urine Culture - Final Escherichia Coli Complete 10/30/19 14:40 Nasopharynx SARS-CoV-2 RdRp Gene Assay - Final Complete Labs Test 11/20/19 05:00 11/21/19 04:45 White Blood Count 12.6 K/UL (4.8-10.8) 10.2 K/UL (4.8-10.8) Red Blood Count 3.42 M/UL (4.20-5.40) 3.41 M/UL (4.20-5.40) Hemoglobin 9.6 G/DL (12.0-16.0) 9.7 G/DL (12.0-16.0) Hematocrit 29.2 % (37.0-47.0) 29.0 % (37.0-47.0) Mean Corpuscular Volume 85 FL (80-99) 85 FL (80-99) Mean Corpuscular Hemoglobin 28.1 PG (27.0-31.0) 28.4 PG (27.0-31.0) Mean Corpuscular Hemoglobin Concent 33.0 G/DL (32.0-36.0) 33.4 G/DL (32.0-36.0) Red Cell Distribution Width 11.9 % (11.6-14.8) 11.7 % (11.6-14.8) Platelet Count 637 K/UL (150-450) 599 K/UL (150-450) Mean Platelet Volume 4.6 FL (6.5-10.1) 4.6 FL (6.5-10.1) Neutrophils (%) (Auto) 64.8 % (45.0-75.0) 52.6 % (45.0-75.0) Lymphocytes (%) (Auto) 17.5 % (20.0-45.0) 25.8 % (20.0-45.0) Monocytes (%) (Auto) 8.5 % (1.0-10.0) 9.7 % (1.0-10.0) Eosinophils (%) (Auto) 7.9 % (0.0-3.0) 10.1 % (0.0-3.0) Basophils (%) (Auto) 1.2 % (0.0-2.0) 1.8 % (0.0-2.0) Sodium Level 140 MMOL/L (136-145) 144 MMOL/L (136-145) Potassium Level 4.4 MMOL/L (3.5-5.1) 4.2 MMOL/L (3.5-5.1) Chloride Level 105 MMOL/L (98-107) 109 MMOL/L (98-107) Carbon Dioxide Level 25 MMOL/L (21-32) 28 MMOL/L (21-32) Blood Urea Nitrogen 7 mg/dL (7-18) 8 mg/dL (7-18) Creatinine 1.2 MG/DL (0.55-1.30) 1.1 MG/DL (0.55-1.30) Estimat Glomerular Filtration Rate 51.7 mL/min (>60) 57.2 mL/min (>60) Glucose Level 90 MG/DL (74-106) 87 MG/DL (74-106) Calcium Level 9.4 MG/DL (8.5-10.1) 9.2 MG/DL (8.5-10.1) Total Bilirubin 0.3 MG/DL (0.2-1.0) Aspartate Amino Transf (AST/SGOT) 13 U/L (15-37) Alanine Aminotransferase (ALT/SGPT) 20 U/L (12-78) Alkaline Phosphatase 82 U/L (46-116) Total Protein 6.4 G/DL (6.4-8.2) Albumin 2.7 G/DL (3.4-5.0) Globulin 3.7 g/dL Albumin/Globulin Ratio 0.7 (1.0-2.7) Anion Gap 7 mmol/L (5-15) Current Medications Medications (Trade) Dose Ordered Sig/Pat Route PRN Reason Start Time Stop Time Status Last Admin Dose Admin Acetaminophen (Tylenol) 650 mg Q4H PRN ORAL Mild Pain or temp over 100.2 11/02/19 15:00 12/02/19 14:59 11/22/19 14:31 Albuterol Sulfate (Proventil) 2.5 mg Q4H PRN HHN Shortness of Breath 11/21/19 08:31 11/26/19 08:30 Alprazolam (Xanax) 0.25 mg TIDPRN PRN ORAL ANXIETY 11/19/19 08:30 11/26/19 08:29 Ascorbic Acid (Vitamin C) 500 mg NEEDED PRN ORAL Constipation 11/20/19 13:00 12/20/19 12:59 11/21/19 08:51 Cetirizine HCl (ZyrTEC) 10 mg Q24H ORAL 11/04/19 09:15 01/30/20 10:59 11/22/19 09:18 Folic Acid (Folate) 1 mg DAILY ORAL 11/05/19 09:00 12/05/19 08:59 11/22/19 09:18 Hydrocortisone (Hydrocortisone) 1 applic DAILYPRN PRN TOPIC Itching/Pruritis, rash 11/20/19 08:45 02/18/20 08:44 Ketorolac Tromethamine (Toradol 30mg) 30 mg Q6H PRN IV severe pain 7-10 11/22/19 12:47 11/27/19 12:46 Lamotrigine (LaMICtal) 200 mg QHS ORAL 10/30/19 21:00 11/29/19 20:59 11/21/19 20:28 Micafungin Sodium 150 mg/Sodium Chloride 110 ml @ 110 mls/hr Q24H IVPB 11/18/19 20:00 11/25/19 19:59 11/21/19 20:29 Nystatin (Nystatin Cr) 1 applic TID@1100,1400,1700 TOPIC 11/20/19 11:00 02/18/20 10:59 11/22/19 17:10 Nystatin (Nystatin) 5 ml QID ORAL 11/21/19 09:00 11/28/19 08:59 11/22/19 13:07 Ondansetron HCl (Zofran) 4 mg Q4H PRN IVP Nausea & Vomiting 11/15/19 11:00 12/15/19 10:59 11/20/19 05:40 Oxycodone/ Acetaminophen (Percocet 5-325) 1 tab Q4H PRN ORAL Moderate Pain (Pain Scale 4-6) 11/21/19 08:31 11/28/19 08:30 Patient Own Medication (Patient's Own Med) 1 ea QIDPRN PRN ORAL burning with urination 10/30/19 18:15 11/29/19 18:14 Patient Own Medication (Patient's Own Med) 1 ea TID ORAL 11/09/19 13:00 12/09/19 12:59 11/22/19 13:07 Starla Liriano MD Nov 22, 2019 18:24
[2019-11-22 20:00] VITALS: BP 102/68
[2019-11-22] MEDS: MICAFUNGIN IVPB SCH (20:40)
[2019-11-22] MEDS: NS IVPB SCH (20:40)
[2019-11-23 04:00] VITALS: BP 105/65
[2019-11-23 08:00] VITALS: BP 117/73
[2019-11-23] MEDS: ELMIRON 100 MG ORAL SCH (08:56)
[2019-11-23] MEDS: Nystatin Susp 500,000 units/5ml ORAL SCH (08:56)
[2019-11-23] MEDS ORDERED: NS 275ml ONE (09:59)
[2019-11-23] MEDS ORDERED: Tubing IV Secondary IV ONE (09:59)
[2019-11-23] MEDS ORDERED: NS Irrig 1000ml ONE (09:59)
--- NOTE | 2019-11-25 18:11 | Discharge Summary ---
Discharge Summary Discharge Summary _ DATE OF ADMISSION: 10/30/2019 DATE OF DISCHARGE: 11/23/2019 DISCHARGED BY: Dr. Jose Aceves CONSULTANTS: Dr. Starla Guallpa HISTORY OF PRESENT ILLNESS: The patient is a 34-year-old female in overall stable health, who presents with a malfunctioning Canseco continent ileostomy with recent acute inability to intubate her pouch to evacuate stool and gas. The patient underwent surgery in December, because of complications of prior surgery done elsewhere. All of which will be listed at the end of this dictation. She could not intubate and had an endoscopy in November 2018 and had incontinence around the catheter, underwent surgery on January 10, 2019 with revision of a partial valve involving her Canseco continent ileostomy pouch. The patient did well until recent two months when she started having difficulty with intubation, but no incontinence. She had to go to local emergency room and the only catheter they can insert was an 18-Finnish [place] Sump nasogastric tube. Her usual 30-Finnish catheters or 24-Finnish catheters could not enter the pouch. Since that time, she has kept this 18-Finnish catheter taped in place to drainage bag and was advised to urgently come to [place]. She presented to our emergency room. The patient was stable and was admitted. She also has a history of chronic pouchitis. She usually takes cefdinir, but that did not affect her inability to catheterize her continent ileostomy pouch. BRIEF HOSPITAL COURSE: Patient was admitted. PICC line was inserted. On 10/31/2019, she underwent Canseco pouch endoscopy. Patient will require surgical revision of Canseco pouch polyp angulation. She tolerated the endoscopy well. She was then started on bowel prep. She was given IV antibiotics. She was started preoperatively with subcutaneous heparin. On 11/02/2019, she underwent laparotomy with revision of Canseco continent ileostomy valve and stoma. She tolerated the procedure well and left the operating room in stable condition. Postop day #1. She complained of nausea. IV Toradol was added to her regimen. Basal infusion of TRACK WATCHMAN was discontinued. Abdomen was soft and mildly distended. Incision clean. DIONNE drain in place in the left lower quadrant. Her tongue was coated white. She was given fluconazole and nystatin. Postop day #2. Patient was feeling better. She was ambulating in the room. Phosphorus was 2.4. Magnesium 1.7. She was given phosphorus and magnesium infusions. She was continued on n.p.o. Continue drainage of Canseco pouch. DIONNE drained 35 cc serosanguineous secretions. Postop day #3. Patient was ambulating in the hallways. Pain was managed with Dilaudid TRACK WATCHMAN and Toradol. Abdomen was soft, slightly distended. Incision clean. Patient had severe iron and folic acid deficiency. She was given Venofer, vitamin B12 IM, and folic acid. She was continued on n.p.o. status. Postop day #3. Patient was ambulating well. She was still using Toradol as needed. Malagon catheter was discontinued. TRACK WATCHMAN was discontinued and was given Percocet. She was continued on n.p.o. Postop day #4. Oral thrush was worse despite being on medications. She was given IV fluconazole. She was started on clear liquid diet. Postop day #5. Patient tolerated clear liquids but had incisional pain and nausea. Diet was increased to full liquid diet. Maintain continuous drainage of Canseco pouch. Postop day #6. Patient was tolerating full liquid diet. Patient has respiratory thrush despite multiple meds. ID specialist was consulted. DIONNE drain 22 cc. BCIR ileo drained 1015 cc. Postop day #7. Patient was tolerating BCIR diet. Patient WBC went up to 13.1. Urine was sent for culture. She was maintained on continuous drainage of the Canseco pouch. Postop day #8. Patient spiked a fever. Urinalysis was negative for UTI. Abdomen was soft, nontender, incision was clean. Stoma was healing nicely. Stat CT of the abdomen and pelvis with contrast was ordered. Patient was placed on n.p.o. Postop day #9. Patient has been afebrile. Eating BC IR diet 50%. Patient was getting Zosyn and vancomycin. CAT scan did not show any obvious abscess. Abdomen was soft, nontender, incision was clean. Stoma was healing with slight lateral separation. Postop day #10. Patient had some difficulty eating due to antibiotic-induced nausea and worse thrush. Continue Zosyn and vancomycin. She was continued on Venofer. Maintain continuous drainage of Canseco pouch. Postop day #11. Patient continues to be afebrile. Complained of nausea due to multiple antibiotics. Abdomen was soft, healing well. WBC went down to 11.4. She was continued on antibiotics per ID. IV fluids was discontinued. IV Zofran was changed to ODT. Postop day #12. Patient was tolerating BC IR diet 60%. She complained of nausea when IV meds were given. Abdomen was soft. Stoma healing with lateral area improved. PICC line was discontinued. Postop day #13. Nausea improved. She was tolerating 50% of BC IR diet with no significant abdominal pain. She was continued on IV antibiotics by ID. Crescent were removed. Patient had mild peristomal erythema. Nystatin cream was applied to peristomal skin. Postop day #14. Patient was feeling better. Eating 50% and tolerating Ensure twice daily. Abdomen was soft and well-healed. Peristomal rash was improved with nystatin. Patient has persistent leukocytosis, was continued on antibiotics. Postop day #15. Patient was eating and generally feeling well. She had abdominal ache until antibiotics were given then pain resolved. Stoma was irregular but intact. Patient had persistent leukocytosis. Postop day #16. Patient was feeling better. CT scan revealed probable 5 cm abscess on the anterior pelvis adjacent to the pouch. Patient was being given meropenem and micafungin. Patient was ordered to undergo CT-guided drainage of intra-abdominal abscess. Postop day #17. Repeat CT scan did not show any abscess. Collection seen was part of continent ileostomy pouch. BCIR ileal catheter was removed and inserts readily. Abdomen was soft. She was started on RN supervised intubation. Postop day #18. Patient was self intubating her Canseco pouch without difficulty. She is eating 75% of BCIR diet. WBC was downtrending. Postop day #19. Vital signs were stable. Patient was doing well with self intubation of Canseco pouch. Abdomen was soft, stoma healing nicely. Patient was prepared for discharge following day. Postop day #20. Patient was discharged. Instructions/limitations/supplies were discussed and provided. Patient to follow-up on November 25. Rx for Percocet and Zofran ODT. FINAL DIAGNOSES: 1. 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 2. History of ulcerative colitis. 3. STATUS POST MULTIPLE ABDOMINAL OPERATIONS: 3.1. Cholecystectomy. 3.2. section. 3.3. Abdominal colectomy and Kady ileostomy in 2013. 3.4. Canseco continent ileostomy with abdomino-perineal proctectomy in July 2017. 3.5. Total abdominal hysterectomy with revision of Canseco continent ileostomy in May 2018 (All [place] 3.6. Laparotomy with revision of Canseco continent ileostomy, partial valve dessusception in December 2018. 4.0 Oral thrush OPERATION PERFORMED: Laparotomy with revision of Canseco continent ileostomy valve and stoma. ENDOSCOPY PERFORMED: Canseco continent ileostomy pouch endoscopy. DISPOSITION: Patient was discharged home. DISCHARGE MEDICATIONS: Refer to Discharge Medication List. DISCHARGE INSTRUCTIONS: Follow-up on 11/26/2019. I have been assigned to complete a discharge summary on this account, I was not involved with the patient's management.--MORE Mckenna Jacqueline Robles NP Nov 25, 2019 18:11
== END 2019-11-23 10:00 | disposition home or self-care (01) | DRG 330 ==
LOC: EMR 15:45 → 3E 15:50 → EDBEDREQ 16:01 → EMR 16:05
DX: K94.13 Enterostomy malfunction (principal); K56.7 Ileus, unspecified; B37.0 Candidal stomatitis; K91.850 Pouchitis; N17.9 Acute kidney failure, unspecified; I97.42 Intraoperative hemorrhage and hematoma of a circulatory system organ or structure complicating other procedure; E87.6 Hypokalemia; Y83.3 Surgical operation with formation of external stoma as the cause of abnormal reaction of the patient, or of later complication, without mention of misadventure at the time of the procedure; E86.0 Dehydration; R00.0 Tachycardia, unspecified; T36.95XA Adverse effect of unspecified systemic antibiotic, initial encounter; Y92.230 Patient room in hospital as the place of occurrence of the external cause; R50.9 Fever, unspecified; D72.829 Elevated white blood cell count, unspecified; G89.18 Other acute postprocedural pain; D64.9 Anemia, unspecified; E53.8 Deficiency of other specified B group vitamins; E61.1 Iron deficiency; M79.7 Fibromyalgia; J45.909 Unspecified asthma, uncomplicated; L70.0 Acne vulgaris; H26.9 Unspecified cataract; N32.89 Other specified disorders of bladder; F32.9 Major depressive disorder, single episode, unspecified; F41.9 Anxiety disorder, unspecified; Z87.19 Personal history of other diseases of the digestive system; Z79.51 Long term (current) use of inhaled steroids; Z90.710 Acquired absence of both cervix and uterus; Z90.49 Acquired absence of other specified parts of digestive tract; Z98.890 Other specified postprocedural states
CPT/HCPCS: 36415; 36569; 71045; 72192; 74177; 76937; 80048; 80053; 80202; 81001; 81003; 81025; 82550; 82607; 82746; 83540; 83550; 83690; 83735; 84100; 85025; 85610; 85730; 86850; 86900; 86901; 87040; 87070; 87086; 87181; 93005; 94003; 94150; 94640; 94664; 96361; 96365; 99285; J2250; J2405; J7030; U0002